=== PATIENT | female | born 1940 | race Caucasian/White ===

== ENCOUNTER 2018-06-30 09:51 | Outpatient (CLI) | payer OTHER, SELFPAY ==
[2018-06-30 10:08] LABS: Absolute Basophil Count 0.01 k/cumm (0.0-0.2); Absolute Eosinophil Count 0.04 k/cumm (0.0-0.7); Absolute Lymphocyte Count 1.12 k/cumm (1.2-3.4); Absolute Monocyte Count 0.39 k/cumm (0.11-0.7); Absolute Neutrophil Count 2.36 k/cumm (1.2-6.7); Basophils % 0.3; HCT 41.4 % (36.0-46.0); HGB 13.8 g/dL (12.0-15.5); Lymphocytes % 28.6; Mean Corp. HGB Concentration 33.3 g/dL (32.0-36.0); Mean Corpuscular Hemoglobin 36.2 pg (27.0-33.0); Mean Corpuscular Volume 108.7 fL (80-95); Mean Platelet Volume 10.3 fL (8.0-11.0); Monocytes % 9.9; Neutrophils % 60.2; Platelet Count 139 x1000/uL (130-400); RBC 3.81 m/cumm (4.00-5.20); RBC Distribution Width 14.2 % (11.7-14.6); White Blood Cell Count 3.92 k/cumm (4.4-10.8)
[2018-06-30 10:24] LABS: ALT 31 U/L (12-78); AST 21 U/L (15-37); Albumin 3.5 g/dL (3.4-5.0); Alkaline Phosphatase 241 U/L (46-116); Anion Gap 3.8 mmol/L (3-11); BUN 22 mg/dL (7-18); Bilirubin, Total 0.5 mg/dL (0.2-1.0); CO2 37.2 mmol/L (21.0-32.0); CREATININE 1.99 mg/dL (0.55-1.02); Calcium 8.8 mg/dL (8.5-10.1); Chloride 97 mmol/L (98-107); Estimated GFR 24.43 (mL/min/1.73m2); Glucose 96 mg/dL (70-100); Potassium 3.7 mmol/L (3.5-5.1); Sodium 138 mmol/L (136-145); Total Protein 6.9 g/dL (6.4-8.2)
[2018-07-03 11:05] LABS: Kappa Free Light Chain 4.68 mg/dl (0.33-1.94); Lambda Free Light Chain 4.14 mg/dl (0.57-2.63)
[2018-07-03 13:13] LABS: Albumin 64.4 % (55.8-66.1); Comment SEE COMMENTS; Total Protein 6.1 g/dl (6.3-8.2)
[2018-07-05 08:48] LABS: Immunotyping, Serum Interpretation:
== END 2018-06-30 09:52 ==
PROVIDERS: PCP Family Medicine; Visit Provider Internal Medicine Hematology & Oncology
DX: C90.00 Multiple myeloma not having achieved remission (principal)
CPT/HCPCS: 36415; 80053; 83883; 84165; 85025; 86320

== ENCOUNTER 2018-07-28 09:57 | Outpatient (CLI) | payer OTHER, SELFPAY ==
[2018-07-28 10:20] LABS: Abs Immature Grans 0.01 k/cumm (0.0-0.09); Absolute Basophil Count 0.01 k/cumm (0.0-0.2); Absolute Lymphocyte Count 0.87 k/cumm (1.2-3.4); Absolute Monocyte Count 0.35 k/cumm (0.11-0.7); Absolute Neutrophil Count 3.28 k/cumm (1.2-6.7); Basophils % 0.2; Eosinophils % 2.2; HCT 34.7 % (36.0-46.0); HGB 11.6 g/dL (12.0-15.5); Immature Grans % 0.2; Lymphocytes % 18.8; Mean Corp. HGB Concentration 33.4 g/dL (32.0-36.0); Mean Corpuscular Hemoglobin 35.3 pg (27.0-33.0); Mean Corpuscular Volume 105.5 fL (80-95); Mean Platelet Volume 10.3 fL (8.0-11.0); Monocytes % 7.6; Platelet Count 134 x1000/uL (130-400); RBC 3.29 m/cumm (4.00-5.20); RBC Distribution Width 12.2 % (11.7-14.6); White Blood Cell Count 4.62 k/cumm (4.4-10.8)
[2018-07-28 10:38] LABS: ALT 37 U/L (12-78); AST 22 U/L (15-37); Albumin 3.3 g/dL (3.4-5.0); Alkaline Phosphatase 291 U/L (46-116); Anion Gap 4.7 mmol/L (3-11); BUN 17 mg/dL (7-18); Bilirubin, Total 0.4 mg/dL (0.2-1.0); CO2 36.3 mmol/L (21.0-32.0); CREATININE 1.69 mg/dL (0.55-1.02); Calcium 8.9 mg/dL (8.5-10.1); Chloride 97 mmol/L (98-107); Glucose 92 mg/dL (70-100); Potassium 3.8 mmol/L (3.5-5.1); Sodium 138 mmol/L (136-145)
[2018-07-31 09:55] LABS: Kappa Free Light Chain 5.46 mg/dl (0.33-1.94)
[2018-07-31 14:43] LABS: Albumin 60.6 % (55.8-66.1); Total Protein 6.2 g/dl (6.3-8.2)
[2018-08-01 12:42] LABS: Monoclonal Spike SEE COMMENTS %
== END 2018-07-28 10:17 ==
PROVIDERS: PCP Family Medicine; Visit Provider Internal Medicine Hematology & Oncology
DX: C90.00 Multiple myeloma not having achieved remission (principal); N18.6 End stage renal disease; E11.9 Type 2 diabetes mellitus without complications; E03.9 Hypothyroidism, unspecified
CPT/HCPCS: 36415; 80053; 83883; 84165; 85025

== ENCOUNTER 2018-08-25 10:06 | Outpatient (CLI) | payer OTHER, SELFPAY ==
[2018-08-25 10:34] LABS: Absolute Basophil Count 0.01 k/cumm (0.0-0.2); Absolute Lymphocyte Count 0.95 k/cumm (1.2-3.4); Absolute Monocyte Count 0.38 k/cumm (0.11-0.7); Absolute Neutrophil Count 2.49 k/cumm (1.2-6.7); Basophils % 0.3; Eosinophils % 2.5; HCT 29.1 % (36.0-46.0); HGB 9.7 g/dL (12.0-15.5); Lymphocytes % 24.2; Mean Corp. HGB Concentration 33.3 g/dL (32.0-36.0); Mean Corpuscular Hemoglobin 35.5 pg (27.0-33.0); Mean Corpuscular Volume 106.6 fL (80-95); Mean Platelet Volume 9.2 fL (8.0-11.0); Monocytes % 9.7; Neutrophils % 63.3; Platelet Count 157 x1000/uL (130-400); RBC 2.73 m/cumm (4.00-5.20); RBC Distribution Width 13.8 % (11.7-14.6); White Blood Cell Count 3.93 k/cumm (4.4-10.8)
[2018-08-25 10:47] LABS: ALT 33 U/L (12-78); AST 24 U/L (15-37); Alkaline Phosphatase 269 U/L (46-116); Anion Gap 2.9 mmol/L (3-11); BUN 21 mg/dL (7-18); Bilirubin, Total 0.4 mg/dL (0.2-1.0); CO2 37.1 mmol/L (21.0-32.0); CREATININE 1.73 mg/dL (0.55-1.02); Calcium 8.5 mg/dL (8.5-10.1); Chloride 98 mmol/L (98-107); Estimated GFR 28.71 (mL/min/1.73m2); Glucose 73 mg/dL (70-100); Potassium 3.4 mmol/L (3.5-5.1); Sodium 138 mmol/L (136-145); Total Protein 6.6 g/dL (6.4-8.2)
[2018-08-28 09:28] LABS: Kappa Free Light Chain 6.15 mg/dl (0.33-1.94); Lambda Free Light Chain 6.64 mg/dl (0.57-2.63)
[2018-08-28 14:03] LABS: CMV IgG Antibody Positive
[2018-08-28 14:16] LABS: Albumin 59.7 % (55.8-66.1); Total Protein 5.9 g/dl (6.3-8.2)
== END 2018-08-25 10:26 ==
PROVIDERS: PCP Family Medicine; Visit Provider Internal Medicine Hematology & Oncology
DX: C90.00 Multiple myeloma not having achieved remission (principal)
CPT/HCPCS: 36415; 80053; 83883; 84165; 85025; 86644

== ENCOUNTER 2018-09-22 10:08 | Outpatient (CLI) | payer OTHER, SELFPAY ==
[2018-09-22 10:36] LABS: Abs Immature Grans 0.01 k/cumm (0.0-0.09); Absolute Basophil Count 0.01 k/cumm (0.0-0.2); Absolute Eosinophil Count 0.13 k/cumm (0.0-0.7); Absolute Lymphocyte Count 0.95 k/cumm (1.2-3.4); Absolute Monocyte Count 0.31 k/cumm (0.11-0.7); Basophils % 0.3; Eosinophils % 3.3; HCT 30.6 % (36.0-46.0); HGB 9.8 g/dL (12.0-15.5); Immature Grans % 0.3; Lymphocytes % 24.3; Mean Corpuscular Hemoglobin 35.5 pg (27.0-33.0); Mean Corpuscular Volume 110.9 fL (80-95); Mean Platelet Volume 9.8 fL (8.0-11.0); Monocytes % 7.9; Neutrophils % 63.9; Platelet Count 131 x1000/uL (130-400); RBC 2.76 m/cumm (4.00-5.20); RBC Distribution Width 15.8 % (11.7-14.6); White Blood Cell Count 3.91 k/cumm (4.4-10.8)
[2018-09-22 11:10] LABS: ALT 37 U/L (12-78); AST 24 U/L (15-37); Albumin 3.1 g/dL (3.4-5.0); Alkaline Phosphatase 236 U/L (46-116); Anion Gap 4.1 mmol/L (3-11); BUN 16 mg/dL (7-18); Bilirubin, Total 0.7 mg/dL (0.2-1.0); CO2 35.9 mmol/L (21.0-32.0); CREATININE 1.73 mg/dL (0.55-1.02); Calcium 8.6 mg/dL (8.5-10.1); Chloride 99 mmol/L (98-107); Estimated GFR 28.71 (mL/min/1.73m2); Glucose 69 mg/dL (70-100); Potassium 3.3 mmol/L (3.5-5.1); Sodium 139 mmol/L (136-145); Total Protein 6.4 g/dL (6.4-8.2)
[2018-09-25 10:39] LABS: Lambda Free Light Chain 4.86 mg/dl (0.57-2.63)
[2018-09-25 13:20] LABS: Albumin 60.6 % (55.8-66.1); Monoclonal Spike SEE COMMENTS %; Total Protein 5.8 g/dl (6.3-8.2)
== END 2018-09-22 10:28 ==
PROVIDERS: PCP Family Medicine; Visit Provider Internal Medicine Hematology & Oncology
DX: C90.00 Multiple myeloma not having achieved remission (principal)
CPT/HCPCS: 36415; 80053; 83883; 84165; 85025

== ENCOUNTER 2018-09-27 15:43 | Outpatient (REF) | payer OTHER, SELFPAY | END 2018-09-27 16:03 | LOC: LBN 15:43 | PROVIDERS: PCP Family Medicine; Visit Provider Nurse Practitioner Family | DX: C90.00 Multiple myeloma not having achieved remission (principal) | CPT/HCPCS: 87070; 87205 ==

== ENCOUNTER 2018-10-16 10:20 | Outpatient (CLI) | payer OTHER, SELFPAY ==
[2018-10-16 10:53] LABS: Abs Immature Grans 0.02 k/cumm (0.0-0.09); Absolute Basophil Count 0.01 k/cumm (0.0-0.2); Absolute Eosinophil Count 0.11 k/cumm (0.0-0.7); Absolute Lymphocyte Count 1.31 k/cumm (1.2-3.4); Absolute Neutrophil Count 3.75 k/cumm (1.2-6.7); Basophils % 0.2; Eosinophils % 1.9; HCT 32.8 % (36.0-46.0); HGB 10.4 g/dL (12.0-15.5); Immature Grans % 0.3; Lymphocytes % 22.6; Mean Corp. HGB Concentration 31.7 g/dL (32.0-36.0); Mean Corpuscular Hemoglobin 35.4 pg (27.0-33.0); Mean Corpuscular Volume 111.6 fL (80-95); Mean Platelet Volume 10.1 fL (8.0-11.0); Monocytes % 10.3; Neutrophils % 64.7; Platelet Count 133 x1000/uL (130-400); RBC 2.94 m/cumm (4.00-5.20); RBC Distribution Width 13.9 % (11.7-14.6)
[2018-10-16 11:06] LABS: ALT 31 U/L (12-78); AST 22 U/L (15-37); Alkaline Phosphatase 222 U/L (46-116); Anion Gap 8.5 mmol/L (3-11); BUN 23 mg/dL (7-18); Bilirubin, Total 0.4 mg/dL (0.2-1.0); CO2 32.5 mmol/L (21.0-32.0); CREATININE 2.43 mg/dL (0.55-1.02); Calcium 8.7 mg/dL (8.5-10.1); Chloride 100 mmol/L (98-107); Glucose 106 mg/dL (70-100); Potassium 3.9 mmol/L (3.5-5.1); Sodium 141 mmol/L (136-145); Total Protein 6.4 g/dL (6.4-8.2)
[2018-10-17 11:56] LABS: Kappa Free Light Chain 5.04 mg/dl (0.33-1.94); Lambda Free Light Chain 4.66 mg/dl (0.57-2.63)
[2018-10-17 12:41] LABS: Albumin 58.3 % (55.8-66.1); Total Protein 5.7 g/dl (6.3-8.2)
== END 2018-10-16 10:40 ==
PROVIDERS: PCP Family Medicine; Visit Provider Internal Medicine Hematology & Oncology
DX: C90.00 Multiple myeloma not having achieved remission (principal)
CPT/HCPCS: 36415; 80053; 83883; 84165; 85025; 86320

== ENCOUNTER 2018-10-30 07:16 | Outpatient (REF) | payer OTHER, SELFPAY ==
[2018-10-30 07:32] LABS: Abs Immature Grans 0.01 k/cumm (0.0-0.09); Absolute Basophil Count 0.02 k/cumm (0.0-0.2); Absolute Eosinophil Count 0.29 k/cumm (0.0-0.7); Absolute Lymphocyte Count 0.98 k/cumm (1.2-3.4); Absolute Monocyte Count 0.43 k/cumm (0.11-0.7); Absolute Neutrophil Count 4.33 k/cumm (1.2-6.7); Basophils % 0.3; Eosinophils % 4.8; HCT 30.9 % (36.0-46.0); HGB 10.1 g/dL (12.0-15.5); Immature Grans % 0.2; Lymphocytes % 16.2; Mean Corp. HGB Concentration 32.7 g/dL (32.0-36.0); Mean Corpuscular Hemoglobin 35.2 pg (27.0-33.0); Mean Corpuscular Volume 107.7 fL (80-95); Mean Platelet Volume 9.9 fL (8.0-11.0); Monocytes % 7.1; Neutrophils % 71.4; RBC 2.87 m/cumm (4.00-5.20); RBC Distribution Width 13.8 % (11.7-14.6); White Blood Cell Count 6.06 k/cumm (4.4-10.8)
[2018-10-30 07:52] LABS: ALT 30 U/L (12-78); AST 23 U/L (15-37); Alkaline Phosphatase 346 U/L (46-116); Anion Gap 13.3 mmol/L (3-11); Bilirubin, Total 0.4 mg/dL (0.2-1.0); CO2 25.7 mmol/L (21.0-32.0); Calcium 8.5 mg/dL (8.5-10.1); Chloride 99 mmol/L (98-107); Estimated GFR 8.42 (mL/min/1.73m2); Glucose 94 mg/dL (70-100); Macrocytosis 2+; Platelet Count 225 x1000/uL (130-400); Potassium 4.1 mmol/L (3.5-5.1); Sodium 138 mmol/L (136-145); Total Protein 6.2 g/dL (6.4-8.2)
[2018-10-30 07:59] LABS: BUN 96 mg/dL (7-18); CREATININE 5.01 mg/dL (0.55-1.02)
[2018-10-31 10:47] LABS: Kappa Free Light Chain 7.05 mg/dl (0.33-1.94); Lambda Free Light Chain 4.66 mg/dl (0.57-2.63)
[2018-10-31 12:58] LABS: Albumin 60.9 % (55.8-66.1); Total Protein 5.5 g/dl (6.3-8.2)
[2018-11-01 13:02] LABS: CMV IgG Antibody Positive
== END 2018-10-30 07:36 ==
LOC: LBO 07:16
PROVIDERS: PCP Family Medicine; Visit Provider Internal Medicine Hematology & Oncology
DX: C90.00 Multiple myeloma not having achieved remission (principal)
CPT/HCPCS: 80053; 83883; 84165; 85025; 86644

== ENCOUNTER 2018-11-27 06:58 | Outpatient (REF) | payer OTHER, SELFPAY ==
[2018-11-27 07:10] LABS: Abs Immature Grans 0.01 k/cumm (0.0-0.09); Absolute Basophil Count 0.02 k/cumm (0.0-0.2); Absolute Lymphocyte Count 1.25 k/cumm (1.2-3.4); Absolute Monocyte Count 0.39 k/cumm (0.11-0.7); Absolute Neutrophil Count 2.86 k/cumm (1.2-6.7); Basophils % 0.4; Eosinophils % 4.2; HCT 34.6 % (36.0-46.0); HGB 11.5 g/dL (12.0-15.5); Immature Grans % 0.2; Lymphocytes % 26.4; Mean Corp. HGB Concentration 33.2 g/dL (32.0-36.0); Mean Corpuscular Hemoglobin 35.1 pg (27.0-33.0); Mean Corpuscular Volume 105.5 fL (80-95); Mean Platelet Volume 10.1 fL (8.0-11.0); Monocytes % 8.2; Neutrophils % 60.6; Platelet Count 126 x1000/uL (130-400); RBC 3.28 m/cumm (4.00-5.20); White Blood Cell Count 4.73 k/cumm (4.4-10.8)
[2018-11-27 07:19] LABS: ALT 49 U/L (12-78); AST 41 U/L (15-37); Albumin 3.4 g/dL (3.4-5.0); Alkaline Phosphatase 295 U/L (46-116); Anion Gap 10.2 mmol/L (3-11); Bilirubin, Total 0.4 mg/dL (0.2-1.0); CO2 24.8 mmol/L (21.0-32.0); Calcium 8.7 mg/dL (8.5-10.1); Chloride 100 mmol/L (98-107); Estimated GFR 7.21 (mL/min/1.73m2); Glucose 84 mg/dL (70-100); Potassium 4.7 mmol/L (3.5-5.1); Sodium 135 mmol/L (136-145); Total Protein 6.5 g/dL (6.4-8.2)
[2018-11-27 07:40] LABS: Macrocytosis 2+
[2018-11-27 08:14] LABS: BUN 87 mg/dL (7-18); CREATININE 5.73 mg/dL (0.55-1.02)
[2018-11-28 11:53] LABS: Kappa Free Light Chain 7.18 mg/dl (0.33-1.94); Lambda Free Light Chain 4.44 mg/dl (0.57-2.63)
[2018-11-28 13:08] LABS: Albumin 62.5 % (55.8-66.1)
[2018-11-28 15:13] LABS: CMV Ab, IgM Negative (Negative)
== END 2018-11-27 07:18 ==
LOC: LBN 06:58
PROVIDERS: PCP Family Medicine; Visit Provider Internal Medicine Hematology & Oncology
DX: C90.00 Multiple myeloma not having achieved remission (principal)
CPT/HCPCS: 80053; 83883; 84165; 85025; 86644; 86645

== ENCOUNTER 2018-12-25 06:25 | Outpatient (REF) | payer OTHER, SELFPAY ==
[2018-12-25 06:43] LABS: Abs Immature Grans 0.01 k/cumm (0.0-0.09); Absolute Basophil Count 0.02 k/cumm (0.0-0.2); Absolute Eosinophil Count 0.17 k/cumm (0.0-0.7); Absolute Lymphocyte Count 1.03 k/cumm (1.2-3.4); Absolute Monocyte Count 0.46 k/cumm (0.11-0.7); Basophils % 0.4; Eosinophils % 3.3; HCT 31.5 % (36.0-46.0); HGB 10.4 g/dL (12.0-15.5); Immature Grans % 0.2; Lymphocytes % 20.2; Mean Corpuscular Hemoglobin 34.6 pg (27.0-33.0); Mean Corpuscular Volume 104.7 fL (80-95); Mean Platelet Volume 9.8 fL (8.0-11.0); Neutrophils % 66.9; Platelet Count 145 x1000/uL (130-400); RBC 3.01 m/cumm (4.00-5.20); RBC Distribution Width 13.8 % (11.7-14.6); White Blood Cell Count 5.09 k/cumm (4.4-10.8)
[2018-12-25 06:52] LABS: ALT 39 U/L (12-78); AST 30 U/L (15-37); Albumin 3.3 g/dL (3.4-5.0); Alkaline Phosphatase 248 U/L (46-116); Anion Gap 10.4 mmol/L (3-11); Bilirubin, Total 0.4 mg/dL (0.2-1.0); CO2 25.6 mmol/L (21.0-32.0); Calcium 8.7 mg/dL (8.5-10.1); Chloride 100 mmol/L (98-107); Estimated GFR 6.42 (mL/min/1.73m2); Glucose 98 mg/dL (70-100); Potassium 4.3 mmol/L (3.5-5.1); Sodium 136 mmol/L (136-145); Total Protein 6.4 g/dL (6.4-8.2)
[2018-12-25 07:56] LABS: BUN 80 mg/dL (7-18); CREATININE 6.32 mg/dL (0.55-1.02)
[2018-12-26 10:57] LABS: Kappa Free Light Chain 5.96 mg/dl (0.33-1.94)
[2018-12-26 12:43] LABS: Albumin 64.3 % (55.8-66.1); Total Protein 5.8 g/dl (6.3-8.2)
[2018-12-26 13:03] LABS: CMV Ab, IgM Negative (Negative)
== END 2018-12-25 06:45 ==
LOC: LBO 06:25
PROVIDERS: PCP Family Medicine; Visit Provider Internal Medicine Hematology & Oncology
DX: C90.00 Multiple myeloma not having achieved remission (principal)
CPT/HCPCS: 80053; 83883; 84165; 85025; 86644; 86645

== ENCOUNTER 2019-01-22 07:28 | Outpatient (REF) | payer OTHER, SELFPAY ==
[2019-01-22 08:06] LABS: ALT 35 U/L (12-78); AST 28 U/L (15-37); Albumin 3.5 g/dL (3.4-5.0); Alkaline Phosphatase 246 U/L (46-116); Anion Gap 11.5 mmol/L (3-11); Bilirubin, Total 0.5 mg/dL (0.2-1.0); CO2 24.5 mmol/L (21.0-32.0); Calcium 8.8 mg/dL (8.5-10.1); Chloride 104 mmol/L (98-107); Estimated GFR 6.86 (mL/min/1.73m2); Glucose 82 mg/dL (70-100); Potassium 4.8 mmol/L (3.5-5.1); Sodium 140 mmol/L (136-145); Total Protein 6.2 g/dL (6.4-8.2)
[2019-01-22 08:18] LABS: BUN 92 mg/dL (7-18)
[2019-01-22 08:19] LABS: CREATININE 5.97 mg/dL (0.55-1.02)
[2019-01-23 12:29] LABS: Kappa Free Light Chain 5.91 mg/dl (0.33-1.94); Lambda Free Light Chain 3.73 mg/dl (0.57-2.63)
[2019-01-23 13:09] LABS: Albumin 60.8 % (55.8-66.1); Comment SEE COMMENTS; Total Protein 6.4 g/dl (6.3-8.2)
[2019-01-23 19:34] LABS: CMV DNA Detect/Quant, P Undetected IU/mL (Undetected)
[2019-01-24 10:39] LABS: Abs Immature Grans 0.01 k/cumm (0.0-0.09); Absolute Basophil Count 0.01 k/cumm (0.0-0.2); Absolute Eosinophil Count 0.17 k/cumm (0.0-0.7); Absolute Lymphocyte Count 0.82 k/cumm (1.2-3.4); Absolute Monocyte Count 0.43 k/cumm (0.11-0.7); Basophils % 0.3; Eosinophils % 4.5; HCT 32.9 % (36.0-46.0); HGB 10.7 g/dL (12.0-15.5); Immature Grans % 0.3; Lymphocytes % 21.9; Mean Corp. HGB Concentration 32.5 g/dL (32.0-36.0); Mean Corpuscular Hemoglobin 35.7 pg (27.0-33.0); Mean Corpuscular Volume 109.7 fL (80-95); Mean Platelet Volume 11.8 fL (8.0-11.0); Monocytes % 11.5; Neutrophils % 61.5; Platelet Count 135 x1000/uL (130-400); White Blood Cell Count 3.74 k/cumm (4.4-10.8)
== END 2019-01-22 07:48 ==
LOC: LBN 07:28
PROVIDERS: PCP Family Medicine; Visit Provider Internal Medicine Hematology & Oncology
DX: C90.00 Multiple myeloma not having achieved remission (principal)
CPT/HCPCS: 80053; 83883; 84165; 85025; 86320; 87497

== ENCOUNTER 2019-02-19 06:51 | Outpatient (REF) | payer OTHER, SELFPAY ==
[2019-02-19 09:49] LABS: ALT 31 U/L (12-78); AST 23 U/L (15-37); Albumin 3.3 g/dL (3.4-5.0); Alkaline Phosphatase 240 U/L (46-116); BUN 79 mg/dL (7-18); Bilirubin, Total 0.4 mg/dL (0.2-1.0); Calcium 8.9 mg/dL (8.5-10.1); Chloride 101 mmol/L (98-107); Glucose 82 mg/dL (70-100); Potassium 4.3 mmol/L (3.5-5.1); Sodium 137 mmol/L (136-145)
[2019-02-19 09:50] LABS: Abs Immature Grans 0.01 k/cumm (0.0-0.09); Absolute Basophil Count 0.01 k/cumm (0.0-0.2); Absolute Eosinophil Count 0.09 k/cumm (0.0-0.7); Absolute Lymphocyte Count 0.88 k/cumm (1.2-3.4); Basophils % 0.2; Eosinophils % 2.1; HCT 32.3 % (36.0-46.0); HGB 10.9 g/dL (12.0-15.5); Immature Grans % 0.2; Lymphocytes % 20.9; Mean Corp. HGB Concentration 33.7 g/dL (32.0-36.0); Mean Corpuscular Hemoglobin 35.7 pg (27.0-33.0); Mean Corpuscular Volume 105.9 fL (80-95); Mean Platelet Volume 10.2 fL (8.0-11.0); Monocytes % 7.1; Neutrophils % 69.5; Platelet Count 131 x1000/uL (130-400); RBC 3.05 m/cumm (4.00-5.20); RBC Distribution Width 12.5 % (11.7-14.6); White Blood Cell Count 4.21 k/cumm (4.4-10.8)
[2019-02-19 09:51] LABS: Absolute Neutrophil Count 2.93 k/cumm (1.2-6.7)
[2019-02-19 09:59] LABS: CREATININE 5.06 mg/dL (0.55-1.02)
[2019-02-19 10:34] LABS: Anisocytosis 1+; Basophilic Stippling Present; Diff Comment Diff Reviewed
[2019-02-19 10:35] LABS: Macrocytosis 2+; Polychromasia Present
[2019-02-20 10:55] LABS: Kappa Free Light Chain 7.75 mg/dl (0.33-1.94); Lambda Free Light Chain 4.04 mg/dl (0.57-2.63)
[2019-02-20 13:27] LABS: Albumin 64.1 % (55.8-66.1); Total Protein 5.8 g/dl (6.3-8.2)
== END 2019-02-19 07:11 ==
LOC: LBN 06:51
PROVIDERS: PCP Family Medicine; Visit Provider Internal Medicine Hematology & Oncology
DX: C90.00 Multiple myeloma not having achieved remission (principal)
CPT/HCPCS: 80053; 83883; 84165; 85025

== ENCOUNTER 2019-03-19 06:43 | Outpatient (REF) | payer OTHER, SELFPAY ==
[2019-03-19 07:12] LABS: Abs Immature Grans 0.01 k/cumm (0.0-0.09); Absolute Basophil Count 0.01 k/cumm (0.0-0.2); Absolute Eosinophil Count 0.19 k/cumm (0.0-0.7); Absolute Lymphocyte Count 0.93 k/cumm (1.2-3.4); Absolute Monocyte Count 0.51 k/cumm (0.11-0.7); Absolute Neutrophil Count 3.77 k/cumm (1.2-6.7); Basophils % 0.2; Eosinophils % 3.5; HCT 31.8 % (36.0-46.0); HGB 10.5 g/dL (12.0-15.5); Immature Grans % 0.2; Lymphocytes % 17.2; Mean Corpuscular Hemoglobin 33.9 pg (27.0-33.0); Mean Corpuscular Volume 102.6 fL (80-95); Monocytes % 9.4; Neutrophils % 69.5; Platelet Count 151 x1000/uL (130-400); RBC Distribution Width 11.9 % (11.7-14.6); White Blood Cell Count 5.42 k/cumm (4.4-10.8)
[2019-03-19 07:25] LABS: ALT 36 U/L (12-78); AST 26 U/L (15-37); Albumin 3.3 g/dL (3.4-5.0); Alkaline Phosphatase 274 U/L (46-116); BUN 69 mg/dL (7-18); Bilirubin, Total 0.4 mg/dL (0.2-1.0); Calcium 8.8 mg/dL (8.5-10.1); Chloride 99 mmol/L (98-107); Estimated GFR 9.02 (mL/min/1.73m2); Glucose 91 mg/dL (70-100); Potassium 4.6 mmol/L (3.5-5.1); Sodium 135 mmol/L (136-145); Total Protein 6.5 g/dL (6.4-8.2)
[2019-03-19 08:19] LABS: CREATININE 4.71 mg/dL (0.55-1.02)
[2019-03-20 10:43] LABS: IgA 67 mg/dL (85-499); IgG 627 mg/dL (610-1616); IgM 166 mg/dL (35-242)
[2019-03-20 14:08] LABS: Albumin 62.6 % (55.8-66.1)
== END 2019-03-19 07:03 ==
LOC: LBN 06:43
PROVIDERS: PCP Family Medicine; Visit Provider Internal Medicine Hematology & Oncology
DX: C90.00 Multiple myeloma not having achieved remission (principal)
CPT/HCPCS: 80053; 82784; 84165; 85025

== ENCOUNTER 2019-04-16 06:29 | Outpatient (REF) | payer OTHER, SELFPAY ==
[2019-04-16 06:58] LABS: Abs Immature Grans 0.02 k/cumm (0.0-0.09); Absolute Basophil Count 0.01 k/cumm (0.0-0.2); Absolute Eosinophil Count 0.11 k/cumm (0.0-0.7); Absolute Lymphocyte Count 1.03 k/cumm (1.2-3.4); Absolute Monocyte Count 0.36 k/cumm (0.11-0.7); Absolute Neutrophil Count 3.96 k/cumm (1.2-6.7); Basophils % 0.2; HCT 34.6 % (36.0-46.0); HGB 11.7 g/dL (12.0-15.5); Immature Grans % 0.4; Lymphocytes % 18.8; Mean Corp. HGB Concentration 33.8 g/dL (32.0-36.0); Mean Corpuscular Hemoglobin 34.7 pg (27.0-33.0); Mean Corpuscular Volume 102.7 fL (80-95); Mean Platelet Volume 9.9 fL (8.0-11.0); Monocytes % 6.6; Platelet Count 159 x1000/uL (130-400); RBC 3.37 m/cumm (4.00-5.20); RBC Distribution Width 13.1 % (11.7-14.6); White Blood Cell Count 5.49 k/cumm (4.4-10.8)
[2019-04-16 07:21] LABS: ALT 38 U/L (12-78); AST 29 U/L (15-37); Albumin 3.4 g/dL (3.4-5.0); Alkaline Phosphatase 265 U/L (46-116); Anion Gap 9.8 mmol/L (3-11); Bilirubin, Total 0.3 mg/dL (0.2-1.0); CO2 25.2 mmol/L (21.0-32.0); Calcium 8.7 mg/dL (8.5-10.1); Chloride 98 mmol/L (98-107); Glucose 92 mg/dL (70-100); Potassium 4.8 mmol/L (3.5-5.1); Sodium 133 mmol/L (136-145); Total Protein 6.6 g/dL (6.4-8.2)
[2019-04-16 08:26] LABS: BUN 81 mg/dL (7-18)
[2019-04-16 08:27] LABS: CREATININE 4.63 mg/dL (0.55-1.02)
[2019-04-17 10:56] LABS: Kappa Free Light Chain 7.55 mg/dl (0.33-1.94); Lambda Free Light Chain 4.75 mg/dl (0.57-2.63)
[2019-04-17 14:05] LABS: Albumin 63.3 % (55.8-66.1); Total Protein 6.4 g/dl (6.3-8.2)
== END 2019-04-16 06:49 ==
LOC: LBN 06:29
PROVIDERS: PCP Family Medicine; Visit Provider Internal Medicine Hematology & Oncology
DX: C90.00 Multiple myeloma not having achieved remission (principal)
CPT/HCPCS: 80053; 83883; 84165; 85025

== ENCOUNTER 2019-05-14 06:53 | Outpatient (REF) | payer OTHER, SELFPAY ==
[2019-05-14 07:11] LABS: Abs Immature Grans 0.01 k/cumm (0.0-0.09); Absolute Basophil Count 0.03 k/cumm (0.0-0.2); Absolute Eosinophil Count 0.08 k/cumm (0.0-0.7); Absolute Lymphocyte Count 0.95 k/cumm (1.2-3.4); Absolute Monocyte Count 0.45 k/cumm (0.11-0.7); Absolute Neutrophil Count 3.13 k/cumm (1.2-6.7); Basophils % 0.6; Eosinophils % 1.7; HCT 32.1 % (36.0-46.0); HGB 10.9 g/dL (12.0-15.5); Immature Grans % 0.2; Lymphocytes % 20.4; Mean Corpuscular Hemoglobin 34.5 pg (27.0-33.0); Mean Corpuscular Volume 101.6 fL (80-95); Mean Platelet Volume 9.9 fL (8.0-11.0); Monocytes % 9.7; Neutrophils % 67.4; Platelet Count 131 x1000/uL (130-400); RBC 3.16 m/cumm (4.00-5.20); RBC Distribution Width 12.5 % (11.7-14.6); White Blood Cell Count 4.65 k/cumm (4.4-10.8)
[2019-05-14 07:13] LABS: ALT 36 U/L (12-78); AST 30 U/L (15-37); Albumin 3.4 g/dL (3.4-5.0); Alkaline Phosphatase 262 U/L (46-116); Anion Gap 10.8 mmol/L (3-11); BUN 61 mg/dL (7-18); Bilirubin, Total 0.4 mg/dL (0.2-1.0); CO2 23.2 mmol/L (21.0-32.0); Calcium 8.6 mg/dL (8.5-10.1); Chloride 101 mmol/L (98-107); Estimated GFR 10.12 (mL/min/1.73m2); Glucose 96 mg/dL (70-100); Potassium 4.8 mmol/L (3.5-5.1); Sodium 135 mmol/L (136-145); Total Protein 6.5 g/dL (6.4-8.2)
[2019-05-14 07:46] LABS: CREATININE 4.26 mg/dL (0.55-1.02)
[2019-05-15 10:43] LABS: Lambda Free Light Chain 4.25 mg/dl (0.57-2.63)
[2019-05-15 12:06] LABS: Albumin 63.3 % (55.8-66.1); Total Protein 5.8 g/dl (6.3-8.2)
== END 2019-05-14 07:13 ==
LOC: LBN 06:53
PROVIDERS: PCP Family Medicine; Visit Provider Internal Medicine Hematology & Oncology
DX: C90.00 Multiple myeloma not having achieved remission (principal)
CPT/HCPCS: 80053; 83883; 84165; 85025

== ENCOUNTER 2019-06-25 06:45 | Outpatient (REF) | payer OTHER, SELFPAY ==
[2019-06-25 07:38] LABS: Abs Immature Grans 0.01 k/cumm (0.0-0.09); Absolute Basophil Count 0.01 k/cumm (0.0-0.2); Absolute Eosinophil Count 0.05 k/cumm (0.0-0.7); Absolute Lymphocyte Count 0.79 k/cumm (1.2-3.4); Absolute Monocyte Count 0.34 k/cumm (0.11-0.7); Absolute Neutrophil Count 2.76 k/cumm (1.2-6.7); Basophils % 0.3; Eosinophils % 1.3; HCT 33.5 % (36.0-46.0); HGB 11.3 g/dL (12.0-15.5); Immature Grans % 0.3; Lymphocytes % 19.9; Mean Corp. HGB Concentration 33.7 g/dL (32.0-36.0); Mean Corpuscular Hemoglobin 34.8 pg (27.0-33.0); Mean Corpuscular Volume 103.1 fL (80-95); Mean Platelet Volume 10.1 fL (8.0-11.0); Monocytes % 8.6; Neutrophils % 69.6; Platelet Count 150 x1000/uL (130-400); RBC 3.25 m/cumm (4.00-5.20); RBC Distribution Width 13.1 % (11.7-14.6); White Blood Cell Count 3.96 k/cumm (4.4-10.8)
[2019-06-25 07:49] LABS: ALT 40 U/L (12-78); AST 28 U/L (15-37); Albumin 3.5 g/dL (3.4-5.0); Alkaline Phosphatase 219 U/L (46-116); Anion Gap 10.7 mmol/L (3-11); BUN 77 mg/dL (7-18); Bilirubin, Total 0.4 mg/dL (0.2-1.0); CO2 24.3 mmol/L (21.0-32.0); Calcium 8.4 mg/dL (8.5-10.1); Chloride 100 mmol/L (98-107); Estimated GFR 8.63 (mL/min/1.73m2); Glucose 96 mg/dL (70-100); Potassium 4.8 mmol/L (3.5-5.1); Sodium 135 mmol/L (136-145); Total Protein 6.5 g/dL (6.4-8.2)
[2019-06-25 08:17] LABS: CREATININE 4.89 mg/dL (0.55-1.02)
[2019-06-26 10:52] LABS: IgA 76 mg/dL (85-499); IgG 623 mg/dL (610-1616); IgM 176 mg/dL (35-242); Kappa Free Light Chain 7.25 mg/dl (0.33-1.94); Lambda Free Light Chain 4.38 mg/dl (0.57-2.63)
[2019-06-26 13:25] LABS: Albumin 66.5 % (55.8-66.1); Total Protein 6.2 g/dl (6.3-8.2)
== END 2019-06-25 07:05 ==
LOC: LBN 06:45
PROVIDERS: PCP Family Medicine; Visit Provider Internal Medicine Hematology & Oncology
DX: C90.00 Multiple myeloma not having achieved remission (principal)
CPT/HCPCS: 80053; 82784; 83883; 84165; 85025

== ENCOUNTER 2019-08-06 09:14 | Outpatient (REF) | payer OTHER, SELFPAY ==
[2019-08-06 06:56] LABS: Abs Immature Grans 0.01 k/cumm (0.0-0.09); Absolute Basophil Count 0.01 k/cumm (0.0-0.2); Absolute Eosinophil Count 0.09 k/cumm (0.0-0.7); Absolute Lymphocyte Count 0.96 k/cumm (1.2-3.4); Absolute Monocyte Count 0.41 k/cumm (0.11-0.7); Absolute Neutrophil Count 3.02 k/cumm (1.2-6.7); Basophils % 0.2; HCT 30.5 % (36.0-46.0); HGB 10.3 g/dL (12.0-15.5); Immature Grans % 0.2; Lymphocytes % 21.3; Mean Corp. HGB Concentration 33.8 g/dL (32.0-36.0); Mean Corpuscular Hemoglobin 34.6 pg (27.0-33.0); Mean Corpuscular Volume 102.3 fL (80-95); Mean Platelet Volume 9.4 fL (8.0-11.0); Monocytes % 9.1; Neutrophils % 67.2; Platelet Count 175 x1000/uL (130-400); RBC 2.98 m/cumm (4.00-5.20); RBC Distribution Width 13.3 % (11.7-14.6)
[2019-08-06 07:12] LABS: ALT 37 U/L (14-59); AST 23 U/L (15-37); Albumin 3.4 g/dL (3.4-5.0); Alkaline Phosphatase 241 U/L (46-116); Bilirubin, Total 0.5 mg/dL (0.2-1.0); Calcium 8.2 mg/dL (8.5-10.1); Chloride 97 mmol/L (98-107); Glucose 100 mg/dL (70-100); Potassium 4.7 mmol/L (3.5-5.1); Sodium 133 mmol/L (136-145); Total Protein 6.4 g/dL (6.4-8.2)
[2019-08-06 07:30] LABS: BUN 80 mg/dL (7-18)
[2019-08-07 10:26] LABS: IgA 81 mg/dL (85-499); IgG 608 mg/dL (610-1616); IgM 210 mg/dL (35-242); Kappa Free Light Chain 7.56 mg/dl (0.33-1.94); Lambda Free Light Chain 5.33 mg/dl (0.57-2.63)
[2019-08-07 13:46] LABS: Albumin 66.8 % (55.8-66.1); Total Protein 5.9 g/dl (6.3-8.2)
== END 2019-08-06 09:34 ==
LOC: LBN 09:14
PROVIDERS: PCP Family Medicine; Referring Provider Internal Medicine Hematology & Oncology; Visit Provider Internal Medicine Hematology & Oncology
DX: C90.00 Multiple myeloma not having achieved remission (principal); N18.6 End stage renal disease; Z99.2 Dependence on renal dialysis
CPT/HCPCS: 80053; 82784; 83883; 84165; 85025

== ENCOUNTER 2019-09-17 06:46 | Outpatient (REF) | payer OTHER, SELFPAY ==
[2019-09-17 07:05] LABS: Abs Immature Grans 0.01 k/cumm (0.0-0.09); Absolute Basophil Count 0.03 k/cumm (0.0-0.2); Absolute Eosinophil Count 0.06 k/cumm (0.0-0.7); Absolute Lymphocyte Count 1.04 k/cumm (1.2-3.4); Absolute Monocyte Count 0.46 k/cumm (0.11-0.7); Absolute Neutrophil Count 4.69 k/cumm (1.2-6.7); Basophils % 0.5; HGB 11.7 g/dL (12.0-15.5); Immature Grans % 0.2; Lymphocytes % 16.5; Mean Corp. HGB Concentration 33.4 g/dL (32.0-36.0); Mean Corpuscular Hemoglobin 34.1 pg (27.0-33.0); Mean Platelet Volume 10.1 fL (8.0-11.0); Monocytes % 7.3; Neutrophils % 74.5; Platelet Count 145 x1000/uL (130-400); RBC 3.43 m/cumm (4.00-5.20); RBC Distribution Width 12.9 % (11.7-14.6); White Blood Cell Count 6.29 k/cumm (4.4-10.8)
[2019-09-17 08:12] LABS: ALT 39 U/L (14-59); AST 27 U/L (15-37); Albumin 3.5 g/dL (3.4-5.0); Alkaline Phosphatase 231 U/L (46-116); Anion Gap 11.1 mmol/L (3-11); Bilirubin, Total 0.4 mg/dL (0.2-1.0); CO2 23.9 mmol/L (21.0-32.0); Calcium 8.7 mg/dL (8.5-10.1); Chloride 101 mmol/L (98-107); Estimated GFR 8.32 (mL/min/1.73m2); Glucose 93 mg/dL (70-100); Potassium 4.9 mmol/L (3.5-5.1); Sodium 136 mmol/L (136-145); Total Protein 6.7 g/dL (6.4-8.2)
[2019-09-17 08:14] LABS: BUN 85 mg/dL (7-18)
[2019-09-17 08:15] LABS: CREATININE 5.05 mg/dL (0.55-1.02)
[2019-09-18 10:58] LABS: Kappa Free Light Chain 9.37 mg/dl (0.33-1.94); Lambda Free Light Chain 5.03 mg/dl (0.57-2.63)
[2019-09-18 11:44] LABS: IgA 81 mg/dL (85-499); IgG 640 mg/dL (610-1616); IgM 221 mg/dL (35-242)
[2019-09-18 13:06] LABS: Total Protein 6.3 g/dl (6.3-8.2)
== END 2019-09-17 07:06 ==
LOC: LBN 06:46
PROVIDERS: PCP Family Medicine; Visit Provider Internal Medicine Hematology & Oncology
DX: C90.00 Multiple myeloma not having achieved remission (principal); N18.6 End stage renal disease; Z99.2 Dependence on renal dialysis
CPT/HCPCS: 80053; 82784; 83883; 84165; 85025

== ENCOUNTER 2019-10-08 06:46 | Outpatient (REF) | payer OTHER, SELFPAY ==
[2019-10-08 06:55] LABS: Abs Immature Grans 0.03 k/cumm (0.0-0.09); Absolute Basophil Count 0.02 k/cumm (0.0-0.2); Absolute Eosinophil Count 0.06 k/cumm (0.0-0.7); Absolute Lymphocyte Count 0.92 k/cumm (1.2-3.4); Absolute Monocyte Count 0.45 k/cumm (0.11-0.7); Absolute Neutrophil Count 3.31 k/cumm (1.2-6.7); Basophils % 0.4; Eosinophils % 1.3; HCT 29.2 % (36.0-46.0); HGB 9.9 g/dL (12.0-15.5); Immature Grans % 0.6; Lymphocytes % 19.2; Mean Corp. HGB Concentration 33.9 g/dL (32.0-36.0); Mean Corpuscular Volume 100.3 fL (80-95); Mean Platelet Volume 9.8 fL (8.0-11.0); Monocytes % 9.4; Neutrophils % 69.1; Platelet Count 142 x1000/uL (130-400); RBC 2.91 m/cumm (4.00-5.20); RBC Distribution Width 12.9 % (11.7-14.6); White Blood Cell Count 4.79 k/cumm (4.4-10.8)
[2019-10-08 07:27] LABS: Diff Comment RBC Morph Reviewed; Macrocytosis 1+
== END 2019-10-08 07:06 ==
LOC: LBN 06:46
PROVIDERS: PCP Family Medicine; Visit Provider Internal Medicine Hematology & Oncology
DX: C90.00 Multiple myeloma not having achieved remission (principal); N18.6 End stage renal disease; Z99.2 Dependence on renal dialysis
CPT/HCPCS: 85025

== ENCOUNTER 2019-10-29 07:07 | Outpatient (REF) | payer OTHER, SELFPAY ==
[2019-10-29 07:16] LABS: Abs Immature Grans 0.01 k/cumm (0.0-0.09); Absolute Basophil Count 0.02 k/cumm (0.0-0.2); Absolute Eosinophil Count 0.07 k/cumm (0.0-0.7); Absolute Lymphocyte Count 1.09 k/cumm (1.2-3.4); Absolute Neutrophil Count 2.89 k/cumm (1.2-6.7); Basophils % 0.4; Eosinophils % 1.6; HCT 30.2 % (36.0-46.0); HGB 9.9 g/dL (12.0-15.5); Immature Grans % 0.2; Lymphocytes % 24.3; Mean Corp. HGB Concentration 32.8 g/dL (32.0-36.0); Mean Corpuscular Hemoglobin 33.7 pg (27.0-33.0); Mean Corpuscular Volume 102.7 fL (80-95); Mean Platelet Volume 9.7 fL (8.0-11.0); Monocytes % 8.9; Neutrophils % 64.6; Platelet Count 155 x1000/uL (130-400); RBC 2.94 m/cumm (4.00-5.20); White Blood Cell Count 4.48 k/cumm (4.4-10.8)
== END 2019-10-29 07:27 ==
LOC: LBN 07:07
PROVIDERS: PCP Family Medicine; Visit Provider Internal Medicine Hematology & Oncology
DX: C90.00 Multiple myeloma not having achieved remission (principal); N18.6 End stage renal disease; Z99.2 Dependence on renal dialysis
CPT/HCPCS: 85025

== ENCOUNTER 2019-11-19 06:29 | Outpatient (REF) | payer OTHER, SELFPAY ==
[2019-11-19 06:56] LABS: Abs Immature Grans 0.01 k/cumm (0.0-0.09); Absolute Basophil Count 0.02 k/cumm (0.0-0.2); Absolute Eosinophil Count 0.09 k/cumm (0.0-0.7); Absolute Lymphocyte Count 1.05 k/cumm (1.2-3.4); Absolute Monocyte Count 0.44 k/cumm (0.11-0.7); Absolute Neutrophil Count 3.04 k/cumm (1.2-6.7); Basophils % 0.4; Eosinophils % 1.9; HCT 33.3 % (36.0-46.0); HGB 10.9 g/dL (12.0-15.5); Immature Grans % 0.2 %; Lymphocytes % 22.6; Mean Corp. HGB Concentration 32.7 g/dL (32.0-36.0); Mean Corpuscular Hemoglobin 34.1 pg (27.0-33.0); Mean Corpuscular Volume 104.1 fL (80-95); Mean Platelet Volume 9.8 fL (8.0-11.0); Monocytes % 9.5; Neutrophils % 65.4; Platelet Count 169 x1000/uL (130-400); White Blood Cell Count 4.65 k/cumm (4.4-10.8)
[2019-11-19 07:09] LABS: ALT 26 U/L (14-59); AST 20 U/L (15-37); Albumin 3.5 g/dL (3.4-5.0); Alkaline Phosphatase 218 U/L (46-116); Anion Gap 10.3 mmol/L (3-11); BUN 69 mg/dL (7-18); Bilirubin, Total 0.6 mg/dL (0.2-1.0); CO2 23.7 mmol/L (21.0-32.0); Calcium 8.4 mg/dL (8.5-10.1); Chloride 99 mmol/L (98-107); Estimated GFR 8.91 (mL/min/1.73m2); Glucose 94 mg/dL (74-106); Potassium 5.2 mmol/L (3.5-5.1); Sodium 133 mmol/L (136-145); Total Protein 6.5 g/dL (6.4-8.2)
[2019-11-19 08:09] LABS: CREATININE 4.76 mg/dL (0.55-1.02)
[2019-11-20 10:24] LABS: Kappa Free Light Chain 9.36 mg/dL (0.33-1.94); Lambda Free Light Chain 4.59 mg/dL (0.57-2.63)
[2019-11-20 14:30] LABS: Albumin 64.3 % (55.8-66.1); Comment (See Note); Total Protein 6.2 g/dL (6.3-8.2)
[2019-11-21 09:24] LABS: Immunotyping, Serum (See Note)
== END 2019-11-19 06:49 ==
LOC: LBN 06:29
PROVIDERS: PCP Family Medicine; Visit Provider Internal Medicine Hematology & Oncology
DX: C90.00 Multiple myeloma not having achieved remission (principal); N18.6 End stage renal disease; Z99.2 Dependence on renal dialysis
CPT/HCPCS: 80053; 83883; 84165; 85025; 86320

== ENCOUNTER 2019-12-10 17:55 | Outpatient (REF) | payer OTHER, SELFPAY ==
[2019-12-10 07:21] LABS: Absolute Basophil Count 0.02 k/cumm (0.0-0.2); Absolute Eosinophil Count 0.06 k/cumm (0.0-0.7); Absolute Lymphocyte Count 1.06 k/cumm (1.2-3.4); Absolute Monocyte Count 0.46 k/cumm (0.11-0.7); Absolute Neutrophil Count 3.17 k/cumm (1.2-6.7); Basophils % 0.4; Eosinophils % 1.3; HCT 34.8 % (36.0-46.0); HGB 11.6 g/dL (12.0-15.5); Lymphocytes % 22.2; Mean Corp. HGB Concentration 33.3 g/dL (32.0-36.0); Mean Corpuscular Hemoglobin 34.2 pg (27.0-33.0); Mean Corpuscular Volume 102.7 fL (80-95); Mean Platelet Volume 10.3 fL (8.0-11.0); Monocytes % 9.6; Neutrophils % 66.5; Platelet Count 150 x1000/uL (130-400); RBC 3.39 m/cumm (4.00-5.20); White Blood Cell Count 4.77 k/cumm (4.4-10.8)
== END 2019-12-10 18:15 ==
LOC: LBN 17:55
PROVIDERS: PCP Family Medicine; Visit Provider Internal Medicine Hematology & Oncology
DX: C90.00 Multiple myeloma not having achieved remission (principal); N18.6 End stage renal disease; Z99.2 Dependence on renal dialysis
CPT/HCPCS: 85025

== ENCOUNTER 2019-12-31 06:31 | Outpatient (REF) | payer OTHER, SELFPAY ==
[2019-12-31 06:59] LABS: Abs Immature Grans 0.01 k/cumm (0.0-0.09); Absolute Basophil Count 0.01 k/cumm (0.0-0.2); Absolute Eosinophil Count 0.08 k/cumm (0.0-0.7); Absolute Neutrophil Count 3.76 k/cumm (1.2-6.7); Basophils % 0.2; Eosinophils % 1.4; HCT 33.8 % (36.0-46.0); Immature Grans % 0.2 %; Lymphocytes % 21.6; Mean Corp. HGB Concentration 32.5 g/dL (32.0-36.0); Mean Corpuscular Hemoglobin 33.8 pg (27.0-33.0); Mean Platelet Volume 9.8 fL (8.0-11.0); Neutrophils % 67.6; Platelet Count 171 x1000/uL (130-400); RBC 3.25 m/cumm (4.00-5.20); RBC Distribution Width 13.6 % (11.7-14.6); White Blood Cell Count 5.56 k/cumm (4.4-10.8)
== END 2019-12-31 06:51 ==
LOC: LBN 06:31
PROVIDERS: PCP Family Medicine; Visit Provider Internal Medicine Hematology & Oncology
DX: C90.00 Multiple myeloma not having achieved remission (principal); N18.6 End stage renal disease; Z99.2 Dependence on renal dialysis
CPT/HCPCS: 85025

== ENCOUNTER 2020-01-21 07:00 | Outpatient (REF) | payer OTHER, SELFPAY ==
[2020-01-21 07:12] LABS: Abs Immature Grans 0.01 k/cumm (0.0-0.09); Absolute Basophil Count 0.02 k/cumm (0.0-0.2); Absolute Eosinophil Count 0.13 k/cumm (0.0-0.7); Absolute Lymphocyte Count 0.97 k/cumm (1.2-3.4); Absolute Monocyte Count 0.43 k/cumm (0.11-0.7); Absolute Neutrophil Count 3.68 k/cumm (1.2-6.7); Basophils % 0.4; Eosinophils % 2.5; HCT 31.8 % (36.0-46.0); HGB 10.8 g/dL (12.0-15.5); Immature Grans % 0.2 %; Lymphocytes % 18.5; Mean Platelet Volume 10.5 fL (8.0-11.0); Monocytes % 8.2; Neutrophils % 70.2; Platelet Count 151 x1000/uL (130-400); RBC 3.18 m/cumm (4.00-5.20); RBC Distribution Width 12.3 % (11.7-14.6); White Blood Cell Count 5.24 k/cumm (4.4-10.8)
[2020-01-21 07:26] LABS: ALT 34 U/L (14-59); AST 32 U/L (15-37); Albumin 3.5 g/dL (3.4-5.0); Alkaline Phosphatase 227 U/L (46-116); Anion Gap 10.3 mmol/L (3-11); BUN 75 mg/dL (7-18); Bilirubin, Total 0.3 mg/dL (0.2-1.0); CO2 24.7 mmol/L (21.0-32.0); Calcium 8.3 mg/dL (8.5-10.1); Chloride 98 mmol/L (98-107); Glucose 96 mg/dL (74-106); Potassium 4.6 mmol/L (3.5-5.1); Sodium 133 mmol/L (136-145); Total Protein 6.4 g/dL (6.4-8.2)
[2020-01-21 08:04] LABS: CREATININE 4.66 mg/dL (0.55-1.02)
[2020-01-22 10:07] LABS: IgA 78 mg/dL (85-499); IgG 598 mg/dL (610-1,616); IgM 216 mg/dL (35-242); Kappa Free Light Chain 9.59 mg/dL (0.33-1.94); Lambda Free Light Chain 4.45 mg/dL (0.57-2.63)
[2020-01-22 15:23] LABS: Albumin 64.6 % (55.8-66.1); Total Protein 5.8 g/dL (6.3-8.2)
== END 2020-01-21 07:20 ==
LOC: LBN 07:00
PROVIDERS: PCP Family Medicine; Visit Provider Internal Medicine Hematology & Oncology
DX: C90.00 Multiple myeloma not having achieved remission (principal); N18.6 End stage renal disease; Z99.2 Dependence on renal dialysis
CPT/HCPCS: 80053; 82784; 83883; 84165; 85025

== ENCOUNTER 2020-02-11 07:10 | Outpatient (REF) | payer OTHER, SELFPAY ==
[2020-02-11 07:34] LABS: Abs Immature Grans 0.01 k/cumm (0.0-0.09); Absolute Basophil Count 0.02 k/cumm (0.0-0.2); Absolute Eosinophil Count 0.11 k/cumm (0.0-0.7); Absolute Lymphocyte Count 0.91 k/cumm (1.2-3.4); Absolute Monocyte Count 0.46 k/cumm (0.11-0.7); Absolute Neutrophil Count 4.13 k/cumm (1.2-6.7); Basophils % 0.4; HCT 31.7 % (36.0-46.0); HGB 10.4 g/dL (12.0-15.5); Immature Grans % 0.2 %; Lymphocytes % 16.1; Mean Corp. HGB Concentration 32.8 g/dL (32.0-36.0); Mean Corpuscular Hemoglobin 33.3 pg (27.0-33.0); Mean Corpuscular Volume 101.6 fL (80-95); Mean Platelet Volume 10.5 fL (8.0-11.0); Monocytes % 8.2; Neutrophils % 73.1; Platelet Count 163 x1000/uL (130-400); RBC 3.12 m/cumm (4.00-5.20); RBC Distribution Width 13.1 % (11.7-14.6); White Blood Cell Count 5.64 k/cumm (4.4-10.8)
== END 2020-02-11 07:30 ==
LOC: LBN 07:10
PROVIDERS: PCP Family Medicine; Visit Provider Internal Medicine Hematology & Oncology
DX: C90.00 Multiple myeloma not having achieved remission (principal); N18.6 End stage renal disease; Z99.2 Dependence on renal dialysis
CPT/HCPCS: 85025

== ENCOUNTER 2020-03-03 07:00 | Outpatient (REF) | payer OTHER, SELFPAY ==
[2020-03-03 08:06] LABS: ALT 27 U/L (14-59); AST 20 U/L (15-37); Albumin 3.2 g/dL (3.4-5.0); Alkaline Phosphatase 186 U/L (46-116); Anion Gap 10.8 mmol/L (3-11); Bilirubin, Total 0.4 mg/dL (0.2-1.0); CO2 24.2 mmol/L (21.0-32.0); Calcium 8.1 mg/dL (8.5-10.1); Chloride 100 mmol/L (98-107); Glucose 112 mg/dL (74-106); Potassium 4.7 mmol/L (3.5-5.1); Sodium 135 mmol/L (136-145); Total Protein 6.2 g/dL (6.4-8.2)
[2020-03-03 08:09] LABS: BUN 85 mg/dL (7-18); CREATININE 5.05 mg/dL (0.55-1.02)
[2020-03-05 12:44] LABS: Kappa Free Light Chain 10.21 mg/dL (0.33-1.94); Lambda Free Light Chain 4.48 mg/dL (0.57-2.63)
[2020-03-05 14:20] LABS: Albumin 65.4 % (55.8-66.1); Total Protein 5.9 g/dL (6.3-8.2)
[2020-03-05 15:07] LABS: IgA 70 mg/dL (85-499); IgG 539 mg/dL (610-1,616); IgM 189 mg/dL (35-242)
== END 2020-03-03 07:20 ==
LOC: LBN 07:00
PROVIDERS: PCP Family Medicine; Visit Provider Internal Medicine Hematology & Oncology
DX: C90.00 Multiple myeloma not having achieved remission (principal); N18.6 End stage renal disease; Z99.2 Dependence on renal dialysis
CPT/HCPCS: 80053; 82784; 83883; 84165

== ENCOUNTER 2020-03-24 07:10 | Outpatient (REF) | payer OTHER, SELFPAY ==
[2020-03-24 07:21] LABS: Abs Immature Grans 0.01 k/cumm (0.0-0.09); Absolute Basophil Count 0.01 k/cumm (0.0-0.2); Absolute Eosinophil Count 0.07 k/cumm (0.0-0.7); Absolute Lymphocyte Count 0.79 k/cumm (1.2-3.4); Absolute Monocyte Count 0.48 k/cumm (0.11-0.7); Basophils % 0.2; Eosinophils % 1.5; HCT 33.3 % (36.0-46.0); HGB 10.7 g/dL (12.0-15.5); Immature Grans % 0.2 %; Mean Corp. HGB Concentration 32.1 g/dL (32.0-36.0); Mean Corpuscular Hemoglobin 34.3 pg (27.0-33.0); Mean Corpuscular Volume 106.7 fL (80-95); Mean Platelet Volume 10.2 fL (8.0-11.0); Monocytes % 10.3; Neutrophils % 70.8; Platelet Count 146 x1000/uL (130-400); RBC 3.12 m/cumm (4.00-5.20); RBC Distribution Width 15.1 % (11.7-14.6); White Blood Cell Count 4.66 k/cumm (4.4-10.8)
[2020-03-24 07:31] LABS: Macrocytosis 2+; Poikilocytes 1+; Polychromasia Present
== END 2020-03-24 07:30 ==
LOC: LBN 07:10
PROVIDERS: PCP Family Medicine; Visit Provider Internal Medicine Hematology & Oncology
DX: C90.00 Multiple myeloma not having achieved remission (principal); N18.6 End stage renal disease; Z99.2 Dependence on renal dialysis
CPT/HCPCS: 85025

== ENCOUNTER 2020-04-07 06:53 | Outpatient (REF) | payer OTHER, SELFPAY ==
[2020-04-07 07:10] LABS: Abs Immature Grans 0.01 k/cumm (0.0-0.09); Absolute Basophil Count 0.02 k/cumm (0.0-0.2); Absolute Eosinophil Count 0.07 k/cumm (0.0-0.7); Absolute Lymphocyte Count 0.76 k/cumm (1.2-3.4); Absolute Neutrophil Count 3.41 k/cumm (1.2-6.7); Basophils % 0.4; Eosinophils % 1.5; HCT 38.1 % (36.0-46.0); HGB 12.6 g/dL (12.0-15.5); Immature Grans % 0.2 %; Lymphocytes % 16.3; Mean Corp. HGB Concentration 33.1 g/dL (32.0-36.0); Mean Corpuscular Hemoglobin 34.3 pg (27.0-33.0); Mean Corpuscular Volume 103.8 fL (80-95); Mean Platelet Volume 10.7 fL (8.0-11.0); Monocytes % 8.6; Platelet Count 142 x1000/uL (130-400); RBC 3.67 m/cumm (4.00-5.20); RBC Distribution Width 13.8 % (11.7-14.6); White Blood Cell Count 4.67 k/cumm (4.4-10.8)
[2020-04-07 07:18] LABS: ALT 25 U/L (14-59); AST 22 U/L (15-37); Albumin 3.7 g/dL (3.4-5.0); Alkaline Phosphatase 192 U/L (46-116); Anion Gap 8.4 mmol/L (3-11); BUN 60 mg/dL (7-18); Bilirubin, Total 0.5 mg/dL (0.2-1.0); CO2 25.6 mmol/L (21.0-32.0); Calcium 8.1 mg/dL (8.5-10.1); Chloride 100 mmol/L (98-107); Estimated GFR 9.43 (mL/min/1.73m2); Glucose 119 mg/dL (74-106); Potassium 4.7 mmol/L (3.5-5.1); Sodium 134 mmol/L (136-145); Total Protein 6.8 g/dL (6.4-8.2)
[2020-04-07 07:28] LABS: CREATININE 4.52 mg/dL (0.55-1.02)
[2020-04-08 13:30] LABS: Albumin 62.3 % (55.8-66.1); Comment (See Note); Total Protein 6.7 g/dL (6.3-8.2)
[2020-04-09 10:30] LABS: IgA 80 mg/dL (85-499); IgG 601 mg/dL (610-1,616); IgM 228 mg/dL (35-242); Lambda Free Light Chain 4.07 mg/dL (0.57-2.63)
== END 2020-04-07 07:13 ==
LOC: LBN 06:53
PROVIDERS: PCP Family Medicine; Visit Provider Internal Medicine Hematology & Oncology
DX: C90.00 Multiple myeloma not having achieved remission (principal); N18.6 End stage renal disease; Z99.2 Dependence on renal dialysis
CPT/HCPCS: 80053; 82784; 83883; 84165; 85025

== ENCOUNTER 2020-05-19 07:16 | Outpatient (REF) | payer OTHER, SELFPAY ==
[2020-05-19 07:37] LABS: Absolute Basophil Count 0.01 k/cumm (0.0-0.2); Absolute Eosinophil Count 0.09 k/cumm (0.0-0.7); Absolute Lymphocyte Count 0.93 k/cumm (1.2-3.4); Absolute Monocyte Count 0.32 k/cumm (0.11-0.7); Absolute Neutrophil Count 3.42 k/cumm (1.2-6.7); Basophils % 0.2; Eosinophils % 1.9; HCT 31.7 % (36.0-46.0); HGB 10.4 g/dL (12.0-15.5); Lymphocytes % 19.5; Mean Corp. HGB Concentration 32.8 g/dL (32.0-36.0); Mean Corpuscular Hemoglobin 32.9 pg (27.0-33.0); Mean Corpuscular Volume 100.3 fL (80-95); Mean Platelet Volume 11.2 fL (8.0-11.0); Monocytes % 6.7; Neutrophils % 71.7; Platelet Count 109 x1000/uL (130-400); RBC 3.16 m/cumm (4.00-5.20); RBC Distribution Width 12.7 % (11.7-14.6); White Blood Cell Count 4.77 k/cumm (4.4-10.8)
[2020-05-19 07:53] LABS: ALT 31 U/L (14-59); AST 23 U/L (15-37); Albumin 3.6 g/dL (3.4-5.0); Alkaline Phosphatase 158 U/L (46-116); Anion Gap 10.1 mmol/L (3-11); BUN 79 mg/dL (7-18); Bilirubin, Total 0.3 mg/dL (0.2-1.0); CO2 24.9 mmol/L (21.0-32.0); Calcium 8.2 mg/dL (8.5-10.1); Chloride 100 mmol/L (98-107); Estimated GFR 8.37 (mL/min/1.73m2); Glucose 143 mg/dL (74-106); Potassium 5.1 mmol/L (3.5-5.1); Sodium 135 mmol/L (136-145); Total Protein 6.6 g/dL (6.4-8.2)
[2020-05-19 08:15] LABS: CREATININE 5.01 mg/dL (0.55-1.02)
[2020-05-20 10:36] LABS: IgA 85 mg/dL (85-499); IgG 613 mg/dL (610-1,616); IgM 238 mg/dL (35-242); Kappa Free Light Chain 9.43 mg/dL (0.33-1.94); Lambda Free Light Chain 4.44 mg/dL (0.57-2.63)
[2020-05-20 14:26] LABS: Albumin 64.9 % (55.8-66.1); Total Protein 6.1 g/dL (6.3-8.2)
== END 2020-05-19 07:36 ==
LOC: LBN 07:16
PROVIDERS: PCP Family Medicine; Visit Provider Internal Medicine Hematology & Oncology
DX: C90.00 Multiple myeloma not having achieved remission (principal); N18.6 End stage renal disease; Z99.2 Dependence on renal dialysis
CPT/HCPCS: 80053; 82784; 83883; 84165; 85025

== ENCOUNTER 2020-06-30 07:15 | Outpatient (REF) | payer OTHER, SELFPAY ==
[2020-06-30 07:30] LABS: Abs Immature Grans 0.02 10^3/uL (0.0-0.06); Absolute Basophil Count 0.02 10^3/uL (0.0-0.2); Absolute Eosinophil Count 0.09 10^3/uL (0.0-0.7); Absolute Monocyte Count 0.38 10^3/uL (0.1-0.8); Absolute Neutrophil Count 3.53 10^3/uL (1.2-6.7); Basophils % 0.4; Eosinophils % 1.8; HCT 28.8 % (36.0-46.0); HGB 9.5 g/dL (11.2-15.7); Immature Grans % 0.4; Lymphocytes % 18.2; MPV 11.2 fL (8.0-11.0); Monocytes % 7.7; Neutrophils % 71.5; Nucleated RBC 0 %; Platelet Count 107 10^3/uL (130-400); RBC 2.88 10^6/uL (3.93-5.22); RDW 14.4 % (11.7-14.6); RDW-SD 51.9 fL; WBC 4.94 10^3/uL (4.4-10.8)
[2020-06-30 07:38] LABS: ALT 25 U/L (14-59); AST 18 U/L (15-37); Albumin 3.6 g/dL (3.4-5.0); Alkaline Phosphatase 126 U/L (46-116); Anion Gap 12.2 mmol/L (3-11); Bilirubin, Total 0.5 mg/dL (0.2-1.0); CO2 22.8 mmol/L (21.0-32.0); Calcium 8.2 mg/dL (8.5-10.1); Chloride 100 mmol/L (98-107); Estimated GFR 8.04 (mL/min/1.73m2); Glucose 173 mg/dL (74-106); Sodium 135 mmol/L (136-145); Total Protein 6.7 g/dL (6.4-8.2)
[2020-06-30 08:06] LABS: BUN 80 mg/dL (7-18); CREATININE 5.19 mg/dL (0.55-1.02)
[2020-07-01 10:24] LABS: IgA 84 mg/dL (85-499); IgG 650 mg/dL (610-1,616); IgM 237 mg/dL (35-242); Kappa Free Light Chain 10.17 mg/dL (0.33-1.94); Lambda Free Light Chain 4.61 mg/dL (0.57-2.63)
[2020-07-01 12:34] LABS: Albumin 66.4 % (55.8-66.1); Total Protein 6.1 g/dL (6.3-8.2)
== END 2020-06-30 07:35 ==
LOC: LBN 07:15
PROVIDERS: PCP Family Medicine; Visit Provider Internal Medicine Hematology & Oncology
DX: C90.00 Multiple myeloma not having achieved remission (principal)
CPT/HCPCS: 80053; 82784; 83883; 84165; 85025

== ENCOUNTER 2020-08-11 07:54 | Outpatient (REF) | payer OTHER, SELFPAY ==
[2020-08-11 08:23] LABS: Abs Immature Grans 0.01 10^3/uL (0.0-0.06); Absolute Basophil Count 0.02 10^3/uL (0.0-0.2); Absolute Eosinophil Count 0.09 10^3/uL (0.0-0.7); Absolute Lymphocyte Count 0.91 10^3/uL (1.2-3.4); Absolute Monocyte Count 0.29 10^3/uL (0.1-0.8); Absolute Neutrophil Count 2.89 10^3/uL (1.2-6.7); Basophils % 0.5; Eosinophils % 2.1; HCT 35.2 % (36.0-46.0); HGB 11.6 g/dL (11.2-15.7); Immature Grans % 0.2; Lymphocytes % 21.6; MCH 34.6 pg (27.0-33.0); MCV 105.1 fL (80-95); Monocytes % 6.9; Neutrophils % 68.7; Nucleated RBC 0 %; Platelet Count 127 10^3/uL (130-400); RBC 3.35 10^6/uL (3.93-5.22); RDW 13.4 % (11.7-14.6); RDW-SD 51.9 fL; WBC 4.21 10^3/uL (4.4-10.8)
[2020-08-11 08:40] LABS: Diff Comment RBC Morph Reviewed; Macrocytosis 2+
[2020-08-11 08:42] LABS: ALT 30 U/L (14-59); AST 23 U/L (15-37); Albumin 3.5 g/dL (3.4-5.0); Alkaline Phosphatase 113 U/L (46-116); Bilirubin, Total 0.5 mg/dL (0.2-1.0); Calcium 8.3 mg/dL (8.5-10.1); Chloride 99 mmol/L (98-107); Estimated GFR 7.14 (mL/min/1.73m2); Glucose 150 mg/dL (74-106); Sodium 134 mmol/L (136-145); Total Protein 6.5 g/dL (6.4-8.2)
[2020-08-11 08:49] LABS: BUN 85 mg/dL (7-18); CREATININE 5.75 mg/dL (0.55-1.02)
[2020-08-12 11:06] LABS: IgA 83 mg/dL (85-499); IgG 669 mg/dL (610-1,616); IgM 257 mg/dL (35-242); Lambda Free Light Chain 4.49 mg/dL (0.57-2.63)
[2020-08-12 13:29] LABS: Albumin 66.6 % (55.8-66.1); Total Protein 6.1 g/dL (6.3-8.2)
== END 2020-08-11 08:14 ==
LOC: LBN 07:54
PROVIDERS: PCP Family Medicine; Visit Provider Internal Medicine Hematology & Oncology
DX: C90.00 Multiple myeloma not having achieved remission (principal)
CPT/HCPCS: 80053; 82784; 83883; 84165; 85025

== ENCOUNTER 2020-09-22 06:45 | Outpatient (REF) | payer OTHER, SELFPAY ==
[2020-09-22 08:07] LABS: Abs Immature Grans 0.02 10^3/uL (0.0-0.06); Absolute Basophil Count 0.03 10^3/uL (0.0-0.2); Absolute Eosinophil Count 0.11 10^3/uL (0.0-0.7); Absolute Lymphocyte Count 0.75 10^3/uL (1.2-3.4); Absolute Monocyte Count 0.36 10^3/uL (0.1-0.8); Basophils % 0.6; Eosinophils % 2.2; HCT 33.7 % (36.0-46.0); HGB 11.1 g/dL (11.2-15.7); Immature Grans % 0.4; Lymphocytes % 14.8; MCH 33.9 pg (27.0-33.0); MCHC 32.9 % (32.0-36.0); MCV 103.1 fL (80-95); MPV 11.2 fL (8.0-11.0); Monocytes % 7.1; Neutrophils % 74.9; Nucleated RBC 0 %; Platelet Count 123 10^3/uL (130-400); RBC 3.27 10^6/uL (3.93-5.22); RDW 13.1 % (11.7-14.6); RDW-SD 49.6 fL; WBC 5.07 10^3/uL (4.4-10.8)
[2020-09-22 08:17] LABS: ALT 32 U/L (14-59); AST 25 U/L (15-37); Albumin 3.6 g/dL (3.4-5.0); Alkaline Phosphatase 115 U/L (46-116); Anion Gap 10.2 mmol/L (3-11); Bilirubin, Total 0.3 mg/dL (0.2-1.0); CO2 24.8 mmol/L (21.0-32.0); Calcium 7.8 mg/dL (8.5-10.1); Chloride 102 mmol/L (98-107); Estimated GFR 7.23 (mL/min/1.73m2); Glucose 150 mg/dL (74-106); Potassium 5.2 mmol/L (3.5-5.1); Sodium 137 mmol/L (136-145); Total Protein 6.3 g/dL (6.4-8.2)
[2020-09-22 08:24] LABS: BUN 86 mg/dL (7-18); CREATININE 5.69 mg/dL (0.55-1.02)
[2020-09-30 17:11] LABS: Albumin 3.4 g/dL (3.4-4.7); IgA 78 mg/dL (61-356); IgG 632 mg/dL (767-1590); Kappa Free Light Chain 19.7 mg/dL (0.33-1.94); Lambda Free Light Chain 5.11 mg/dL (0.57-2.63)
[2020-09-30 17:12] LABS: IgM 225 mg/dL (37-286)
[2020-09-30 17:13] LABS: Comment See Comments
== END 2020-09-22 07:05 ==
LOC: LBN 06:45
PROVIDERS: PCP Family Medicine; Visit Provider Internal Medicine Hematology & Oncology
DX: C90.00 Multiple myeloma not having achieved remission (principal)
CPT/HCPCS: 80053; 82784; 83883; 84165; 85025

== ENCOUNTER 2020-11-06 06:21 | Outpatient (REF) | payer OTHER, SELFPAY ==
--- OUTSIDE RECORDS SUMMARY | 2020-11-06 06:24 | XMS_ITS | Encounter Summary ---
:1940 Author Care Team Providers Name Role Phone Truong Breaux MD Primary Care Provider [phone] Reason for Visit Hypertensive disorder Assessment and Plan 1. Hypertensive disorder controlled. meds as in place 2. End-stage renal disease continue dialysis. twice weekl y, good/improved energy level 3. Multiple myeloma ongoing care by onc. in remiss ion 4. Paroxysmal atrial fibrillatio n rate controlled. Discussion Note: None recorded.Patient educational handouts: No information available. Plan of Care Reminders Provider Appointments Follow up 02/25/2021 Truong Breaux MD 20 1:40PM Lab None ? ? recorded. Referral None ? ? recorded. Procedures None ? ? recorded. Surgeries None ? ? recorded. Imaging None ? ? recorded. Medications Name Start Date ? ? accu-chek kit bk pl ? accu-chek fermin bk pl ? acyclovir 200 mg capsule ? Take 1 capsule twice a day by oral route for 30 days. BLOOD GLUCOSE TEST STRIPS ? 1 strip BID carvedilol 25 mg tablet ? Take 1 tablet twice a day by oral route for 90 days. cholecalciferol (vitamin D3) ? Take 1000 untis daily easy comfort mis 30g ? easy mini mis eject ? Eliquis 2.5 mg tablet ? Take 1 tablet twice a day by oral route for 90 days. lanthanum 500 mg chewable tablet ? CHEW AND SWALLOW 2 TABLETS THREE TIMES A DAY WITH VERITO LS lisinopril 40 mg tablet ? TAKE ONE TABLET BY MOUTH TWICE A DAY ProAir HFA 90 mcg/actuation aerosol inhaler ? simvastatin 20 mg tablet ? TAKE ONE TABLET BY MOUTH AT BEDTIME Triphrocaps 1 mg capsule ? TAKE ONE CAPSULE BY MOUTH EVERY DAY Velcade ? 1mg/m2 sub q Day 1 and 22 on 6 week cycle Medications Administered None recorded. Vitals Height Weight BMI Blood Pressure 5 ft 1 in 121 lbs 7 oz 22.9 kg/m2 110/70 mm[Hg] Results Lab Results None recorded. Allergies Code Code System Name Reaction Severity Onset 2230 RxNorm Cephalexin Rash Moderate to 09/07/2018 Severe Problems Name Status Onset Date Source ? Multiple Myeloma Active ? History Type 2 Diabetes Mellitus without Complication Active ? History Severe Protein-calorie Malnutrition (Perez: Less Active ? History than 60% of Standard Weight) Mone Type IIa Hyperlipoproteinemia Active ? History Hyperkalemia Active ? History Anemia Active ? History Hypertensive Disorder Active ? History Paroxysmal Atrial Fibrillation Active ? H istory Constipation Active ? History End-stage Renal Disease Active ? History Pyogenic Bacterial Arthritis Active ? His tory Procedures Date Name Performed by ? 09/14/1986 Hysterectomy Information not avai lable 11/14/1985 Appendectomy Information not avai lable Vaccine List Vaccine Type influenza, injectable, quadrivalent 08/01/2020 pneumococcal conjugate PCV 13 07/06/2018?0.5 mL pneumococcal polysaccharide PPV23 09/07/2018?0.5 mL Tdap 03/19/2019?0.5 mL Social History Tobacco Smoking Status Never Smoker Alcohol intake Occasional Live alone or with others? with others Animal exposure? N Hand Dominance Bilateral Are you currently employed? N Blind or serious difficulty seeing N Language Difficulties No Chewing tobacco none Passive smoke exposure? N Most Recent Tobacco Use Screening 03/19/2019 Hard of hearing or deaf in one or both ears? N Caffeine intake None Drug Use N Exercise level Moderate Family History Relation Problem Onset Age of Age Notes Mother Heart disease (No N/A Questionable Information) Functional Status No Impairment. Past Encounters 09/08/2020 Hypertensive Disorder; End-stage Renal D isease; Multiple Myeloma; Paroxysmal Atrial Fibrillation Truong Breaux MD: [address] [place] [phone], Ph. History of Present Illness ? Hypertension F/U Reported By: Patient HPI: Medications: taking medicati ons as directed, no side effects from medication, checks blood pre ssure at home, range:. Lifestyle: limiting/avoiding salt, comp liant with low salt diet, not exercising regularly; Tries to walk whe n has a chance. Associated Symptoms: no chest pain, no shortness of breath, dizziness; Pt. states I do have dizziness when I am at dialy sis towards the end of my treatment. Note: <p>Pt. states I am doing well and feel great. I have a good appetite and feel like eating food now. dialysis twice weekly, no issues noted. has not seen onc in some time. no palpitations,no sob. tolerating meds without difficulty</p> Review of Systems ? Notes: <p>more energy, walking. no fever. sleeping well</p><p>no sob, no cough,</p><p>no cp no pal pitations</p><p>no gi upset</p><p>improved appetite</p><p>no joint pain </p><p>no rash</p> Physical Exam ? Brief PE Reported By: Patient General: General Appearance: healthy- appearing, well-nourished, well-develop ed. Level of Distress: NAD Eyes, Ears, Nose, Mouth, Throat: Eyes PERRLA, extraocu lar movements intact, non-injected, no discharge, no pallor. Ears: no lesions on external right ea r, no lesions on external left ear. Lips, Tyler th, and Gums: no mouth or lip ulcers, no bleeding g ums, normal dentition. Oropharynx: moist mucous mem branes, no erythema, no exudates, tonsils not enlarg ed. Nose: no lesions on external nose, nares patent, no septal deviation, no sinus tenderness, no nasal d ischarge Neck: Neck: supple, trachea midlin e, FROM, no thyroid enlargement, no lymphadenopa thy Cardiovascular: Heart Auscultation: RRR, nor mal S1, normal S2, no murmurs, no rubs, no gallops . Neck vessels: no carotid bruits. Pulses: norm al throughout. Extremities: no edema Lungs: Auscultation: clear, no whee zing, no rales/crackles, no rhonchi Abdomen: Bowel Sounds: normal. Inspec tion and Palpation: soft, non-distended, non-ten bean, no rebound tenderness, no guarding, no masses, no CVA tenderness Neurological: Orientation: to time, to benjamín ce, to person. Motor Strength and Tone: normal mo tor strength, normal tone. Sensation normal sensa tion. Reflexes normal reflexes Musculoskeletal: Joints, Bones, and Muscles: normal movement of all extremities, no contractures , no crepitus, no bony abnormalities, no malalignme nt, no tenderness, no joint erythema, no joint jeff ma, no petechiae, no cyanosis, no clubbing. Thora columbar Appearance: normal curvature Skin: Inspection and palpation: wa rm and dry, no lesions, good turgor Psychiatric: Affect appropriate
--- OUTSIDE RECORDS SUMMARY | 2020-11-06 06:24 | XMS_ITS ---
:1940 Author Care Team Providers Name Role Phone EUGENIA BREAUX MD Primary Care Provider [phone] Allergies Code Code System Name Reaction Severity Status Onset 2230 RxNorm Cephalexin Rash Moderate to Active 018 Severe Medications Name Status Start Date Stop Date ? ? accu-chek kit bk pl Active ? Not av ailable accu-chek fermin bk pl Active ? Not av ailable acyclovir 200 mg caps Completed ? 0 acyclovir 200 mg capsule Active ? Not kathleen ilable acyclovir 400 mg tablet Completed ? 05/16/20 19 aspirin 325 mg tablet,delayed release Completed 04/13/2017 07/26/2017 1 (one) Tablet Tablet: daily aspirin 81 mg tablet,delayed release Completed 04/13/2017 04/13/[address]: qd - daily B-complex with vitamin C tablet Completed 02/13/2018 02/14/2018 1 (one) Tablet: daily Benadryl 25 mg capsule Completed ? 8 Take 2 capsules every day by oral route as directed. BLOOD GLUCOSE TEST STRIPS Active ? Not av ailable 1 strip BID Boostrix Tdap 2.5 Lf unit-8 Completed ? 03/2019 mcg-5 Lf/0.5 mL intramuscular syringe calcium carbonate 200 mg calcium (500 mg) chewable tablet Comple melissa 05/16/2017 06/15/2017 2 (two) Tablet Tablet: two times a day carvedilol 12.5 mg tablet Active ? Not av ailable carvedilol 25 mg tablet Active ? Not avai lable cholecalciferol (vitamin D3) Active ? Not available Take 1000 untis daily ciprofloxacin 750 mg tablet Completed 07/26/201704/2017 1 (one) Tablet Tablet: every morning for 24 days clindamycin HCl 300 mg capsule Completed ? 0 01/17/2019 dexamethasone 4 mg tablet Completed ? 2017 dexamethasone sodium phosphate 4 mg/mL injection solution Comple melissa 04/13/2017 07/26/2017 20 Milligram Milligram: on Mondays with Velcade in clinic doxycycline hyclate 100 mg Completed ? 03/19 capsule doxycycline hyclate 100 mg Active ? Not a vailable tablet easy comfort mis 30g Active ? Not availab le easy mini mis eject Active ? Not avail able eliquis 2.5 mg tabs Completed ? 04/30/2020 Eliquis 2.5 mg tablet Active ? Not availa ble fluocinonide 0.05 % topical cream Completed 09/20/2012 10/05/2012 1 Cream: bid - twice daily for 2 weeks maxiumum fluocinonide 0.05 % topical Completed ? 12/15 solution Glucosamine-Chondroitin Complex capsule Completed 09/26/20 14 09/29/2015 one Capsule: weekly Keflex 250 mg capsule Completed ? 03/19/2019 Take 1 capsule twice a day by oral route. lanthanum 500 mg chewable tablet Active ? Not available CHEW AND SWALLOW 2 TABLETS THREE TIMES A DAY WITH MEALS Lasix 20 mg tablet Completed 03/29/2016 11/18/2016 1 (one) Tablet Tablet: daily prn Lasix 40 mg tablet Completed 05/16/2017 06/15/2017 1 (one) Tablet Tablet: daily levofloxacin 250 mg tablet Completed ? 03/19 lisinopril 20 mg tabs Completed ? 0 lisinopril 20 mg tablet Completed ? 09/08/20 20 lisinopril 40 mg tablet Active ? Not avai lable TAKE ONE TABLET BY MOUTH TWICE A DAY metoprolol succinate er 50 mg Completed ? 0 04/30/2020 tb24 metoprolol succinate ER 100 mg Completed ? 0 03/19/2019 tablet,extended release 24 hr metoprolol succinate ER 200 mg tablet,extended release 24 hr Com pleted ? 09/07/2018 Take 1 tablet every day by oral route. metoprolol succinate ER 50 mg Completed ? tablet,extended release 24 hr metoprolol tartrate 50 mg tablet Completed 04/15/2017 07/26/2017 1 (one) Tablet: bid - twice daily mupirocin 2 % topical ointment Completed 09/21/2012 1 11/28/2011 1 application(s): 3 times per day for impetigo for 7 days mupirocin calcium 2 % topical Completed ? cream Nephrocaps Completed ? 03/19/2019 Take 1 capsule daily amlodipine 5 mg tablet Active ? Not avail able nystatin 100,000 unit/gram topical cream Completed 013 09/26/2014 1 Cream Cream: apply to affected area tid oseltamivir 30 mg capsule Completed ? 2017 oxycodone 5 mg tablet Completed ? 03/19/2019 prednisone 20 mg tablet Completed ? 03/19/20 19 prednisone 5 mg tablet Active ? Not avail able ProAir HFA 90 mcg/actuation Active ? Not available aerosol inhaler Padmini-Yennifer 0.8 mg tablet Completed ? 07/06/20 18 Revlimid 2.5 mg capsule Completed ? 07/06/20 18 Revlimid 5 mg capsule Completed ? 07/06/2018 Senna Plus 8.6 mg-50 mg tablet Completed 07/26/2017 0 02/13/2018 2 (two) Tablet Tablet: bid - twice daily as needed for constip ation sevelamer carbonate 800 mg tabs Completed ? 04/30/2020 sevelamer carbonate 800 mg Completed ? 09/08 tablet simvastatin 20 mg tabs Completed ? 04/30/20 20 simvastatin 20 mg tablet Active ? Not kathleen ilable TAKE ONE TABLET BY MOUTH AT BEDTIME triamcinolone acetonide 0.1 % Completed ? topical cream Triphrocaps 1 mg capsule Active ? Not kathleen ilable TAKE ONE CAPSULE BY MOUTH EVERY DAY Velcade Active ? Not available 1mg/m2 sub q Day 1 and 22 on 6 week cycle warfarin 5 mg tablet Completed 08/08/2017 08/08/2017 1 (one) Tablet: daily Problems Name Status Onset Date Source ? Multiple Myeloma Active ? History Type 2 Diabetes Mellitus without Complication Active ? History Severe Protein-calorie Malnutrition (Perez: Less Active ? History than 60% of Standard Weight) Mone Type IIa Hyperlipoproteinemia Active ? History Hyperkalemia Active ? History Anemia Active ? History Hypertensive Disorder Active ? History Paroxysmal Atrial Fibrillation Active ? H istory Pneumonia Due to Respiratory Syncytial Virus Unknown ? History Pneumonia Unknown ? History Acute Respiratory Failure Unknown ? Histor y Constipation Active ? History End-stage Renal Disease Active ? History General Symptom Unknown ? History Elevated Blood-pressure Reading without Diagnosis Unknown ? History of Hypertension Adult Health Examination Unknown ? History Pyogenic Bacterial Arthritis Active ? His tory Disorder of Soft Tissue Unknown ? History Procedure by Method Unknown ? History Procedures Date Name Performed by ? 09/14/1986 Hysterectomy Information not avai lable 11/14/1985 Appendectomy Information not avai lable 10/30/2018 XR, Shoulder, 2 or More View [facility] (Internal) [address], [place] [id number] (Work Place) 11/17/2018 XR, Shoulder, 2 or More View [facility] (Internal) [address], [place] [id number] (Work Place) 12/18/2018 XR, Shoulder, 2 or More View [facility] (Internal) [address], [place] [id number] (Work Place) 01/22/2019 XR, Shoulder, 2 or More View [facility] (Internal) [address], [place] [phone] (Work Place) 04/23/2019 XR, Shoulder, 2 or More View [facility] (Internal) [address], [place] [id number] (Work Place) Results Lab Results Date Name Specimen Result Interpretation Description Value Range Status Address ? 07/20/2019 HbA1C BLD - Ha1C <5.0 % 4.0-6.0 % Final [facility] (Hemoglobin Count ry a1C), Blood [facility] Lab (Internal) : [address] 07/13/2019 CBC W/ Auto Diff BLD - Wbc 6.0 5.0-10.0 F inal [place] 10*3/uL 10*3/uL [facility] L ab (Internal) : [address] ? ? BLD Low Rbc 3.72 4.10-5.30 Final [place] 10*6/uL 10*6/uL [facility] L ab (Internal) : [address] ? ? BLD - Hgb 12.9 g/dL 12.0-16.0 Final Nort h g/dL [facility] L ab (Internal) : [address] ? ? BLD - Hct 37.9 % 37.0-47.0 Final [facility] L ab (Internal) : [address] ? ? BLD High Mcv 101.9 fL 80.0-96.0 Final [facility] Hospital L ab (Internal) : [address] ? ? BLD High Mch 34.7 pg 26.0-32.0 Final [facility] L ab (Internal) : [address] ? ? BLD - Mchc 34.0 g/dL 31.0-35.0 Final Nort h g/dL [facility] Hospital L ab (Internal) : [address] ? ? BLD - Rdw 13.0 % 11.5-14.5 Final [facility] L ab (Internal) : [address] ? ? BLD - Plt 136 130-450 Final [place] 10*3/uL 10*3/uL [facility] L ab (Internal) : [address] ? ? BLD - Anc 4.65 ? Final [place] 10*3/uL [facility] Hospital L ab (Internal) : [address] ? ? BLD High Neutro 78.0 % 40.0-75.0 Final [facility] L ab (Internal) : [address] ? ? BLD Low Lymph 13.3 % 20.0-50.0 Final [facility] L ab (Internal) : [address] ? ? BLD - [place] 7.2 % 2.0-10.0 Final [facility] L ab (Internal) : [address] ? ? BLD Low Eos 0.7 % 1.0-6.0 % Final [facility] L ab (Internal) : [address] ? ? BLD - Baso 0.5 % 0.0-1.0 % Final [facility] L ab (Internal) : [address] ? ? BLD - Ig 0.3 % 0.0-0.9 % Final [facility] L ab (Internal) : [address] t 07/13/2019 CMP, Serum or S - g/r 99 mg/dL 74-106 Kina l [place] Plasma mg/dL [facility] L ab (Internal) : [address] ? ? S High Bun 19 mg/dL 7-17 Final [facility] mg/dL [facility] ([facility] : [address] ? ? S High Crea 1.70 0.52-1.04 Final [place] mg/dL mg/dL [facility] L [facility] (Internal) : [address] ? ? S - Ca 9.3 mg/dL 8.4-10.2 Final [place] mg/dL [facility] L [facility] (Internal) : [address] ? ? S Low Na 135 137-145 Final [place] mmol/L mmol/L [facility] L [facility] (Internal) : [address] ? ? S - K 4.2 3.5-5.1 Final [place] mmol/L mmol/L [facility] L [facility] (Internal) : [address] ? ? S Low Cl 97 mmol/L 98-107 Final [place] mmol/L [facility] L [facility] (Internal) : [address] ? ? S - Tco2 27.0 22.0-30.0 Final [place] mmol/L mmol/L [facility] L ab (Internal) : [address] ? ? S - Tp 7.2 g/dL 6.3-8.2 Final [place] g/dL [facility] L [facility] (Internal) : [address] ? ? S - Alb 4.4 g/dL 3.5-5.0 Final [place] g/dL [facility] (Internal) : [address] ? ? S - Tbil 0.7 mg/dL 0.2-1.3 Final [place] mg/dL [facility] L [facility] (Internal) : [address] ? ? S High Alp 232 U/L 38-126 Final [place] U/L [facility] (Internal) : [address] ? ? S - Alt 32 U/L 9-52 U/L Final [place] (Sgpt) [facility] L ab (Internal) : [address] ? ? S High Ast 51 U/L 14-36 U/L Final [place] (Sgot) [facility] Hospital L ab (Internal) : [address] [facility] 07/13/2019 Uric Acid, Serum S Low Urca 1.5 mg/dL 2.5-6.2 Final [place] or Plasma mg/dL [facility] Hospital L ab (Internal) : [address] [facility] 07/13/2019 CRP, High S - Rcrp 0.17 0.10-0.30 Final [place] Sensitivity, mg/dL mg/dL Coun try Serum or Plasma H ospital Lab (Internal) : [address] [facility] 07/13/2019 RBC Morphology, BLD - Macro small ? Kina l [facility] Hospital L ab (Internal) : [address] [facility] ? ? BLD - Stomat occasiona ? [facility] L ab (Internal) : [address] [facility] 02/09/2018 Venipuncture BLD ? Venpn* ? ? Final [facility] L ab (Internal) : [address] [facility] 02/09/2018 Culture, Blood BLD ? Final microbiol ? Fi [facility] results Hospital Lab (Internal) : [address] [facility] 02/09/2018 Culture, Blood BLD ? Final microbiol ? Fi [facility] results Hospital Lab (Internal) : [address] [facility] 02/09/2018 CRP, High S High Rcrp 1.21 0.10-0.30 Final [place] Sensitivity, mg/dL mg/dL Coun try Serum or Plasma H ospital Lab (Internal) : [address] [facility] 02/09/2018 Lactic Acid, S ? La 1.5 0.7-2.1 Final [place] Blood mmol/L mmol/L [facility] Hospital L ab (Internal) : [address] [facility] 02/09/2018 Neutrophil BLD ? Anc-manu 2.11 ? [facility] Count, Absolute al 10*3/uL [facility] (Anc), Blood Hosp ital Lab (Internal) : [address] [facility] 02/09/2018 Differential, BLD ? Polys 52 % 40-75 % Final [facility], Blood [facility] Hospital L ab (Internal) : [address] [facility] t ? ? BLD ? Bands 1 % 0-5 % Final [facility] (Internal) : [address] ? ? BLD ? Lymphs 24 % 20-50 % Final [facility] L ab (Internal) : [address] ? ? BLD High [place] 11 % 2-10 % Final [facility] L ab (Internal) : [address] ? ? BLD ? Eos 2 % 0-6 % Final [facility] L ab (Internal) : [address] ? ? BLD High Baso 3 % 0-1 % Final [facility] L ab (Internal) : [address] ? ? BLD ? Atyp 7 % ? Final [facility] L ab (Internal) : [address] ? ? BLD ? Plts, adequate adequate Final [facility] L ab (Internal) : [address] ? ? BLD ABNORMA RBC abnormal normal Final [facility] Morpholog [facility] L ab (Internal) : [address] ? ? BLD ? Macro large ? Final [facility] L ab (Internal) : [address] ? ? BLD ? Poik occasiona ? Final [facility] [hpf] [facility] Hospital L ab (Internal) : [address] 02/09/2018 CMP, Serum or S High g/r 123 mg/dL 74-106 Fin al [place] Plasma mg/dL [facility] Hospital L ab (Internal) : [address] ? ? S High Bun 42 mg/dL 7-17 Final [place] mg/dL [facility] Hospital L ab (Internal) : [address] ? ? S High Crea 2.80 0.52-1.04 Final [place] mg/dL mg/dL [facility] Hospital L ab (Internal) : [address] ? ? S ? Ca 9.1 mg/dL 8.4-10.2 Final [place] mg/dL [facility] Hospital L ab (Internal) : [address] ? ? S Low Na 136 137-145 Final [place] mmol/L mmol/L [facility] Hospital L ab (Internal) : [address] ? ? S ? K 3.6 3.5-5.1 Final [place] mmol/L mmol/L [facility] L ab (Internal) : [address] ? ? S Low Cl 94 mmol/L 98-107 Final [place] mmol/L [facility] L ab (Internal) : [address] ? ? S High Tco2 32.0 22.0-30.0 Final [place] mmol/L mmol/L [facility] Hospital L ab (Internal) : [address] ? ? S ? Tp 6.8 g/dL 6.3-8.2 Final [place] g/dL [facility] L ab (Internal) : [address] ? ? S ? Alb 3.8 g/dL 3.5-5.0 Final [place] g/dL [facility] Hospital L ab (Internal) : [address] ? ? S ? Tbil 0.5 mg/dL 0.2-1.3 Final [place] mg/dL [facility] L ab (Internal) : [address] ? ? S High Alp 318 U/L 38-126 Final [place] U/L [facility] L ab (Internal) : [address] ? ? S High Alt 103 U/L 9-52 U/L Final [place] (Sgpt) [facility] L ab (Internal) : [address] ? ? S High Ast 69 U/L 14-36 U/L Final [place] (Sgot) [facility] L ab (Internal) : [address] 02/09/2018 Troponin I, S ? Trop <0.06 0.00-0.06 Final [place] Serum or Plasma NG/mL [facility] [address] 02/09/2018 Partial BLD ? APTT 23 s 22-35 s Final Nort h Thromboplastin (Op) Co [facility] Hospital L ab (Internal) : [address] 02/09/2018 Prothrombin Time BLD ? Pt 10.5 S 9.1-11.7 F inal [facility] L ab (Internal) : [address] ? ? BLD ? Inr 1.0 ? Final [facility] L ab (Internal) : [address] 02/09/2018 Magnesium, QN, S ? mg 2.1 mg/dL 1.6-2.3 [place] Serum or Plasma mg/dL [facility] L ab (Internal) : [address] 02/09/2018 CK (Creatine S ? Cpk 35 U/L 30-135 Final [place] Kinase), Total, U/L [facility] L ab (Internal) : [address] 02/09/2018 CBC W/ Auto Diff BLD Low Wbc 4.0 5.0-10.0 F inal [place] 10*3/uL 10*3/uL [facility] Hospital L ab (Internal) : [address] ? ? BLD Low Rbc 3.15 4.10-5.30 Final [place] 10*6/uL 10*6/uL [facility] Hospital L ab (Internal) : [address] ? ? BLD Low Hgb 10.6 g/dL 12.0-16.0 Final Nort h g/dL [facility] Hospital L ab (Internal) : [address] ? ? BLD Low Hct 34.1 % 37.0-47.0 Final [facility] L ab (Internal) : [address] ? ? BLD High Mcv 108.3 fL 80.0-96.0 Final [facility] L ab (Internal) : [address] ? ? BLD High Mch 33.7 pg 26.0-32.0 Final [facility] L ab (Internal) : [address] ? ? BLD ? Mchc 31.1 g/dL 31.0-35.0 Final Nort h g/dL [facility] Hospital L ab (Internal) : [address] ? ? BLD High Rdw 14.6 % 11.5-14.5 Final [facility] L ab (Internal) : [address] ? ? BLD ? Plt 138 130-450 Final [place] 10*3/uL 10*3/uL [facility] Hospital L ab (Internal) : [address] 06/24/2017 Venipuncture BLD ? Venpn* ? ? Final [facility] Hospital L ab (Internal) : [address] 06/24/2017 Neutrophil BLD ? Anc-manu 18.30 ? Final [place] Count, Absolute al 10*3/uL [facility] (Anc), Blood Hosp ital Lab (Internal) : [address] 06/24/2017 Differential, BLD High Polys 96 % 40-75 % Final [facility], Blood [facility] Hospital L ab (Internal) : [address] ? ? BLD ? Bands 0 % 0-5 % Final [facility] Hospital L ab (Internal) : [address] ? ? BLD Low Lymphs 1 % 20-50 % Final [facility] Hospital L ab (Internal) : [address] ? ? BLD ? [place] 3 % 2-10 % Final [facility] L ab (Internal) : [address] ? ? BLD ? Eos 0 % 0-6 % Final [facility] L ab (Internal) : [address] ? ? BLD ? Baso 0 % 0-1 % Final [facility] L ab (Internal) : [address] ? ? BLD ? Atyp 0 % ? Final [facility] L ab (Internal) : [address] ? ? BLD ? Plts, adequate adequate Final [facility] Hospital L ab (Internal) : [address] ? ? BLD ABNORMA RBC abnormal normal Final [facility] Morpholog [facility] L ab (Internal) : [address] ? ? BLD ? Aniso small ? Final [facility] Hospital L ab (Internal) : [address] ? ? BLD ? Hector small ? Final [facility] Hospital L ab (Internal) : [address] ? ? BLD ? Poik small ? Final [place] [[facility]] [facility] Hospital L ab (Internal) : [address] ? ? BLD ? Oval small ? Final [facility] Hospital L ab (Internal) : [address] 06/24/2017 CBC W/ Auto Diff BLD High Wbc 19.1 5.0-10.0 F inal [place] 10*3/uL 10*3/uL [facility] Hospital L ab (Internal) : [address] ? ? BLD Low Rbc 2.62 4.10-5.30 Final [place] 10*6/uL 10*6/uL [facility] Hospital L ab (Internal) : [address] ? ? BLD Low Hgb 8.0 g/dL 12.0-16.0 Final [place] g/dL [facility] L ab (Internal) : [address] ? ? BLD Low Hct 24.8 % 37.0-47.0 Final [facility] L ab (Internal) : [address] ? ? BLD ? Mcv 94.7 fL 80.0-96.0 Final [place] fL [facility] L ab (Internal) : [address] ? ? BLD ? Mch 30.5 pg 26.0-32.0 Final [place] pg [facility] L ab (Internal) : [address] ? ? BLD ? Mchc 32.3 g/dL 31.0-35.0 Final Nort h g/dL [facility] L ab (Internal) : [address] ? ? BLD High Rdw 18.6 % 11.5-14.5 Final [facility] L ab (Internal) : [address] ? ? BLD ? Plt 149 130-450 Final [place] 10*3/uL 10*3/uL [facility] Hospital L ab (Internal) : [address] t 06/24/2017 CMP, Serum or S ? g/r 76 mg/dL 74-106 Kina l [place] Plasma mg/dL [facility] Hospital L ab (Internal) : [address] ? ? S High Bun 171 mg/dL 7-17 Final [place] mg/dL [facility] L ab (Internal) : [address] ? ? S High Crea 4.80 0.52-1.04 Final [place] mg/dL mg/dL [facility] L ab (Internal) : [address] ? ? S Low Ca 7.9 mg/dL 8.4-10.2 Final [place] mg/dL [facility] Hospital L ab (Internal) : [address] ? ? S ? Na 142 137-145 Final [place] mmol/L mmol/L [facility] Hospital L ab (Internal) : [address] ? ? S CRITICA K 6.7 3.5-5.1 Final [place] L HIGH mmol/L mmol/L [facility] Hospital L ab (Internal) : [address] ? ? S High Cl 117 98-107 Final [place] mmol/L mmol/L [facility] L ab (Internal) : [address] ? ? S CRITICA Tco2 11.0 22.0-30.0 Final [place] L LOW mmol/L mmol/L [facility] Hospital L ab (Internal) : [address] ? ? S Low Tp 5.8 g/dL 6.3-8.2 Final [place] g/dL [facility] L ab (Internal) : [address] ? ? S Low Alb 3.1 g/dL 3.5-5.0 Final [place] g/dL [facility] L ab (Internal) : [address] ? ? S ? Tbil 0.6 mg/dL 0.2-1.3 Final [place] mg/dL [facility] L ab (Internal) : [address] ? ? S High Alp 181 U/L 38-126 Final [place] U/L [facility] L ab (Internal) : [address] ? ? S ? Alt 46 U/L 9-52 U/L Final [place] (Sgpt) [facility] L ab (Internal) : [address] ? ? S ? Ast 20 U/L 14-36 U/L Final [place] (Sgot) [facility] L ab (Internal) : [address] 06/20/2017 Venipuncture BLD ? Venpn* ? ? Final [facility] L ab (Internal) : [address] 06/20/2017 Type + Screen, BLD ? Abo A ? Final [place] Blood [facility] L ab (Internal) : [address] ? ? BLD ? Rh positive ? Final [facility] Hospital L ab (Internal) : [address] ? ? BLD ? Ab Scrn negative negative Final Nort h [facility] Hospital L ab (Internal) : [address] 06/20/2017 Crossmatch, Lrc, BLD ? X-match, complete ? Final [place] # 1 U [facility] L ab (Internal) : [address] 06/20/2017 Immunoglobulin S High Eugenio Saenz 5.53 0.3300-1. Fi nal [place] Light Chains, Free mg/dL 94 mg/dL C ountry Eugenio Saenz, Free, Light Hosp ital Lab Quantitative, Chain, S ( Internal): Serum [address] ? ? S High Lambda 2.90 0.5700-2. Final [place] Free mg/dL 63 mg/dL [facility] ab Chain, S (Interna l): [address] ? ? S High Eugenio Saenz/la 1.91 0.2600-1. Final Nort h mbda Flc 65 [facility] L ab (Internal) : [address] 06/20/2017 Neutrophil BLD ? Anc-manu 16.42 ? Final [place] Count, Absolute al 10*3/uL [facility] (Anc), Blood Hosp ital Lab (Internal) : [address], [address] 06/20/2017 Differential, BLD High Polys 93 % 40-75 % Final [facility], Blood [facility] L ab (Internal) : [address] ? ? BLD ? Bands 0 % 0-5 % Final [facility] L ab (Internal) : [address] ? ? BLD Low Lymphs 5 % 20-50 % Final [facility] L ab (Internal) : [address] t ? ? BLD Low [place] 1 % 2-10 % Final [facility] L ab (Internal) : [address] t ? ? BLD ? Eos 1 % 0-6 % Final [facility] L ab (Internal) : [address] t ? ? BLD ? Baso 0 % 0-1 % Final [facility] L ab (Internal) : [address] t ? ? BLD ? Atyp 0 % ? Final [facility] L ab (Internal) : [address] t ? ? BLD ABNORMA Plts, low adequate Final [facility] (Internal) : [address] t ? ? BLD ABNORMA RBC abnormal normal Final [place] [facility] (Internal) : [address] t ? ? BLD ? Aniso small ? Final [facility] L ab (Internal) : [address] t ? ? BLD ? Hector small ? Final [facility] L ab (Internal) : [address] t ? ? BLD ? Poik small ? Final [place] [hpf] [facility] L [facility] (Internal) : [address] 06/20/2017 CMP, Serum or S High g/r 108 mg/dL 74-106 Fin al [place] Plasma mg/dL [facility] (Internal) : [address] t ? ? S High Bun 150 mg/dL 7-17 Final [place] mg/dL [facility] L ab (Internal) : [address] ? ? S High Crea 4.60 0.52-1.04 Final [place] mg/dL mg/dL [facility] L [facility] (Internal) : [address] ? ? S Low Ca 8.2 mg/dL 8.4-10.2 Final [facility] mg/dL [facility] (Internal) : [address] t ? ? S ? Na 141 137-145 Final [place] mmol/L mmol/L [facility] L ab (Internal) : [address] t ? ? S CRITICA K 6.6 3.5-5.1 Final [place] L HIGH mmol/L mmol/L [facility] L [facility] (Internal) : [address] t ? ? S High Cl 115 98-107 Final [place] mmol/L mmol/L [facility] L ab (Internal) : [address] t ? ? S CRITICA Tco2 15.0 22.0-30.0 Final [place] L LOW mmol/L mmol/L [facility] L ab (Internal) : [address] t ? ? S Low Tp 5.8 g/dL 6.3-8.2 Final [place] g/dL [facility] L ab (Internal) : [address] t ? ? S Low Alb 3.1 g/dL 3.5-5.0 Final [place] g/dL [facility] L ab (Internal) : [address] t ? ? S ? Tbil 0.5 mg/dL 0.2-1.3 Final [place] mg/dL [facility] L ab (Internal) : [address] t ? ? S High Alp 211 U/L 38-126 Final [place] U/L [facility] L ab (Internal) : [address] t ? ? S ? Alt 46 U/L 9-52 U/L Final [place] (Sgpt) [facility] L ab (Internal) : [address] t ? ? S ? Ast 30 U/L 14-36 U/L Final [place] (Sgot) [facility] L ab (Internal) : [address] t 06/20/2017 CBC W/ Auto Diff BLD High Wbc 17.7 5.0-10.0 F inal [place] 10*3/uL 10*3/uL [facility] L [facility] (Internal) : [address] t ? ? BLD Low Rbc 2.50 4.10-5.30 Final [place] 10*6/uL 10*6/uL [facility] (Internal) : [address] t ? ? BLD Low Hgb 7.7 g/dL 12.0-16.0 Final [place] g/dL [facility] L ab (Internal) : [address] t ? ? BLD Low Hct 23.8 % 37.0-47.0 Final [place] % [facility] L ab (Internal) : [address] t ? ? BLD ? Mcv 95.2 fL 80.0-96.0 Final [facility] Hospital L ab (Internal) : [address] t ? ? BLD ? Mch 30.8 pg 26.0-32.0 Final [place] pg [facility] L ab (Internal) : [address] t ? ? BLD ? Mchc 32.4 g/dL 31.0-35.0 Final Nort h g/dL [facility] Hospital L ab (Internal) : [address] t ? ? BLD High Rdw 17.9 % 11.5-14.5 Final [facility] L ab (Internal) : [address] ? ? BLD Low Plt 98 130-450 [facility] 10*3/uL 10*3/uL [facility] ab (Internal) : [address] [facility] 06/14/2017 Venipuncture BLD ? Venpn* ? ? Final [facility] L ab (Internal) : [address] [facility] 06/14/2017 Crossmatch, Lrc, BLD ? X-match, complete ? Final [place] # 1 U [facility] L ab (Internal) : [address] [facility] 06/14/2017 Type + Screen, BLD ? Abo A ? Final [facility] L ab (Internal) : [address] ? ? BLD ? Rh positive ? Final [facility] L ab (Internal) : [address] ? ? BLD ? Ab Scrn negative negative Final [facility] L ab (Internal) : [address] [facility] 06/13/2017 Venipuncture BLD ? Venpn* ? ? Final [facility] L ab (Internal) : [address] [facility] 06/13/2017 Immunoglobulin S High Eugenio Saenz 10.1 0.3300-1. Fi [facility] Light Chains, Free mg/dL 94 mg/dL C ountry Eugenio Saenz, Free, Light Hosp ital Lab Quantitative, Chain, S ( Internal): Serum [address] ? ? S High Lambda 6.59 0.5700-2. [facility] Free mg/dL 63 mg/dL [facility] L ab Chain, S (Interna l): [address] ? ? S ? Eugenio Saenz/la 1.53 0.2600-1. [facility] L ab (Internal) : [address] 06/13/2017 Neutrophil BLD ? Anc-manu 15.44 ? [facility] Count, Absolute al 10*3/uL [facility] (Anc), Blood Hosp ital Lab (Internal) : [address] [facility] 06/13/2017 Differential, BLD High Polys 80 % 40-75 % Final [place] Manual, Blood Cou [facility] Hospital L ab (Internal) : [address] t ? ? BLD ? Bands 3 % 0-5 % Final [facility] ab (Internal) : [address] ? ? BLD Low Lymphs 6 % 20-50 % Final [facility] ab (Internal) : [address] t ? ? BLD ? [place] 3 % 2-10 % Final [facility] ab (Internal) : [address] ? ? BLD ? Eos 6 % 0-6 % Final [facility] ab (Internal) : [address] ? ? BLD ? Baso 0 % 0-1 % Final [facility] ab (Internal) : [address] ? ? BLD ? Atyp 0 % ? Final [facility] ab (Internal) : [address] t ? ? BLD High [place] 2 % 0-0 % Final [facility] ab (Internal) : [address] ? ? BLD ? Plts, adequate adequate [facility] ab (Internal) : [address] t ? ? BLD ABNORMA RBC abnormal normal Final [facility] Morpholog [facility] ab (Internal) : [address] t ? ? BLD ? Aniso occasiona ? Final [facility] ab (Internal) : [address] t ? ? BLD ? Hector small ? Final [facility] ab (Internal) : [address] t ? ? BLD ? Poik small ? Final [place] [hpf] [facility] L ab (Internal) : [address] t 06/13/2017 CMP, Serum or S High g/r 154 mg/dL 74-106 Fin al [place] Plasma mg/dL [facility] L ab (Internal) : [address] t ? ? S High Bun 136 mg/dL 7-17 Final [place] mg/dL [facility] L ab (Internal) : [address] t ? ? S High Crea 4.40 0.52-1.04 Final [place] mg/dL mg/dL [facility] L [facility] (Internal) : [address] t ? ? S ? Ca 8.4 mg/dL 8.4-10.2 Final [facility] mg/dL [facility] L [facility] (Internal) : [address] t ? ? S ? Na 142 137-145 Final [place] mmol/L mmol/L [facility] L [facility] (Internal) : [address] t ? ? S High K 5.5 3.5-5.1 Final [place] mmol/L mmol/L [facility] L [facility] (Internal) : [address] t ? ? S High Cl 114 98-107 Final [place] mmol/L mmol/L [facility] L [facility] (Internal) : [address] t ? ? S Low Tco2 16.0 22.0-30.0 Final [place] mmol/L mmol/L [facility] L ab (Internal) : [address] t ? ? S Low Tp 6.0 g/dL 6.3-8.2 Final [facility] g/dL [facility] L [facility] (Internal) : [address] t ? ? S Low Alb 3.2 g/dL 3.5-5.0 Final [facility] g/dL [facility] L [facility] (Internal) : [address] t ? ? S ? Tbil 0.5 mg/dL 0.2-1.3 Final [facility] mg/dL [facility] L [facility] (Internal) : [address] t ? ? S High Alp 233 U/L 38-126 Final [facility] U/L [facility] L [facility] (Internal) : [address] t ? ? S ? Alt 42 U/L 9-52 U/L Final [place] (Sgpt) [facility] L ab (Internal) : [address] t ? ? S ? Ast 22 U/L 14-36 U/L Final [place] (Sgot) [facility] L ab (Internal) : [address] t 06/13/2017 CBC W/ Auto Diff BLD High Wbc 18.6 5.0-10.0 F inal [place] 10*3/uL 10*3/uL [facility] L ab (Internal) : [address] t ? ? BLD Low Rbc 2.55 4.10-5.30 Final [place] 10*6/uL 10*6/uL [facility] L ab (Internal) : [address] ? ? BLD Low Hgb 7.7 g/dL 12.0-16.0 Final [place] g/dL [facility] L ab (Internal) : [address] Mikeneftaly siddhartha ? ? BLD Low Hct 23.9 % 37.0-47.0 Final [facility] L ab (Internal) : [address] ? ? BLD ? Mcv 93.7 fL 80.0-96.0 Final [facility] L ab (Internal) : [address] ? ? BLD ? Mch 30.2 pg 26.0-32.0 Final [facility] L ab (Internal) : [address] siddhartha ? ? BLD ? Mchc 32.2 g/dL 31.0-35.0 [facility] L ab (Internal) : [address] ? ? BLD High Rdw 16.9 % 11.5-14.5 Final [facility] L ab (Internal) : [address] siddhartha ? ? BLD ? Plt 166 130-450 Final [place] 10*3/uL 10*3/uL [facility] L ab (Internal) : [address] 06/06/2017 Venipuncture BLD ? Venpn* ? ? Final [facility] L ab (Internal) : [address] 06/06/2017 Immunoglobulin S High Eugenio Saenz 8.13 0.3300-1. Fi [facility] Light Chains, Free mg/dL 94 mg/dL C ountry Eugenio Saenz, Free, Light Hosp ital Lab Quantitative, Chain, S ( Internal): Serum [address] ? ? S ? Lambda 2.23 0.5700-2. Final [place] Free mg/dL 63 mg/dL [facility] L ab Chain, S (Interna l): [address] ? ? S High Eugenio Saenz/la 3.65 0.2600-1. Final Nort h mbda Flc 65 [facility] L ab (Internal) : [address] 06/06/2017 Neutrophil BLD ? Anc-manu 17.79 ? Final [place] Count, Absolute al 10*3/uL [facility] (Anc), Blood Hosp ital Lab (Internal) : [address] 06/06/2017 Differential, BLD High Polys 79 % 40-75 % Final [facility], Blood [facility] Hospital L ab (Internal) : [address] t ? ? BLD ? Bands 0 % 0-5 % Final [facility] L ab (Internal) : [address] t ? ? BLD Low Lymphs 4 % 20-50 % Final [facility] L ab (Internal) : [address] t ? ? BLD Low [place] 1 % 2-10 % Final [facility] L ab (Internal) : [address] t ? ? BLD High Eos 16 % 0-6 % Final [facility] L ab (Internal) : [address] ? ? BLD ? Baso 0 % 0-1 % Final [facility] L ab (Internal) : [address] t ? ? BLD ? Atyp 0 % ? Final [facility] L ab (Internal) : [address] t ? ? BLD ? Plts, adequate adequate Final [facility] L ab (Internal) : [address] t ? ? BLD ABNORMA RBC abnormal normal Final [facility] Morpholog [facility] L ab (Internal) : [address] ? ? BLD ? Aniso small ? Final [facility] L ab (Internal) : [address] t ? ? BLD ? Poik occasiona ? Final [facility] [hpf] [facility] L ab (Internal) : [address] 06/06/2017 CMP, Serum or S High g/r 137 mg/dL 74-106 Fin al [place] Plasma mg/dL [facility] L ab (Internal) : [address] t ? ? S High Bun 121 mg/dL 7-17 Final [place] mg/dL [facility] L ab (Internal) : [address] t ? ? S High Crea 4.60 0.52-1.04 Final [place] mg/dL mg/dL [facility] L ab (Internal) : [address] t ? ? S Low Ca 7.7 mg/dL 8.4-10.2 Final [facility] mg/dL [facility] L [facility] (Internal) : [address] t ? ? S ? Na 140 137-145 Final [place] mmol/L mmol/L [facility] L ab (Internal) : [address] t ? ? S ? K 5.1 3.5-5.1 Final [place] mmol/L mmol/L [facility] L ab (Internal) : [address] t ? ? S High Cl 112 98-107 Final [place] mmol/L mmol/L [facility] L ab (Internal) : [address] t ? ? S Low Tco2 18.0 22.0-30.0 Final [place] mmol/L mmol/L [facility] L ab (Internal) : [address] t ? ? S Low Tp 5.2 g/dL 6.3-8.2 Final [facility] g/dL [facility] L [facility] (Internal) : [address] t ? ? S Low Alb 2.9 g/dL 3.5-5.0 Final [facility] g/dL [facility] L [facility] (Internal) : [address] t ? ? S ? Tbil 0.6 mg/dL 0.2-1.3 Final [facility] mg/dL [facility] L [facility] (Internal) : [address] t ? ? S High Alp 180 U/L 38-126 Final [place] U/L [facility] L ab (Internal) : [address] t ? ? S ? Alt 40 U/L 9-52 U/L Final [place] (Sgpt) [facility] L ab (Internal) : [address] t ? ? S ? Ast 19 U/L 14-36 U/L Final [place] (Sgot) [facility] L ab (Internal) : [address] t 06/06/2017 CBC W/ Auto Diff BLD High Wbc 22.5 5.0-10.0 F inal [place] 10*3/uL 10*3/uL [facility] L [facility] (Internal) : [address] t ? ? BLD Low Rbc 2.74 4.10-5.30 Final [place] 10*6/uL 10*6/uL [facility] Hospital L ab (Internal) : [address] t ? ? BLD Low Hgb 8.3 g/dL 12.0-16.0 Final [place] g/dL [facility] L ab (Internal) : [address] ? ? BLD Low Hct 25.5 % 37.0-47.0 Final [facility] L ab (Internal) : [address] t ? ? BLD ? Mcv 93.1 fL 80.0-96.0 Final [facility] L ab (Internal) : [address] ? ? BLD ? Mch 30.3 pg 26.0-32.0 Final [facility] L ab (Internal) : [address] ? ? BLD ? Mchc 32.5 g/dL 31.0-35.0 Final Nort h g/dL [facility] Hospital L ab (Internal) : [address] ? ? BLD High Rdw 15.7 % 11.5-14.5 Final [facility] L ab (Internal) : [address] ? ? BLD ? Plt 286 130-450 Final [place] 10*3/uL 10*3/uL [facility] L ab (Internal) : [address] 06/01/2017 Lactic Acid, S ? La 1.0 0.7-2.1 Final [place] Blood mmol/L mmol/L [facility] L ab (Internal) : [address] 06/01/2017 Neutrophil BLD ? Anc-manu 26.95 ? Final [place] Count, Absolute al 10*3/uL [facility] (Anc) Blood Hosp ital Lab (Internal) : [address] 06/01/2017 Differential, BLD High Polys 96 % 40-75 % Final [facility], Blood [facility] L ab (Internal) : [address] ? ? BLD ? Bands 2 % 0-5 % Final [facility] L ab (Internal) : [address] ? ? BLD Low Lymphs 1 % 20-50 % Final [facility] L ab (Internal) : [address] ? ? BLD Low [place] 1 % 2-10 % Final [facility] L ab (Internal) : [address] ? ? BLD ? Eos 0 % 0-6 % Final [facility] L ab (Internal) : [address] ? ? BLD ? Baso 0 % 0-1 % Final [facility] L ab (Internal) : [address] ? ? BLD ? Atyp 0 % ? Final [facility] L ab (Internal) : [address] ? ? BLD ? Plts, adequate adequate Final [facility] (Internal) : [address] ? ? BLD ? RBC normal normal Final [place] [facility]olog [facility] L [facility] (Internal) : [address] 06/01/2017 BMP, Serum or S ? g/r 83 mg/dL 74-106 Kina l [place] Plasma mg/dL [facility] L ab (Internal) : [address] t ? ? S High Bun 114 mg/dL 7-17 Final [facility] mg/dL [facility] L [facility] (Internal) : [address] ? ? S High Crea 5.00 0.52-1.04 Final [place] mg/dL mg/dL [facility] L ab (Internal) : [address] ? ? S Low Ca 8.3 mg/dL 8.4-10.2 Final [facility] mg/dL [facility] L [facility] (Internal) : [address] ? ? S Low Na 136 137-145 Final [facility] mmol/L mmol/L [facility] L ab (Internal) : [address] t ? ? S High K 5.4 3.5-5.1 Final [facility] mmol/L mmol/L [facility] L [facility] (Internal) : [address] t ? ? S ? Cl 103 98-107 Final [facility] mmol/L mmol/L [facility] L ab (Internal) : [address] t ? ? S Low Tco2 20.0 22.0-30.0 Final [place] mmol/L mmol/L [facility] L ab (Internal) : [address] 06/01/2017 CBC W/ Auto Diff BLD CRITICA Wbc 27.5 5.0-10.0 Final [place] L HIGH 10*3/uL 10*3/uL [facility] L ab (Internal) : [address] ? ? BLD Low Rbc 2.87 4.10-5.30 Final [place] 10*6/uL 10*6/uL [facility] L ab (Internal) : [address] ? ? BLD Low Hgb 8.8 g/dL 12.0-16.0 Final [place] g/dL [facility] L ab (Internal) : [address] ? ? BLD Low Hct 25.8 % 37.0-47.0 Final [facility] L ab (Internal) : [address] ? ? BLD ? Mcv 89.9 fL 80.0-96.0 Final [facility] L ab (Internal) : [address] ? ? BLD ? Mch 30.7 pg 26.0-32.0 Final [facility] L ab (Internal) : [address] ? ? BLD ? Mchc 34.1 g/dL 31.0-35.0 Final Nort h g/dL [facility] L ab (Internal) : [address] ? ? BLD High Rdw 14.6 % 11.5-14.5 Final [facility] L ab (Internal) : [address] ? ? BLD ? Plt 196 130-450 Final [place] 10*3/uL 10*3/uL [facility] L ab (Internal) : [address] 05/30/2017 Venipuncture BLD ? Venpn* ? ? Final [facility] L ab (Internal) : [address] 05/30/2017 Immunoglobulin S High Eugenio Saenz 7.29 0.3300-1. Fi nal [place] Light Chains, Free mg/dL 94 mg/dL C ountry Eugenio Saenz, Free, Light Hosp ital Lab Quantitative, Chain, S ( Internal): Serum [address] ? ? S ? Lambda 1.64 0.5700-2. Final [place] Free mg/dL 63 mg/dL [facility] L ab Chain, S (Interna l): [address] t ? ? S High Eugenio Saenz/la 4.45 0.2600-1. Final Nort h mbda Flc 65 [facility] L ab (Internal) : [address] 05/30/2017 Neutrophil BLD ? Anc-manu 20.52 ? Final [place] Count, Absolute al 10*3/uL [facility] (Anc), Blood Hosp ital Lab (Internal) : [address] 05/30/2017 Differential, BLD High Polys 94 % 40-75 % Final [facility], Blood [facility] Hospital L ab (Internal) : [address] t ? ? BLD ? Bands 0 % 0-5 % Final [facility] L ab (Internal) : [address] ? ? BLD Low Lymphs 3 % 20-50 % Final [facility] L ab (Internal) : [address] ? ? BLD ? [place] 2 % 2-10 % Final [facility] L ab (Internal) : [address] ? ? BLD ? Eos 1 % 0-6 % Final [facility] L ab (Internal) : [address] ? ? BLD ? Baso 0 % 0-1 % Final [facility] L ab (Internal) : [address] ? ? BLD ? Atyp 0 % ? Final [facility] L ab (Internal) : [address] ? ? BLD ? Plts, adequate adequate Final [facility] Hospital L ab (Internal) : [address] t ? ? BLD ABNORMA RBC abnormal normal Final [facility] Morpholog [facility] L ab (Internal) : [address] ? ? BLD ? Hector small ? Final [facility] L ab (Internal) : [address] 05/30/2017 CMP, Serum or S High g/r 169 mg/dL 74-106 Fin al [place] Plasma mg/dL [facility] L ab (Internal) : [address] t ? ? S High Bun 104 mg/dL 7-17 Final [place] mg/dL [facility] L [facility] (Internal) : [address] t ? ? S High Crea 4.60 0.52-1.04 Final [facility] mg/dL mg/dL [facility] L ab (Internal) : [address] t ? ? S Low Ca 7.6 mg/dL 8.4-10.2 Final [facility] mg/dL [facility] L ab (Internal) : [address] t ? ? S Low Na 129 137-145 Final [facility] mmol/L mmol/L [facility] L [facility] (Internal) : [address] ? ? S High K 5.4 3.5-5.1 Final [facility] mmol/L mmol/L [facility] L ab (Internal) : [address] t ? ? S ? Cl 101 98-107 Final [facility] mmol/L mmol/L [facility] L ab (Internal) : [address] ? ? S Low Tco2 16.0 22.0-30.0 Final [place] mmol/L mmol/L [facility] L [facility] (Internal) : [address] ? ? S Low Tp 5.3 g/dL 6.3-8.2 Final [facility] g/dL [facility] L [facility] (Internal) : [address] ? ? S Low Alb 3.2 g/dL 3.5-5.0 Final [facility] g/dL [facility] L [facility] (Internal) : [address] ? ? S ? Tbil 0.5 mg/dL 0.2-1.3 Final [facility] mg/dL [facility] L [facility] (Internal) : [address] ? ? S High Alp 163 U/L 38-126 Final [place] U/L [facility] Hospital L ab (Internal) : [address] ? ? S ? Alt 45 U/L 9-52 U/L Final [place] (Sgpt) [facility] Hospital L ab (Internal) : [address] ? ? S ? Ast 21 U/L 14-36 U/L Final [place] (Sgot) [facility] Hospital L ab (Internal) : [address] 05/30/2017 CBC W/ Auto Diff BLD High Wbc 21.8 5.0-10.0 F inal [place] 10*3/uL 10*3/uL [facility] L ab (Internal) : [address] ? ? BLD Low Rbc 3.14 4.10-5.30 Final [place] 10*6/uL 10*6/uL [facility] L ab (Internal) : [address] ? ? BLD Low Hgb 9.6 g/dL 12.0-16.0 Final [place] g/dL [facility] L ab (Internal) : [address], Atiya t ? ? BLD Low Hct 28.2 % 37.0-47.0 Final [facility] L ab (Internal) : [address] ? ? BLD ? Mcv 89.8 fL 80.0-96.0 Final [facility] L ab (Internal) : [address] siddhartha ? ? BLD ? Mch 30.6 pg 26.0-32.0 Final [facility] L ab (Internal) : [address] ? ? BLD ? Mchc 34.0 g/dL 31.0-35.0 Final Nort h g/dL [facility] L ab (Internal) : [address], Atiya carl ? ? BLD High Rdw 14.6 % 11.5-14.5 Final [facility] L ab (Internal) : [address], Atiya carl ? ? BLD ? Plt 194 130-450 Final [place] 10*3/uL 10*3/uL [facility] L ab (Internal) : [address] 05/26/2017 Venipuncture BLD ? Venpn* ? ? Final [facility] L ab (Internal) : [address], Atiya carl 05/26/2017 Immunoglobulin S High Eugenio Saenz 9.57 0.3300-1. Fi nal [place] Light Chains, Free mg/dL 94 mg/dL C ountry Eugenio Saenz, Free, Light Hosp ital Lab Quantitative, Chain, S ( Internal): Serum [address] ? ? S ? Lambda 1.86 0.5700-2. Final [place] Free mg/dL 63 mg/dL [facility] L ab Chain, S (Interna l): [address], [place] ? ? S High Eugenio Saenz/la 5.15 0.2600-1. Final Nort h mbda Flc 65 Country [facility] Hospital L ab (Internal) : [address] 05/26/2017 Neutrophil BLD ? Anc-manu 17.56 ? Final [place] Count, Absolute al 10*3/uL [facility] (Anc), Blood Hosp ital Lab (Internal) : [address] 05/26/2017 Differential, BLD High Polys 78 % 40-75 % Final [place] Manual, Blood Cou [facility] Hospital L ab (Internal) : [address] ? ? BLD ? Bands 0 % 0-5 % [facility] [facility] Hospital L ab (Internal) : [address] ? ? BLD Low Lymphs 7 % 20-50 % Final [facility] Hospital L ab (Internal) : [address] ? ? BLD ? [place] 4 % 2-10 % Final [facility] Hospital L ab (Internal) : [address] ? ? BLD High Eos 9 % 0-6 % Final [facility] Hospital L ab (Internal) : [address] ? ? BLD ? Baso 1 % 0-1 % Final [facility] Hospital L ab (Internal) : [address] ? ? BLD ? Atyp 0 % ? Final [facility] Hospital L ab (Internal) : [address] ? ? BLD High Young 1 % 0-0 % Final [facility] Hospital L ab (Internal) : [address] ? ? BLD ? Plts, adequate adequate Final [facility] : [address] ? ? BLD ? RBC normal normal Final [place] [facility] (Internal[facility] : [address] 05/26/2017 CMP, Serum or S High g/r 114 mg/dL 74-106 Fin al [place] Plasma mg/dL [facility] Hospital L ab (Internal) : [address] ? ? S High Bun 100 mg/dL 7-17 Final [place] mg/dL [facility] Hospital L ab (Internal) : [address] ? ? S High Crea 4.80 0.52-1.04 Final [facility] mg/dL mg/dL [facility] : [address] t ? ? S Low Ca 6.8 mg/dL 8.4-10.2 Final [facility] mg/dL [facility] ([facility] : [address] t ? ? S Low Na 126 137-145 Final [facility] mmol/L mmol/L [facility] (Internal) : [address] t ? ? S ? K 4.8 3.5-5.1 Final [facility] mmol/L mmol/L [facility] (Internal) : [address] t ? ? S Low Cl 96 mmol/L 98-107 Final [facility] mmol/L [facility] (Internal) : [address] t ? ? S Low Tco2 20.0 22.0-30.0 Final [facility] mmol/L mmol/L [facility] (Internal) : [address] t ? ? S Low Tp 4.8 g/dL 6.3-8.2 Final [facility] g/dL [facility] ([facility] : [address] t ? ? S Low Alb 2.8 g/dL 3.5-5.0 Final [facility] g/dL [facility] ([facility] : [address] t ? ? S ? Tbil 0.4 mg/dL 0.2-1.3 Final [facility] mg/dL [facility] ([facility] : [address] t ? ? S ? Alp 116 U/L 38-126 Final [facility] U/L [facility] ([facility]) : [address] t ? ? S ? Alt 48 U/L 9-52 U/L Final [place] (Sgpt) [facility] (Internal[facility] : [address] t ? ? S ? Ast 21 U/L 14-36 U/L Final [place] (Sgot) [facility] (Internal) : [address] 05/26/2017 CBC W/ Auto Diff BLD High Wbc 22.5 5.0-10.0 F inal [place] 10*3/uL 10*3/uL [facility] (Internal) : [address] t ? ? BLD Low Rbc 3.24 4.10-5.30 Final [place] 10*6/uL 10*6/uL [facility] L ab (Internal) : [address] ? ? BLD Low Hgb 9.9 g/dL 12.0-16.0 Final [place] g/dL [facility] L ab (Internal) : [address] ? ? BLD Low Hct 29.0 % 37.0-47.0 Final [facility] L ab (Internal) : [address] ? ? BLD ? Mcv 89.5 fL 80.0-96.0 Final [facility] L ab (Internal) : [address] ? ? BLD ? Mch 30.6 pg 26.0-32.0 Final [facility] L ab (Internal) : [address] ? ? BLD ? Mchc 34.1 g/dL 31.0-35.0 [facility] L ab (Internal) : [address] ? ? BLD ? Rdw 14.1 % 11.5-14.5 Final [facility] L ab (Internal) : [address] ? ? BLD ? Plt 206 130-450 Final [place] 10*3/uL 10*3/uL [facility] L ab (Internal) : [address] 05/23/2017 Venipuncture BLD ? Venpn* ? ? Final [facility] L ab (Internal) : [address] 05/23/2017 Immunoglobulin S High Eugenio Saenz 14.8 0.3300-1. Fi nal [place] Light Chains, Free mg/dL 94 mg/dL C ountry Eugenio Saenz, Free, Light Hosp ital Lab Quantitative, Chain, S ( Internal): Serum [address] ? ? S ? Lambda 1.89 0.5700-2. Final [place] Free mg/dL 63 mg/dL [facility] L ab Chain, S (Interna l): [address] ? ? S High Eugenio Saenz/la 7.83 0.2600-1. Final Nort h mbda Flc 65 [facility] Hospital L ab (Internal) : [address] 05/23/2017 Neutrophil BLD ? Anc-manu 11.95 ? Final [place] Count, Absolute al 10*3/uL [facility] (Anc), Blood Hosp ital Lab (Internal) : [address] 05/23/2017 Differential, BLD ? Polys 72 % 40-75 % Final [facility], Blood Cou [facility] Hospital L ab (Internal) : [address] ? ? BLD ? Bands 4 % 0-5 % Final [facility] Hospital L ab (Internal) : [address] ? ? BLD Low Lymphs 7 % 20-50 % Final [facility] Hospital L ab (Internal) : [address] ? ? BLD ? [place] 3 % 2-10 % Final [facility] Hospital L ab (Internal) : [address] ? ? BLD High Eos 9 % 0-6 % Final [facility] Hospital L ab (Internal) : [address] ? ? BLD High Baso 3 % 0-1 % Final [facility] Hospital L ab (Internal) : [address] ? ? BLD ? Atyp 0 % ? Final [facility] L ab (Internal) : [address] ? ? BLD High [place] 2 % 0-0 % Final [facility] Hospital L ab (Internal) : [address] ? ? BLD ? Plts, adequate adequate Final [place] Est. [facility] Hospital L ab (Internal) : [address] ? ? BLD ? RBC normal normal Final [place] [facility] L [facility] (Internal) : [address] 05/23/2017 CMP, Serum or S High g/r 133 mg/dL 74-106 Fin al [place] Plasma mg/dL [facility] Hospital L ab (Internal) : [address] ? ? S High Bun 94 mg/dL 7-17 Final [place] mg/dL [facility] Hospital L ab (Internal) : [address] ? ? S High Crea 4.50 0.52-1.04 Final [place] mg/dL mg/dL [facility] Hospital L ab (Internal) : [address] t ? ? S Low Ca 6.7 mg/dL 8.4-10.2 Final [facility] mg/dL [facility] ([facility]) : [address] t ? ? S Low Na 126 137-145 Final [facility] mmol/L mmol/L [facility] (Internal) : [address] t ? ? S ? K 4.2 3.5-5.1 Final [facility] mmol/L mmol/L [facility] (Internal) : [address] t ? ? S Low Cl 97 mmol/L 98-107 Final [facility] mmol/L [facility] (Internal) : [address] t ? ? S Low Tco2 20.0 22.0-30.0 Final [facility] mmol/L mmol/L [facility] (Internal) : [address] t ? ? S Low Tp 4.3 g/dL 6.3-8.2 Final [facility] g/dL [facility] (Internal) : [address] t ? ? S Low Alb 2.3 g/dL 3.5-5.0 Final [facility] g/dL [facility] (Internal) : [address] t ? ? S ? Tbil 0.4 mg/dL 0.2-1.3 Final [facility] mg/dL [facility] (Internal) : [address] t ? ? S ? Alp 96 U/L 38-126 Final [facility] U/L [facility] (Internal) : [address] t ? ? S ? Alt 39 U/L 9-52 U/L Final [place] (Sgpt) [facility] L [facility] (Internal) : [address] t ? ? S Low Ast 12 U/L 14-36 U/L Final [place] (Sgot) [facility] L [facility] (Internal) : [address] t 05/23/2017 CBC W/ Auto Diff BLD High Wbc 15.7 5.0-10.0 F inal [place] 10*3/uL 10*3/uL [facility] (Internal) : [address] t ? ? BLD Low Rbc 3.70 4.10-5.30 Final [facility] 10*6/uL 10*6/uL [facility] Hospital L ab (Internal) : [address] ? ? BLD Low Hgb 11.3 g/dL 12.0-16.0 Final Nort h g/dL [facility] L ab (Internal) : [address] ? ? BLD Low Hct 33.1 % 37.0-47.0 Final [facility] L ab (Internal) : [address] ? ? BLD ? Mcv 89.5 fL 80.0-96.0 Final [facility] L ab (Internal) : [address] ? ? BLD ? Mch 30.5 pg 26.0-32.0 Final [facility] L ab (Internal) : [address] ? ? BLD ? Mchc 34.1 g/dL 31.0-35.0 Final Nort h g/dL [facility] Hospital L ab (Internal) : [address] ? ? BLD ? Rdw 13.9 % 11.5-14.5 Final [facility] L ab (Internal) : [address] ? ? BLD ? Plt 256 130-450 Final [place] 10*3/uL 10*3/uL [facility] L ab (Internal) : [address] 05/20/2017 Venipuncture BLD ? Venpn* ? ? Final [facility] L ab (Internal) : [address] 05/20/2017 Neutrophil BLD ? Anc-manu 5.67 ? Final [place] Count, Absolute al 10*3/uL [facility] (Anc) Blood Hosp ital Lab (Internal) : [address] 05/20/2017 Differential, BLD High Polys 81 % 40-75 % Final [facility] Blood [facility] L ab (Internal) : [address] ? ? BLD ? Bands 1 % 0-5 % Final [facility] L ab (Internal) : [address] ? ? BLD Low Lymphs 6 % 20-50 % Final [facility] L ab (Internal) : [address] ? ? BLD Low [place] 0 % 2-10 % Final [facility] (Internal) : [address] t ? ? BLD High Eos 11 % 0-6 % Final [facility] Hospital L ab (Internal) : [address] t ? ? BLD ? Baso 0 % 0-1 % Final [facility] Hospital L ab (Internal) : [address] t ? ? BLD ? Atyp 0 % ? Final [facility] Hospital L ab (Internal) : [address] t ? ? BLD ? [place] 1 % ? Final [facility] Hospital L ab (Internal) : [address] t ? ? BLD ? Plts, adequate adequate Final [facility] Hospital L ab (Internal) : [address] t ? ? BLD ? RBC normal normal Final [facility] Hospital L ab (Internal) : [address] 05/20/2017 CBC W/ Auto Diff BLD ? Wbc 6.9 5.0-10.0 F inal [place] 10*3/uL 10*3/uL [facility] Hospital L ab (Internal) : [address] t ? ? BLD Low Rbc 3.22 4.10-5.30 Final [place] 10*6/uL 10*6/uL [facility] Hospital L ab (Internal) : [address] t ? ? BLD Low Hgb 9.9 g/dL 12.0-16.0 Final [place] g/dL [facility] Hospital L ab (Internal) : [address] t ? ? BLD Low Hct 28.6 % 37.0-47.0 Final [facility] Hospital L ab (Internal) : [address] t ? ? BLD ? Mcv 88.8 fL 80.0-96.0 Final [facility] Hospital L ab (Internal) : [address] t ? ? BLD ? Mch 30.7 pg 26.0-32.0 Final [facility] Hospital L ab (Internal) : [address] t ? ? BLD ? Mchc 34.6 g/dL 31.0-35.0 Final Nort h g/dL [facility] Hospital L ab (Internal) : [address] t ? ? BLD ? Rdw 13.6 % 11.5-14.5 Final [facility] % [facility] L [facility] (Internal) : [address] t ? ? BLD ? Plt 204 130-450 Final [facility] 10*3/uL 10*3/uL [facility] L [facility] (Internal) : [address] 05/20/2017 CMP, Serum or S High g/r 119 mg/dL 74-106 Fin al [facility] Plasma mg/dL [facility] L [facility] (Internal) : [address] t ? ? S High Bun 89 mg/dL 7-17 Final [facility] mg/dL [facility] L [facility] (Internal) : [address] t ? ? S High Crea 4.50 0.52-1.04 Final [facility] mg/dL mg/dL [facility] L [facility] (Internal) : [address] t ? ? S CRITICA Ca 6.5 mg/dL 8.4-10.2 Final Nort h L LOW mg/dL [facility] L [facility] (Internal) : [address] t ? ? S Low Na 126 137-145 Final [facility] mmol/L mmol/L [facility] L [facility] (Internal) : [address] t ? ? S ? K 3.8 3.5-5.1 Final [facility] mmol/L mmol/L [facility] L [facility] (Internal) : [address] t ? ? S Low Cl 95 mmol/L 98-107 Final [facility] mmol/L [facility] L [facility] (Internal) : [address] t ? ? S ? Tco2 23.0 22.0-30.0 Final [facility] mmol/L mmol/L [facility] L [facility] (Internal) : [address] t ? ? S Low Tp 4.4 g/dL 6.3-8.2 Final [facility] g/dL [facility] L [facility] (Internal) : [address] t ? ? S Low Alb 2.4 g/dL 3.5-5.0 Final [facility] g/dL [facility] L [facility] (Internal) : [address] t ? ? S ? Tbil 0.5 mg/dL 0.2-1.3 Final [facility] mg/dL [facility] L [facility] (Internal) : [address] ? ? S High Alp 131 U/L 38-126 Final [place] U/L [facility] L ab (Internal) : [address] ? ? S ? Alt 48 U/L 9-52 U/L [facility] (Sgpt) [facility] L ab (Internal) : [address] t ? ? S ? Ast 16 U/L 14-36 U/L Final [place] (Sgot) [facility] L ab (Internal) : [address] 05/20/2017 Immunoglobulin S High Eugenio Saenz 15.2 0.3300-1. Fi nal [place] Light Chains, Free mg/dL 94 mg/dL C ountry Eugenio Saenz, Free, Light Hosp ital Lab Quantitative, Chain, S ( Internal): Serum [address] siddhartha ? ? S ? Lambda 2.10 0.5700-2. Final [place] Free mg/dL 63 mg/dL [facility] L ab Chain, S (Interna l): [address] siddhartha ? ? S High Eugenio Saenz/la 7.24 0.2600-1. Final Nort h mbda Flc 65 [facility] L ab (Internal) : [address] 04/25/2017 Venipuncture BLD ? Venpn* ? ? Final [facility] L ab (Internal) : [address] 04/25/2017 CBC W/ Auto Diff BLD ? Wbc 9.2 5.0-10.0 F inal [place] 10*3/uL 10*3/uL [facility] L ab (Internal) : [address] ? ? BLD Low Rbc 2.67 4.10-5.30 [facility] 10*6/uL 10*6/uL [facility] L ab (Internal) : [address] ? ? BLD Low Hgb 8.3 g/dL 12.0-16.0 Final [place] g/dL [facility] L ab (Internal) : [address] ? ? BLD Low Hct 25.0 % 37.0-47.0 Final [facility] L ab (Internal) : [address] ? ? BLD ? Mcv 93.6 fL 80.0-96.0 Final [facility] Hospital L ab (Internal) : [address] ? ? BLD ? Mch 31.1 pg 26.0-32.0 Final [facility] Hospital L ab (Internal) : [address] ? ? BLD ? Mchc 33.2 g/dL 31.0-35.0 Final Nort h g/dL [facility] Hospital L ab (Internal) : [address] ? ? BLD ? Rdw 12.1 % 11.5-14.5 Final [facility] L ab (Internal) : [address] ? ? BLD ? Plt 200 130-450 Final [place] 10*3/uL 10*3/uL [facility] Hospital L ab (Internal) : [address] ? ? BLD ? Anc 6.28 ? Final [place] 10*3/uL [facility] L ab (Internal) : [address] ? ? BLD ? Neutro 68.5 % 40.0-75.0 Final [facility] L ab (Internal) : [address] ? ? BLD ? Lymph 23.4 % 20.0-50.0 Final [facility] L ab (Internal) : [address] ? ? BLD ? [place] 5.5 % 2.0-10.0 Final [facility] L ab (Internal) : [address] ? ? BLD ? Eos 2.0 % 1.0-6.0 % Final [facility] L ab (Internal) : [address] ? ? BLD ? Baso 0.4 % 0.0-1.0 % Final [facility] L ab (Internal) : [address] ? ? BLD ? Ig 0.2 % 0.0-0.9 % Final [facility] L ab (Internal) : [address] t 04/22/2017 Venipuncture BLD ? Venpn* ? ? Final [facility] L ab (Internal) : [address] t 04/22/2017 Protein S Low Total 6.0 g/dL 6.3-8.2 Final No rth Electrophoresis Protein g/dL [facility] Panel, Serum or H ospital Lab Plasma (Internal) : [address] t ? ? S ? Albumin 64.2 % 55.8-66.1 Final [facility] L ab (Internal) : [address] ? ? S High Alpha 1 6.2 % 2.9-4.9 % Final [facility] L ab (Internal) : [address] t ? ? S ? Alpha 2 10.3 % 7.1-11.8 Final [facility] L ab (Internal) : [address] t ? ? S ? Beta 11.0 % 8.4-13.1 Final [facility] L ab (Internal) : [address] t ? ? S Low Gamma 8.3 % 11.1-18.8 Final [facility] L ab (Internal) : [address] t ? ? S ? Comments see ? Final [facility] Hospital L ab (Internal) : [address] 04/22/2017 Immunoglobulins S Low Igg 498 mg/dL [phone] Final [place] Iga+igg+igm, mg/dL Coun try Quantitative, Hos pital Lab Serum (Internal) : [address] t ? ? S Low Iga 65 mg/dL 82-453 Final [place] mg/dL [facility] L ab (Internal) : [address] ? ? S ? Igm 77 mg/dL 46-304 Final [place] mg/dL [facility] L ab (Internal) : [address] 04/22/2017 Immunoglobulin S High Eugenio Saenz 245 mg/dL 0.3300-1. Final [place] Light Chains, Free 94 mg/dL C ountry Eugenio Saenz, Free, Light Hosp ital Lab Quantitative, Chain, S ( Internal): Serum [address] ? ? S ? Lambda 1.95 0.5700-2. Final [place] Free mg/dL 63 mg/dL [facility] L ab Chain, S (Interna l): [address] ? ? S High Eugenio Saenz/la 126 0.2600-1. Final Nort h mbda Flc 65 [facility] L ab (Internal) : [address] t 04/22/2017 CMP, Serum or S High g/r 179 mg/dL 74-106 Fin al [facility] Plasma mg/dL [facility] L [facility] (Internal) : [address] t ? ? S High Bun 82 mg/dL 7-17 Final [facility] mg/dL [facility] L [facility] (Internal) : [address] t ? ? S High Crea 5.20 0.52-1.04 Final [facility] mg/dL mg/dL [facility] L ab (Internal) : [address] t ? ? S ? Ca 8.4 mg/dL 8.4-10.2 Final [facility] mg/dL [facility] L ab (Internal) : [address] t ? ? S ? Na 140 137-145 Final [facility] mmol/L mmol/L [facility] L ab (Internal) : [address] t ? ? S High K 5.7 3.5-5.1 Final [facility] mmol/L mmol/L [facility] L ab (Internal) : [address] t ? ? S High Cl 116 98-107 Final [facility] mmol/L mmol/L [facility] L ab (Internal) : [address] t ? ? S Low Tco2 16.0 22.0-30.0 Final [facility] mmol/L mmol/L [facility] L ab (Internal) : [address] ? ? S ? Tp 6.5 g/dL 6.3-8.2 Final [facility] g/dL [facility] L ab (Internal) : [address] ? ? S ? Alb 3.9 g/dL 3.5-5.0 Final [facility] g/dL [facility] L ab (Internal) : [address] ? ? S ? Tbil 0.5 mg/dL 0.2-1.3 Final [facility] mg/dL [facility] L ab (Internal) : [address] t ? ? S High Alp 179 U/L 38-126 Final [facility] U/L [facility] L ab (Internal) : [address] t ? ? S ? Alt 33 U/L 9-52 U/L Final [facility] (Sgpt) [facility] L ab (Internal) : [address] t ? ? S ? Ast 21 U/L 14-36 U/L Final [place] (Sgot) [facility] Hospital L ab (Internal) : [address] 04/08/2017 [facility] ? [id number] see below ? Final No rth [place] [address] 02:48 Hospital Lab pm (Internal) : [address] 04/08/2017 Bence Serrato UR ? Total 150 mg/dL ? Final [place] Protein, 24-Hour Protein, [facility] Urine Urine Hospital L ab (Internal) : [address] ? ? UR High 24HR 2550 <150 Final [place] Calc mg/24h mg/24h [facility] L ab (Internal) : [address], [place] ? ? UR ? Albumin 62.5 % ? Final [facility] Hospital L ab (Internal) : [address], [place] ? ? UR ? Globulin 37.5 ? Final [facility] L ab (Internal) : [address] [place] ? ? UR ? Comments see ? Final [facility] Hospital L ab (Internal) : [address] [place] ? ? UR ? Immunoty interpret ? Final joaquin Alvarez: [facility] Urine Hospital L ab (Internal) : [address] [place] Past Encounters 09/08/2020 Hypertensive Disorder; End-stage Renal D isease; Multiple Myeloma; Paroxysmal Atrial Fibrillation Eugenia Breaux MD: [address] [place] [phone], Ph. 04/30/2020 Hypertensive Disorder; Multiple Myeloma Eugenia Breaux MD: [address] [place] [phone], Ph. 12/26/2019 Hypertensive Disorder; Type 2 Diabetes M ellitus without Complication; End-stage Renal Disease; Paroxysmal Atrial Fibrillation; Multiple Myeloma Eugenia Breaux MD: [address] [place] [phone], Ph. 07/20/2019 End-stage Renal Disease; Type 2 Diabetes Mellitus without Complication; Pain in Left Knee Eugenia Breaux MD: [address] [place] [phone], Ph. Social History Tobacco Smoking Status Never Smoker Vaccine List Vaccine Type influenza, injectable, quadrivalent 08/01/2020 pneumococcal conjugate PCV 13 07/06/2018?0.5 mL pneumococcal polysaccharide PPV23 09/07/2018?0.5 mL Tdap 03/19/2019?0.5 mL Plan of Care Reminders Provider Appointments None ? ? recorded. Lab None ? ? recorded. Referral None ? ? recorded. Procedures None ? ? recorded. Surgeries None ? ? recorded. Imaging None ? ? recorded. Vitals 09/08/2020 01:40PM Follow Up 20 Height Weight BMI Blood Pressure 154.94 cm 55.08 kg 22.9 kg/m2 110/70 mm[Hg] 04/30/2020 12:40PM Acute 20 Height Weight BMI Blood Pressure 154.94 cm 54.66 kg 22.8 kg/m2 138/88 mm[Hg] 12/26/2019 02:20PM Follow Up 20 Height Weight BMI Blood Pressure 154.94 cm 54.43 kg 22.7 kg/m2 140/100 mm[Hg] 07/20/2019 01:40PM Follow Up 20 Height Weight BMI Blood Pressure 154.94 cm 51.28 kg 21.4 kg/m2 100/56 mm[Hg] 03/19/2019 02:20PM Follow Up 20 Height Weight BMI Blood Pressure 154.94 cm 50.09 kg 20.9 kg/m2 90/60 mm[Hg] 11/20/2018 02:40PM Follow Up 20 Height Weight BMI Blood Pressure 154.94 cm 48.54 kg 20.2 kg/m2 110/70 mm[Hg] 10/19/2018 08:30AM Acute 15 Height Weight BMI 154.94 cm 50.21 kg 20.9 kg/m2 09/29/2018 03:20PM Acute 20 Weight Blood Pressure 49.47 kg 94/70 mm[Hg] 09/07/2018 11:20AM Follow Up 20 Weight Blood Pressure 50.58 kg 118/60 mm[Hg] 07/06/2018 01:40PM Follow Up 20 Weight Blood Pressure 48.17 kg 90/62 mm[Hg] 02/09/2018 Weight Blood Pressure 47.94 kg 148/90 mm[Hg] 01/11/2018 Weight Blood Pressure 48.94 kg 105/70 mm[Hg] 01/09/2018 Weight Blood Pressure 49.17 kg 110/82 mm[Hg] 12/22/2017 Weight Blood Pressure 51.3 kg 128/60 mm[Hg] 08/18/2017 Weight Blood Pressure 58.51 kg 156/72 mm[Hg] 06/08/2017 Weight Blood Pressure 65.32 kg 152/72 mm[Hg] 05/09/2017 Weight Blood Pressure 58.06 kg 130/60 mm[Hg] 04/15/2017 Weight Blood Pressure 54.25 kg 200/100 mm[Hg] 11/18/2016 Weight Blood Pressure 59.6 kg (1) 180/100 mm[Hg] (2) 180/90 mm[Hg] 10/04/2016 Height Weight Blood Pressure 153.67 cm 60.33 kg 160/90 mm[Hg] 07/08/2016 Weight Blood Pressure 62.23 kg 194/84 mm[Hg] 03/29/2016 Height Weight Blood Pressure 153.67 cm 61.73 kg (1) 224/98 mm[Hg] (2) 146/92 mm[Hg] 09/29/2015 Weight Blood Pressure 62.28 kg 150/78 mm[Hg] 03/27/2015 Height Weight Blood Pressure 153.67 cm 61.33 kg 128/70 mm[Hg] 09/26/2014 Height Weight Blood Pressure 153.67 cm 61.6 kg (1) 184/80 mm[Hg] (2) 180/72 mm[Hg] 03/25/2014 Weight Blood Pressure 61.32 kg 144/78 mm[Hg] 09/24/2013 Height Weight Blood Pressure 153.67 cm 61.72 kg 150/70 mm[Hg] 03/21/2013 Height Weight Blood Pressure 153.67 cm 60.81 kg 144/70 mm[Hg] 09/11/2012 Weight Blood Pressure 62.41 kg 148/62 mm[Hg] 08/18/2012 Weight Blood Pressure 63.3 kg 142/82 mm[Hg] 03/13/2012 Height Weight Blood Pressure 154.31 cm 63.76 kg 122/68 mm[Hg] 09/13/2011 Weight Blood Pressure 62.14 kg 128/70 mm[Hg] 03/08/2011 Height Weight Blood Pressure 154.31 cm 62.14 kg 128/60 mm[Hg] 12/02/2010 Height Weight Blood Pressure 154.31 cm 62.46 kg 148/68 mm[Hg] 08/31/2010 Weight Blood Pressure 63.64 kg 114/64 mm[Hg] 05/28/2010 Weight Blood Pressure 68.04 kg 174/70 mm[Hg] 04/24/2010 Weight Blood Pressure 71.21 kg 154/80 mm[Hg] 04/15/2010 Weight Blood Pressure 71.21 kg 160/80 mm[Hg] 04/02/2010 Height Weight Blood Pressure 156.21 cm 72.57 kg 164/100 mm[Hg]
[2020-11-06 06:36] LABS: Abs Immature Grans 0.02 10^3/uL (0.0-0.06); Absolute Basophil Count 0.02 10^3/uL (0.0-0.2); Absolute Eosinophil Count 0.18 10^3/uL (0.0-0.7); Absolute Lymphocyte Count 0.92 10^3/uL (1.2-3.4); Absolute Monocyte Count 0.42 10^3/uL (0.1-0.8); Absolute Neutrophil Count 3.96 10^3/uL (1.2-6.7); Basophils % 0.4; Eosinophils % 3.3; HCT 28.1 % (36.0-46.0); Immature Grans % 0.4; Lymphocytes % 16.7; MCH 33.5 pg (27.0-33.0); MCV 104.5 fL (80-95); MPV 10.3 fL (8.0-11.0); Monocytes % 7.6; Neutrophils % 71.6; Nucleated RBC 0 %; Platelet Count 136 10^3/uL (130-400); RBC 2.69 10^6/uL (3.93-5.22); RDW 14.4 % (11.7-14.6); RDW-SD 54.5 fL; WBC 5.52 10^3/uL (4.4-10.8)
[2020-11-06 06:48] LABS: ALT 28 U/L (14-59); AST 17 U/L (15-37); Albumin 3.6 g/dL (3.4-5.0); Alkaline Phosphatase 91 U/L (46-116); Anion Gap 9.7 mmol/L (3-11); Bilirubin, Total 0.5 mg/dL (0.2-1.0); CO2 23.3 mmol/L (21.0-32.0); Calcium 8.5 mg/dL (8.5-10.1); Chloride 105 mmol/L (98-107); Estimated GFR 6.73 (mL/min/1.73m2); Glucose 123 mg/dL (74-106); Sodium 138 mmol/L (136-145); Total Protein 6.7 g/dL (6.4-8.2)
[2020-11-06 07:52] LABS: BUN 89 mg/dL (7-18); CREATININE 6.05 mg/dL (0.55-1.02)
[2020-11-10 10:56] LABS: IgA 78 mg/dL (85-499); IgG 587 mg/dL (610-1,616); IgM 217 mg/dL (35-242); Kappa Free Light Chain 20.94 mg/dL (0.33-1.94); Lambda Free Light Chain 4.81 mg/dL (0.57-2.63)
[2020-11-10 13:54] LABS: Albumin 64.9 % (55.8-66.1); Total Protein 6.3 g/dL (6.3-8.2)
== END 2020-11-06 06:41 ==
LOC: LBN 06:21
PROVIDERS: PCP Family Medicine; Visit Provider Internal Medicine Hematology & Oncology
DX: C90.00 Multiple myeloma not having achieved remission (principal)
CPT/HCPCS: 80053; 82784; 83883; 84165; 85025

== ENCOUNTER 2020-12-12 07:07 | Outpatient (REF) | payer OTHER, SELFPAY ==
[2020-12-12 07:23] LABS: Abs Immature Grans 0.02 10^3/uL (0.0-0.06); Absolute Basophil Count 0.03 10^3/uL (0.0-0.2); Absolute Eosinophil Count 0.12 10^3/uL (0.0-0.7); Absolute Lymphocyte Count 0.69 10^3/uL (1.2-3.4); Absolute Monocyte Count 0.37 10^3/uL (0.1-0.8); Absolute Neutrophil Count 4.55 10^3/uL (1.2-6.7); Basophils % 0.5; Eosinophils % 2.1; HCT 33.9 % (36.0-46.0); HGB 10.9 g/dL (11.2-15.7); Immature Grans % 0.3; Lymphocytes % 11.9; MCH 35.6 pg (27.0-33.0); MCHC 32.2 % (32.0-36.0); MCV 110.8 fL (80-95); MPV 10.5 fL (8.0-11.0); Monocytes % 6.4; Neutrophils % 78.8; Nucleated RBC 0 %; Platelet Count 175 10^3/uL (130-400); RBC 3.06 10^6/uL (3.93-5.22); RDW 15.6 % (11.7-14.6); RDW-SD 64.2 fL; WBC 5.78 10^3/uL (4.4-10.8)
[2020-12-12 07:44] LABS: ALT 26 U/L (14-59); AST 18 U/L (15-37); Albumin 3.6 g/dL (3.4-5.0); Alkaline Phosphatase 93 U/L (46-116); Anion Gap 10.5 mmol/L (3-11); BUN 55 mg/dL (7-18); Bilirubin, Total 0.5 mg/dL (0.2-1.0); CO2 24.5 mmol/L (21.0-32.0); Calcium 8.8 mg/dL (8.5-10.1); Chloride 105 mmol/L (98-107); Estimated GFR 7.66 (mL/min/1.73m2); Glucose 131 mg/dL (74-106); Potassium 4.5 mmol/L (3.5-5.1); Sodium 140 mmol/L (136-145); Total Protein 6.9 g/dL (6.4-8.2)
[2020-12-12 08:21] LABS: CREATININE 5.4 mg/dL (0.55-1.02)
[2020-12-15 10:19] LABS: IgA 87 mg/dL (85-499); IgG 662 mg/dL (610-1,616); IgM 223 mg/dL (35-242); Kappa Free Light Chain 20.41 mg/dL (0.33-1.94); Lambda Free Light Chain 4.62 mg/dL (0.57-2.63)
[2020-12-15 13:25] LABS: Albumin 66.2 % (55.8-66.1); Total Protein 6.6 g/dL (6.3-8.2)
== END 2020-12-12 07:27 ==
LOC: LBN 07:07
PROVIDERS: PCP Family Medicine; Visit Provider Internal Medicine Hematology & Oncology
DX: C90.00 Multiple myeloma not having achieved remission (principal)
CPT/HCPCS: 80053; 82784; 83883; 84165; 85025

== ENCOUNTER 2020-12-29 08:29 | Outpatient (REF) | payer OTHER, SELFPAY ==
[2020-12-29 08:56] LABS: Abs Immature Grans 0.01 10^3/uL (0.0-0.06); Absolute Basophil Count 0.03 10^3/uL (0.0-0.2); Absolute Eosinophil Count 0.15 10^3/uL (0.0-0.7); Absolute Lymphocyte Count 0.84 10^3/uL (1.2-3.4); Absolute Monocyte Count 0.32 10^3/uL (0.1-0.8); Absolute Neutrophil Count 4.33 10^3/uL (1.2-6.7); Basophils % 0.5; Eosinophils % 2.6; HCT 34.8 % (36.0-46.0); HGB 11.5 g/dL (11.2-15.7); Immature Grans % 0.2; Lymphocytes % 14.8; MCH 34.5 pg (27.0-33.0); MCV 104.5 fL (80-95); MPV 11.8 fL (8.0-11.0); Monocytes % 5.6; Neutrophils % 76.3; Nucleated RBC 0 %; Platelet Count 134 10^3/uL (130-400); RBC 3.33 10^6/uL (3.93-5.22); RDW 13.2 % (11.7-14.6); RDW-SD 50.6 fL; WBC 5.68 10^3/uL (4.4-10.8)
[2020-12-29 09:23] LABS: ALT 32 U/L (14-59); AST 22 U/L (15-37); Albumin 3.5 g/dL (3.4-5.0); Alkaline Phosphatase 90 U/L (46-116); Anion Gap 10.4 mmol/L (3-11); BUN 79 mg/dL (7-18); Bilirubin, Total 0.3 mg/dL (0.2-1.0); CO2 24.6 mmol/L (21.0-32.0); Calcium 8.9 mg/dL (8.5-10.1); Chloride 103 mmol/L (98-107); Estimated GFR 7.83 (mL/min/1.73m2); Glucose 155 mg/dL (74-106); Potassium 4.3 mmol/L (3.5-5.1); Sodium 138 mmol/L (136-145); Total Protein 6.7 g/dL (6.4-8.2)
[2020-12-29 09:30] LABS: CREATININE 5.3 mg/dL (0.55-1.02)
[2020-12-30 10:51] LABS: Albumin 65.6 % (55.8-66.1); Total Protein 6.2 g/dL (6.3-8.2)
[2020-12-30 12:54] LABS: IgA 82 mg/dL (85-499); IgG 594 mg/dL (610-1,616); IgM 210 mg/dL (35-242); Kappa Free Light Chain 25.62 mg/dL (0.33-1.94); Lambda Free Light Chain 4.65 mg/dL (0.57-2.63)
== END 2020-12-29 08:30 | disposition home or self-care (01) ==
LOC: LBN 08:29
PROVIDERS: PCP Family Medicine; Visit Provider Internal Medicine Hematology & Oncology
DX: C90.00 Multiple myeloma not having achieved remission (principal)
CPT/HCPCS: 80053; 82784; 83883; 84165; 85025

== ENCOUNTER 2021-01-23 06:33 | Outpatient (REF) | payer OTHER, SELFPAY ==
[2021-01-23 08:58] LABS: Abs Immature Grans 0.03 10^3/uL (0.0-0.06); Absolute Basophil Count 0.02 10^3/uL (0.0-0.2); Absolute Eosinophil Count 0.18 10^3/uL (0.0-0.7); Absolute Lymphocyte Count 0.76 10^3/uL (1.2-3.4); Basophils % 0.4; Eosinophils % 3.2; HCT 30.8 % (36.0-46.0); Immature Grans % 0.5; Lymphocytes % 13.4; MCH 33.7 pg (27.0-33.0); MCHC 32.5 % (32.0-36.0); MCV 103.7 fL (80-95); MPV 11.8 fL (8.0-11.0); Neutrophils % 75.5; Nucleated RBC 0 %; Platelet Count 124 10^3/uL (130-400); RBC 2.97 10^6/uL (3.93-5.22); RDW-SD 48.9 fL; WBC 5.69 10^3/uL (4.4-10.8)
== END 2021-01-23 06:34 | disposition home or self-care (01) ==
LOC: LBN 06:33
PROVIDERS: PCP Family Medicine; Visit Provider Internal Medicine Hematology & Oncology
DX: C90.00 Multiple myeloma not having achieved remission (principal)
CPT/HCPCS: 85025

== ENCOUNTER 2021-02-06 07:03 | Outpatient (REF) | payer OTHER, SELFPAY ==
[2021-02-06 07:46] LABS: Abs Immature Grans 0.03 10^3/uL (0.0-0.06); Absolute Basophil Count 0.03 10^3/uL (0.0-0.2); Absolute Eosinophil Count 0.11 10^3/uL (0.0-0.7); Absolute Lymphocyte Count 0.84 10^3/uL (1.2-3.4); Absolute Monocyte Count 0.38 10^3/uL (0.1-0.8); Basophils % 0.4; Eosinophils % 1.4; HCT 29.9 % (36.0-46.0); HGB 9.6 g/dL (11.2-15.7); Immature Grans % 0.4; Lymphocytes % 10.9; MCH 33.7 pg (27.0-33.0); MCHC 32.1 % (32.0-36.0); MCV 104.9 fL (80-95); MPV 10.6 fL (8.0-11.0); Monocytes % 4.9; Nucleated RBC 0 %; Platelet Count 146 10^3/uL (130-400); RBC 2.85 10^6/uL (3.93-5.22); RDW 13.7 % (11.7-14.6); RDW-SD 51.4 fL; WBC 7.69 10^3/uL (4.4-10.8)
[2021-02-06 07:57] LABS: ALT 31 U/L (14-59); AST 20 U/L (15-37); Albumin 3.2 g/dL (3.4-5.0); Alkaline Phosphatase 76 U/L (46-116); Anion Gap 4.9 mmol/L (3-11); BUN 44 mg/dL (7-18); Bilirubin, Total 0.4 mg/dL (0.2-1.0); CO2 30.1 mmol/L (21.0-32.0); Calcium 8.4 mg/dL (8.5-10.1); Chloride 106 mmol/L (98-107); Estimated GFR 11.15 (mL/min/1.73m2); Glucose 145 mg/dL (74-106); Potassium 3.7 mmol/L (3.5-5.1); Sodium 141 mmol/L (136-145); Total Protein 6.3 g/dL (6.4-8.2)
[2021-02-06 08:09] LABS: CREATININE 3.9 mg/dL (0.55-1.02)
[2021-02-09 10:14] LABS: IgA 73 mg/dL (85-499); IgG 519 mg/dL (610-1,616); IgM 210 mg/dL (35-242); Kappa Free Light Chain 19.89 mg/dL (0.33-1.94); Lambda Free Light Chain 3.65 mg/dL (0.57-2.63)
[2021-02-09 15:55] LABS: Albumin 62.4 % (55.8-66.1); Comment (See Note); Total Protein 5.8 g/dL (6.3-8.2)
[2021-02-09 16:38] LABS: Immunotyping, Serum (See Note)
== END 2021-02-06 07:04 | disposition home or self-care (01) ==
LOC: LBN 07:03
PROVIDERS: PCP Family Medicine; Visit Provider Internal Medicine Hematology & Oncology
DX: C90.00 Multiple myeloma not having achieved remission (principal)
CPT/HCPCS: 80053; 82784; 83883; 84165; 85025; 86320

== ENCOUNTER 2021-03-20 06:43 | Outpatient (REF) | payer OTHER, SELFPAY ==
[2021-03-20 06:52] LABS: Abs Immature Grans 0.02 10^3/uL (0.0-0.06); Absolute Basophil Count 0.03 10^3/uL (0.0-0.2); Absolute Eosinophil Count 0.09 10^3/uL (0.0-0.7); Absolute Lymphocyte Count 1.05 10^3/uL (1.2-3.4); Absolute Monocyte Count 0.37 10^3/uL (0.1-0.8); Absolute Neutrophil Count 5.09 10^3/uL (1.2-6.7); Basophils % 0.5; Eosinophils % 1.4; HCT 32.6 % (36.0-46.0); HGB 10.7 g/dL (11.2-15.7); Immature Grans % 0.3; Lymphocytes % 15.8; MCH 33.2 pg (27.0-33.0); MCHC 32.8 % (32.0-36.0); MCV 101.2 fL (80-95); Monocytes % 5.6; Neutrophils % 76.4; Nucleated RBC 0 %; Platelet Count 118 10^3/uL (130-400); RBC 3.22 10^6/uL (3.93-5.22); RDW 14.7 % (11.7-14.6); RDW-SD 55.2 fL; WBC 6.65 10^3/uL (4.4-10.8)
[2021-03-20 06:59] LABS: ALT 30 U/L (14-59); AST 16 U/L (15-37); Albumin 3.5 g/dL (3.4-5.0); Alkaline Phosphatase 71 U/L (46-116); BUN 76 mg/dL (7-18); Bilirubin, Total 0.4 mg/dL (0.2-1.0); Calcium 8.9 mg/dL (8.5-10.1); Chloride 109 mmol/L (98-107); Estimated GFR 6.53 (mL/min/1.73m2); Glucose 145 mg/dL (74-106); Potassium 4.7 mmol/L (3.5-5.1); Sodium 144 mmol/L (136-145); Total Protein 6.4 g/dL (6.4-8.2)
[2021-03-20 07:08] LABS: CREATININE 6.2 mg/dL (0.55-1.02)
[2021-03-23 10:22] LABS: IgA 73 mg/dL (85-499); IgG 547 mg/dL (610-1,616); IgM 211 mg/dL (35-242); Kappa Free Light Chain 33.49 mg/dL (0.33-1.94); Lambda Free Light Chain 4.04 mg/dL (0.57-2.63)
[2021-03-23 14:24] LABS: Total Protein 5.9 g/dL (6.3-8.2)
== END 2021-03-20 06:44 | disposition home or self-care (01) ==
LOC: LBN 06:43
PROVIDERS: PCP Family Medicine; Visit Provider Internal Medicine Hematology & Oncology
DX: C90.00 Multiple myeloma not having achieved remission (principal)
CPT/HCPCS: 80053; 82784; 83883; 84165; 85025

== ENCOUNTER 2021-05-01 16:33 | Outpatient (REF) | payer OTHER, SELFPAY ==
[2021-05-01 09:01] LABS: Abs Immature Grans 0.03 10^3/uL (0.0-0.06); Absolute Basophil Count 0.04 10^3/uL (0.0-0.2); Absolute Eosinophil Count 0.12 10^3/uL (0.0-0.7); Absolute Lymphocyte Count 1.07 10^3/uL (1.2-3.4); Absolute Monocyte Count 0.37 10^3/uL (0.1-0.8); Absolute Neutrophil Count 4.92 10^3/uL (1.2-6.7); Basophils % 0.6; Eosinophils % 1.8; HCT 28.1 % (36.0-46.0); HGB 9.1 g/dL (11.2-15.7); Immature Grans % 0.5; Lymphocytes % 16.3; MCH 33.2 pg (27.0-33.0); MCHC 32.4 % (32.0-36.0); MCV 102.6 fL (80-95); MPV 10.7 fL (8.0-11.0); Monocytes % 5.6; Neutrophils % 75.2; Nucleated RBC 0 %; Platelet Count 128 10^3/uL (130-400); RBC 2.74 10^6/uL (3.93-5.22); RDW 14.8 % (11.7-14.6); RDW-SD 56.3 fL; WBC 6.55 10^3/uL (4.4-10.8)
[2021-05-01 09:11] LABS: ALT 33 U/L (14-59); AST 19 U/L (15-37); Albumin 3.5 g/dL (3.4-5.0); Alkaline Phosphatase 67 U/L (46-116); Anion Gap 10.9 mmol/L (3-11); BUN 71 mg/dL (7-18); Bilirubin, Total 0.3 mg/dL (0.2-1.0); CO2 26.1 mmol/L (21.0-32.0); Chloride 108 mmol/L (98-107); Estimated GFR 7.05 (mL/min/1.73m2); Glucose 147 mg/dL (74-106); Potassium 4.4 mmol/L (3.5-5.1); Sodium 145 mmol/L (136-145); Total Protein 6.7 g/dL (6.4-8.2)
[2021-05-01 09:21] LABS: CREATININE 5.8 mg/dL (0.55-1.02)
[2021-05-04 11:59] LABS: IgA 57 mg/dL (85-499); IgG 508 mg/dL (610-1,616); IgM 201 mg/dL (35-242); Kappa Free Light Chain 41.51 mg/dL (0.33-1.94); Lambda Free Light Chain 4.48 mg/dL (0.57-2.63)
[2021-05-04 13:24] LABS: Comment (See Note); Total Protein 6.3 g/dL (6.3-8.2)
[2021-05-04 15:57] LABS: Immunotyping, Serum (See Note)
== END 2021-05-01 16:34 | disposition home or self-care (01) ==
LOC: LBN 16:33
PROVIDERS: PCP Family Medicine; Visit Provider Internal Medicine Hematology & Oncology
DX: C90.00 Multiple myeloma not having achieved remission (principal)
CPT/HCPCS: 80053; 82784; 83883; 84165; 85025; 86320

== ENCOUNTER 2021-06-01 06:46 | Outpatient (REF) | payer OTHER, SELFPAY ==
[2021-06-01 07:04] LABS: Abs Immature Grans 0.05 10^3/uL (0.0-0.06); Absolute Basophil Count 0.02 10^3/uL (0.0-0.2); Absolute Eosinophil Count 0.11 10^3/uL (0.0-0.7); Absolute Neutrophil Count 3.69 10^3/uL (1.2-6.7); Basophils % 0.4; Eosinophils % 2.1; HCT 29.4 % (36.0-46.0); HGB 9.6 g/dL (11.2-15.7); Lymphocytes % 15.5; MCH 33.2 pg (27.0-33.0); MCHC 32.7 % (32.0-36.0); MCV 101.7 fL (80-95); MPV 10.9 fL (8.0-11.0); Monocytes % 9.7; Neutrophils % 71.3; Nucleated RBC 0 %; Platelet Count 128 10^3/uL (130-400); RBC 2.89 10^6/uL (3.93-5.22); RDW 14.6 % (11.7-14.6); RDW-SD 55.2 fL; WBC 5.17 10^3/uL (4.4-10.8)
[2021-06-01 07:18] LABS: ALT 27 U/L (14-59); AST 15 U/L (15-37); Albumin 3.5 g/dL (3.4-5.0); Alkaline Phosphatase 68 U/L (46-116); Anion Gap 8.4 mmol/L (3-11); Bilirubin, Total 0.4 mg/dL (0.2-1.0); CO2 26.6 mmol/L (21.0-32.0); Calcium 8.5 mg/dL (8.5-10.1); Chloride 104 mmol/L (98-107); Glucose 130 mg/dL (74-106); Potassium 4.9 mmol/L (3.5-5.1); Sodium 139 mmol/L (136-145); Total Protein 6.4 g/dL (6.4-8.2)
[2021-06-01 07:43] LABS: BUN 82 mg/dL (7-18); CREATININE 5.7 mg/dL (0.55-1.02)
[2021-06-02 09:51] LABS: IgA 57 mg/dL (85-499); IgG 469 mg/dL (610-1,616); IgM 180 mg/dL (35-242); Kappa Free Light Chain 30.41 mg/dL (0.33-1.94); Lambda Free Light Chain 3.68 mg/dL (0.57-2.63)
[2021-06-02 12:58] LABS: Albumin 68.2 % (55.8-66.1)
== END 2021-06-01 06:47 | disposition home or self-care (01) ==
LOC: LBN 06:46
PROVIDERS: PCP Family Medicine; Visit Provider Internal Medicine Hematology & Oncology
DX: C90.00 Multiple myeloma not having achieved remission (principal)
CPT/HCPCS: 80053; 82784; 83883; 84165; 85025

== ENCOUNTER 2021-06-29 06:28 | Outpatient (REF) | payer OTHER, SELFPAY ==
[2021-06-29 06:57] LABS: Abs Immature Grans 0.03 10^3/uL (0.0-0.06); Absolute Basophil Count 0.04 10^3/uL (0.0-0.2); Absolute Lymphocyte Count 1.06 10^3/uL (1.2-3.4); Absolute Monocyte Count 0.51 10^3/uL (0.1-0.8); Absolute Neutrophil Count 3.85 10^3/uL (1.2-6.7); Basophils % 0.7; Eosinophils % 1.8; HCT 31.4 % (36.0-46.0); Immature Grans % 0.5; MCH 32.9 pg (27.0-33.0); MCHC 31.8 % (32.0-36.0); MCV 103.3 fL (80-95); MPV 11.6 fL (8.0-11.0); Monocytes % 9.1; Neutrophils % 68.9; Nucleated RBC 0 %; Platelet Count 133 10^3/uL (130-400); RBC 3.04 10^6/uL (3.93-5.22); RDW 13.4 % (11.7-14.6); RDW-SD 50.8 fL; WBC 5.59 10^3/uL (4.4-10.8)
[2021-06-29 07:09] LABS: ALT 25 U/L (14-59); AST 16 U/L (15-37); Albumin 3.5 g/dL (3.4-5.0); Alkaline Phosphatase 71 U/L (46-116); Anion Gap 10.4 mmol/L (3-11); Bilirubin, Total 0.4 mg/dL (0.2-1.0); CO2 23.6 mmol/L (21.0-32.0); Calcium 8.3 mg/dL (8.5-10.1); Chloride 106 mmol/L (98-107); Estimated GFR 6.78 (mL/min/1.73m2); Glucose 137 mg/dL (74-106); Potassium 4.6 mmol/L (3.5-5.1); Sodium 140 mmol/L (136-145); Total Protein 6.3 g/dL (6.4-8.2)
[2021-06-29 08:08] LABS: BUN 85 mg/dL (7-18)
[2021-06-30 09:16] LABS: Kappa Free Light Chain 27.76 mg/dL (0.33-1.94)
[2021-06-30 09:24] LABS: IgA 56 mg/dL (85-499); IgG 437 mg/dL (610-1,616); IgM 171 mg/dL (35-242)
[2021-06-30 13:43] LABS: Albumin 69.3 % (55.8-66.1); Total Protein 5.9 g/dL (6.3-8.2)
== END 2021-06-29 06:29 | disposition home or self-care (01) ==
LOC: LBN 06:28
PROVIDERS: PCP Family Medicine; Visit Provider Internal Medicine Hematology & Oncology
DX: C90.00 Multiple myeloma not having achieved remission (principal)
CPT/HCPCS: 80053; 82784; 83883; 84165; 85025

== ENCOUNTER 2021-07-27 06:17 | Outpatient (REF) | payer OTHER, SELFPAY ==
[2021-07-27 09:23] LABS: Abs Immature Grans 0.03 10^3/uL (0.0-0.06); Absolute Basophil Count 0.04 10^3/uL (0.0-0.2); Absolute Eosinophil Count 0.11 10^3/uL (0.0-0.7); Absolute Monocyte Count 0.44 10^3/uL (0.1-0.8); Absolute Neutrophil Count 4.33 10^3/uL (1.2-6.7); Basophils % 0.7; Eosinophils % 1.9; HCT 31.4 % (36.0-46.0); HGB 10.1 g/dL (11.2-15.7); Immature Grans % 0.5; Lymphocytes % 15.4; MCH 33.9 pg (27.0-33.0); MCHC 32.2 % (32.0-36.0); MCV 105.4 fL (80-95); MPV 11.2 fL (8.0-11.0); Monocytes % 7.5; Nucleated RBC 0 %; Platelet Count 153 10^3/uL (130-400); RBC 2.98 10^6/uL (3.93-5.22); RDW 14.7 % (11.7-14.6); RDW-SD 57.1 fL; WBC 5.85 10^3/uL (4.4-10.8)
[2021-07-27 09:32] LABS: ALT 27 U/L (14-59); AST 16 U/L (15-37); Albumin 3.6 g/dL (3.4-5.0); Alkaline Phosphatase 66 U/L (46-116); Anion Gap 11.5 mmol/L (3-11); Bilirubin, Total 0.4 mg/dL (0.2-1.0); CO2 23.5 mmol/L (21.0-32.0); Calcium 8.5 mg/dL (8.5-10.1); Chloride 108 mmol/L (98-107); Estimated GFR 6.91 (mL/min/1.73m2); Glucose 141 mg/dL (74-106); Potassium 4.7 mmol/L (3.5-5.1); Sodium 143 mmol/L (136-145); Total Protein 6.2 g/dL (6.4-8.2)
[2021-07-27 09:47] LABS: BUN 88 mg/dL (7-18); CREATININE 5.9 mg/dL (0.55-1.02)
[2021-07-27 10:01] LABS: Diff Comment Diff Reviewed; Macrocytosis 1+
[2021-07-27 10:02] LABS: Poikilocytes 1+
[2021-07-28 10:12] LABS: IgA 51 mg/dL (85-499); IgG 379 mg/dL (610-1,616); IgM 165 mg/dL (35-242); Kappa Free Light Chain 23.84 mg/dL (0.33-1.94)
[2021-07-28 14:31] LABS: Albumin 70.3 % (55.8-66.1); Total Protein 5.7 g/dL (6.3-8.2)
== END 2021-07-27 06:18 | disposition home or self-care (01) ==
LOC: LBN 06:17
PROVIDERS: PCP Family Medicine; Visit Provider Internal Medicine Hematology & Oncology
DX: C90.00 Multiple myeloma not having achieved remission (principal)
CPT/HCPCS: 80053; 82784; 83883; 84165; 85025

== ENCOUNTER 2021-08-24 06:28 | Outpatient (REF) | payer OTHER, SELFPAY ==
[2021-08-24 06:43] LABS: Abs Immature Grans 0.03 10^3/uL (0.0-0.06); Absolute Basophil Count 0.02 10^3/uL (0.0-0.2); Absolute Eosinophil Count 0.06 10^3/uL (0.0-0.7); Absolute Lymphocyte Count 0.67 10^3/uL (1.2-3.4); Absolute Monocyte Count 0.38 10^3/uL (0.1-0.8); Absolute Neutrophil Count 4.43 10^3/uL (1.2-6.7); Basophils % 0.4; Eosinophils % 1.1; HCT 32.5 % (36.0-46.0); HGB 10.5 g/dL (11.2-15.7); Immature Grans % 0.5; MCH 33.7 pg (27.0-33.0); MCHC 32.3 % (32.0-36.0); MCV 104.2 fL (80-95); MPV 11.3 fL (8.0-11.0); Monocytes % 6.8; Neutrophils % 79.2; Nucleated RBC 0 %; Platelet Count 115 10^3/uL (130-400); RBC 3.12 10^6/uL (3.93-5.22); RDW 14.6 % (11.7-14.6); RDW-SD 55.1 fL; WBC 5.59 10^3/uL (4.4-10.8)
[2021-08-24 06:58] LABS: ALT 26 U/L (14-59); AST 15 U/L (15-37); Albumin 3.5 g/dL (3.4-5.0); Alkaline Phosphatase 65 U/L (46-116); Anion Gap 11.1 mmol/L (3-11); BUN 70 mg/dL (7-18); Bilirubin, Total 0.4 mg/dL (0.2-1.0); CO2 24.9 mmol/L (21.0-32.0); Calcium 8.3 mg/dL (8.5-10.1); Chloride 105 mmol/L (98-107); Estimated GFR 7.66 (mL/min/1.73m2); Glucose 124 mg/dL (74-106); Potassium 4.3 mmol/L (3.5-5.1); Sodium 141 mmol/L (136-145)
[2021-08-24 08:19] LABS: CREATININE 5.4 mg/dL (0.55-1.02)
[2021-08-25 10:09] LABS: IgA 42 mg/dL (85-499); IgG 365 mg/dL (610-1,616); IgM 156 mg/dL (35-242); Kappa Free Light Chain 22.78 mg/dL (0.33-1.94); Lambda Free Light Chain 3.69 mg/dL (0.57-2.63)
[2021-08-25 14:15] LABS: Albumin 72.6 % (55.8-66.1); Total Protein 5.9 g/dL (6.3-8.2)
== END 2021-08-24 06:29 | disposition home or self-care (01) ==
LOC: LBN 06:28
PROVIDERS: PCP Family Medicine; Visit Provider Internal Medicine Hematology & Oncology
DX: C90.00 Multiple myeloma not having achieved remission (principal)
CPT/HCPCS: 80053; 82784; 83883; 84165; 85025

== ENCOUNTER 2021-09-21 06:32 | Outpatient (REF) | payer MEDICARE, SELFPAY ==
[2021-09-21 07:38] LABS: Abs Immature Grans 0.02 10^3/uL (0.0-0.06); Absolute Basophil Count 0.03 10^3/uL (0.0-0.2); Absolute Eosinophil Count 0.09 10^3/uL (0.0-0.7); Absolute Lymphocyte Count 0.79 10^3/uL (1.2-3.4); Absolute Monocyte Count 0.45 10^3/uL (0.1-0.8); Absolute Neutrophil Count 4.42 10^3/uL (1.2-6.7); Basophils % 0.5; Eosinophils % 1.6; HCT 32.2 % (36.0-46.0); HGB 10.4 g/dL (11.2-15.7); Immature Grans % 0.3; Lymphocytes % 13.6; MCH 33.2 pg (27.0-33.0); MCHC 32.3 % (32.0-36.0); MCV 102.9 fL (80-95); MPV 11.7 fL (8.0-11.0); Monocytes % 7.8; Neutrophils % 76.2; Nucleated RBC 0 %; Platelet Count 116 10^3/uL (130-400); RBC 3.13 10^6/uL (3.93-5.22); RDW 14.8 % (11.7-14.6)
[2021-09-21 07:53] LABS: ALT 30 U/L (14-59); AST 13 U/L (15-37); Albumin 3.6 g/dL (3.4-5.0); Alkaline Phosphatase 61 U/L (46-116); Anion Gap 9.6 mmol/L (3-11); Bilirubin, Total 0.5 mg/dL (0.2-1.0); CO2 26.4 mmol/L (21.0-32.0); Calcium 8.4 mg/dL (8.5-10.1); Chloride 108 mmol/L (98-107); Estimated GFR 6.08 (mL/min/1.73m2); Glucose 189 mg/dL (74-106); Potassium 4.6 mmol/L (3.5-5.1); Sodium 144 mmol/L (136-145); Total Protein 6.2 g/dL (6.4-8.2)
[2021-09-21 08:23] LABS: BUN 95 mg/dL (7-18); CREATININE 6.6 mg/dL (0.55-1.02)
[2021-09-22 09:50] LABS: IgA 42 mg/dL (85-499); IgG 390 mg/dL (610-1,616); IgM 168 mg/dL (35-242); Kappa Free Light Chain 28.38 mg/dL (0.33-1.94); Lambda Free Light Chain 4.13 mg/dL (0.57-2.63)
[2021-09-22 14:00] LABS: Albumin 71.5 % (55.8-66.1); Total Protein 5.9 g/dL (6.3-8.2)
== END 2021-09-21 06:33 | disposition home or self-care (01) ==
LOC: LBN 06:32
PROVIDERS: PCP Family Medicine; Visit Provider Internal Medicine Hematology & Oncology
DX: C90.00 Multiple myeloma not having achieved remission (principal)
CPT/HCPCS: 80053; 82784; 83883; 84165; 85025

== ENCOUNTER 2021-10-19 06:29 | Outpatient (REF) | payer MEDICARE, SELFPAY ==
[2021-10-19 07:49] LABS: Abs Immature Grans 0.03 10^3/uL (0.0-0.06); Absolute Basophil Count 0.02 10^3/uL (0.0-0.2); Absolute Eosinophil Count 0.08 10^3/uL (0.0-0.7); Absolute Lymphocyte Count 0.75 10^3/uL (1.2-3.4); Absolute Monocyte Count 0.35 10^3/uL (0.1-0.8); Absolute Neutrophil Count 4.93 10^3/uL (1.2-6.7); Basophils % 0.3; Eosinophils % 1.3; HCT 30.7 % (36.0-46.0); HGB 9.8 g/dL (11.2-15.7); Immature Grans % 0.5; Lymphocytes % 12.2; MCH 33.7 pg (27.0-33.0); MCHC 31.9 % (32.0-36.0); MCV 105.5 fL (80-95); MPV 11.4 fL (8.0-11.0); Monocytes % 5.7; Nucleated RBC 0 %; Platelet Count 124 10^3/uL (130-400); RBC 2.91 10^6/uL (3.93-5.22); RDW 14.2 % (11.7-14.6); RDW-SD 55.3 fL; WBC 6.16 10^3/uL (4.4-10.8)
[2021-10-19 08:30] LABS: ALT 31 U/L (14-59); AST 17 U/L (15-37); Albumin 3.5 g/dL (3.4-5.0); Alkaline Phosphatase 69 U/L (46-116); Anion Gap 10.1 mmol/L (3-11); BUN 57 mg/dL (7-18); Bilirubin, Total 0.4 mg/dL (0.2-1.0); CO2 26.9 mmol/L (21.0-32.0); Calcium 8.3 mg/dL (8.5-10.1); Chloride 104 mmol/L (98-107); Estimated GFR 7.66 (mL/min/1.73m2); Glucose 97 mg/dL (74-106); Potassium 4.4 mmol/L (3.5-5.1); Sodium 141 mmol/L (136-145); Total Protein 6.2 g/dL (6.4-8.2)
[2021-10-19 08:39] LABS: CREATININE 5.4 mg/dL (0.55-1.02)
[2021-10-20 11:08] LABS: IgA 45 mg/dL (85-499); IgG 368 mg/dL (610-1,616); IgM 165 mg/dL (35-242); Kappa Free Light Chain 27.45 mg/dL (0.33-1.94); Lambda Free Light Chain 3.94 mg/dL (0.57-2.63)
[2021-10-20 14:27] LABS: Albumin 69.5 % (55.8-66.1); Total Protein 6.1 g/dL (6.3-8.2)
== END 2021-10-19 06:30 | disposition home or self-care (01) ==
LOC: LBN 06:29
PROVIDERS: PCP Family Medicine; Visit Provider Internal Medicine Hematology & Oncology
DX: C90.00 Multiple myeloma not having achieved remission (principal)
CPT/HCPCS: 80053; 82784; 83883; 84165; 85025

== ENCOUNTER 2021-11-16 06:18 | Outpatient (REF) | payer MEDICARE, SELFPAY ==
[2021-11-16 07:40] LABS: Abs Immature Grans 0.04 10^3/uL (0.0-0.06); Absolute Basophil Count 0.02 10^3/uL (0.0-0.2); Absolute Eosinophil Count 0.07 10^3/uL (0.0-0.7); Absolute Lymphocyte Count 0.85 10^3/uL (1.2-3.4); Absolute Monocyte Count 0.49 10^3/uL (0.1-0.8); Absolute Neutrophil Count 5.67 10^3/uL (1.2-6.7); Basophils % 0.3; HCT 28.3 % (36.0-46.0); Immature Grans % 0.6; Lymphocytes % 11.9; MCHC 31.8 % (32.0-36.0); MCV 106.8 fL (80-95); MPV 11.3 fL (8.0-11.0); Monocytes % 6.9; Neutrophils % 79.3; Nucleated RBC 0 %; Platelet Count 130 10^3/uL (130-400); RBC 2.65 10^6/uL (3.93-5.22); RDW 14.3 % (11.7-14.6); WBC 7.14 10^3/uL (4.4-10.8)
[2021-11-16 08:17] LABS: ALT 35 U/L (14-59); AST 19 U/L (15-37); Albumin 3.5 g/dL (3.4-5.0); Alkaline Phosphatase 69 U/L (46-116); Anion Gap 10.7 mmol/L (3-11); BUN 73 mg/dL (7-18); Bilirubin, Total 0.4 mg/dL (0.2-1.0); CO2 25.3 mmol/L (21.0-32.0); Calcium 8.6 mg/dL (8.5-10.1); Chloride 105 mmol/L (98-107); Glucose 101 mg/dL (74-106); Sodium 141 mmol/L (136-145); Total Protein 6.3 g/dL (6.4-8.2)
[2021-11-16 08:22] LABS: CREATININE 5.5 mg/dL (0.55-1.02)
[2021-11-17 10:56] LABS: IgA 46 mg/dL (85-499); IgG 372 mg/dL (610-1,616); IgM 159 mg/dL (35-242); Kappa Free Light Chain 31.24 mg/dL (0.33-1.94); Lambda Free Light Chain 4.45 mg/dL (0.57-2.63)
[2021-11-17 14:56] LABS: Albumin 68.9 % (55.8-66.1); Total Protein 6.3 g/dL (6.3-8.2)
== END 2021-11-16 06:19 | disposition home or self-care (01) ==
LOC: LBN 06:18
PROVIDERS: PCP Family Medicine; Visit Provider Internal Medicine Hematology & Oncology
DX: C90.00 Multiple myeloma not having achieved remission (principal)
CPT/HCPCS: 80053; 82784; 83883; 84165; 85025

== ENCOUNTER 2021-12-14 06:24 | Outpatient (REF) | payer MEDICARE, SELFPAY ==
[2021-12-14 08:43] LABS: Abs Immature Grans 0.04 10^3/uL (0.0-0.06); Absolute Basophil Count 0.02 10^3/uL (0.0-0.2); Absolute Eosinophil Count 0.11 10^3/uL (0.0-0.7); Absolute Lymphocyte Count 0.78 10^3/uL (1.2-3.4); Absolute Neutrophil Count 5.97 10^3/uL (1.2-6.7); Basophils % 0.3; Eosinophils % 1.5; HCT 35.4 % (36.0-46.0); HGB 11.2 g/dL (11.2-15.7); Immature Grans % 0.5; Lymphocytes % 10.5; MCHC 31.6 % (32.0-36.0); MCV 107.6 fL (80-95); MPV 11.2 fL (8.0-11.0); Monocytes % 6.7; Neutrophils % 80.5; Nucleated RBC 0 %; Platelet Count 144 10^3/uL (130-400); RBC 3.29 10^6/uL (3.93-5.22); RDW 14.7 % (11.7-14.6); RDW-SD 58.1 fL; WBC 7.42 10^3/uL (4.4-10.8)
[2021-12-14 08:58] LABS: ALT 43 U/L (14-59); AST 27 U/L (15-37); Albumin 3.7 g/dL (3.4-5.0); Alkaline Phosphatase 223 U/L (46-116); Anion Gap 10.3 mmol/L (3-11); BUN 58 mg/dL (7-18); Bilirubin, Total 0.5 mg/dL (0.2-1.0); CO2 27.7 mmol/L (21.0-32.0); Calcium 8.2 mg/dL (8.5-10.1); Chloride 103 mmol/L (98-107); Estimated GFR 7.81 (mL/min/1.73m2); Glucose 139 mg/dL (74-106); Potassium 4.5 mmol/L (3.5-5.1); Sodium 141 mmol/L (136-145)
[2021-12-14 09:03] LABS: CREATININE 5.3 mg/dL (0.55-1.02)
[2021-12-14 09:26] LABS: Diff Comment Diff Reviewed; Macrocytosis 1+; Poikilocytes 1+; Polychromasia Present
[2021-12-15 10:56] LABS: IgA 37 mg/dL (85-499); IgG 334 mg/dL (610-1,616); IgM 148 mg/dL (35-242); Kappa Free Light Chain 27.79 mg/dL (0.33-1.94); Lambda Free Light Chain 4.32 mg/dL (0.57-2.63)
[2021-12-15 12:52] LABS: Total Protein 5.8 g/dL (6.3-8.2)
== END 2021-12-14 06:25 | disposition home or self-care (01) ==
LOC: LBN 06:24
PROVIDERS: PCP Family Medicine; Visit Provider Internal Medicine Hematology & Oncology
DX: C90.00 Multiple myeloma not having achieved remission (principal)
CPT/HCPCS: 80053; 82784; 83883; 84165; 85025

== ENCOUNTER 2022-01-11 06:26 | Outpatient (REF) | payer MEDICARE, SELFPAY ==
[2022-01-11 07:21] LABS: Abs Immature Grans 0.04 10^3/uL (0.0-0.06); Absolute Basophil Count 0.04 10^3/uL (0.0-0.2); Absolute Eosinophil Count 0.14 10^3/uL (0.0-0.7); Absolute Lymphocyte Count 0.72 10^3/uL (1.2-3.4); Absolute Monocyte Count 0.66 10^3/uL (0.1-0.8); Basophils % 0.5; Eosinophils % 1.6; HCT 32.3 % (36.0-46.0); HGB 10.4 g/dL (11.2-15.7); Immature Grans % 0.5; Lymphocytes % 8.3; MCH 34.1 pg (27.0-33.0); MCHC 32.2 % (32.0-36.0); MPV 11.8 fL (8.0-11.0); Monocytes % 7.6; Neutrophils % 81.5; Nucleated RBC 0 %; Platelet Count 135 10^3/uL (130-400); RBC 3.05 10^6/uL (3.93-5.22); RDW 14.2 % (11.7-14.6); RDW-SD 55.5 fL
[2022-01-11 07:32] LABS: ALT 26 U/L (14-59); AST 15 U/L (15-37); Albumin 3.5 g/dL (3.4-5.0); Alkaline Phosphatase 65 U/L (46-116); Anion Gap 9.8 mmol/L (3-11); BUN 65 mg/dL (7-18); Bilirubin, Total 0.5 mg/dL (0.2-1.0); CO2 25.2 mmol/L (21.0-32.0); Calcium 8.7 mg/dL (8.5-10.1); Chloride 99 mmol/L (98-107); Estimated GFR 6.64 (mL/min/1.73m2); Glucose 121 mg/dL (74-106); Potassium 4.8 mmol/L (3.5-5.1); Sodium 134 mmol/L (136-145); Total Protein 6.3 g/dL (6.4-8.2)
[2022-01-11 07:37] LABS: MCV 105.9 fL (80-95)
[2022-01-11 08:11] LABS: CREATININE 6.1 mg/dL (0.55-1.02)
[2022-01-12 10:40] LABS: IgA 43 mg/dL (85-499); IgG 294 mg/dL (610-1,616); IgM 142 mg/dL (35-242); Kappa Free Light Chain 31.66 mg/dL (0.33-1.94)
[2022-01-12 13:39] LABS: Albumin 68.8 % (55.8-66.1); Total Protein 5.7 g/dL (6.3-8.2)
== END 2022-01-11 06:27 | disposition home or self-care (01) ==
LOC: LBN 06:26
PROVIDERS: PCP Family Medicine; Visit Provider Internal Medicine Hematology & Oncology
DX: C90.00 Multiple myeloma not having achieved remission (principal)
CPT/HCPCS: 80053; 82784; 83883; 84165; 85025

== ENCOUNTER 2022-02-08 06:41 | Outpatient (REF) | payer MEDICARE, SELFPAY ==
[2022-02-08 06:53] LABS: Abs Immature Grans 0.03 10^3/uL (0.0-0.06); Absolute Basophil Count 0.03 10^3/uL (0.0-0.2); Absolute Eosinophil Count 0.11 10^3/uL (0.0-0.7); Absolute Lymphocyte Count 0.83 10^3/uL (1.2-3.4); Absolute Monocyte Count 0.55 10^3/uL (0.1-0.8); Absolute Neutrophil Count 5.31 10^3/uL (1.2-6.7); Basophils % 0.4; Eosinophils % 1.6; HCT 31.7 % (36.0-46.0); HGB 10.2 g/dL (11.2-15.7); Immature Grans % 0.4; Lymphocytes % 12.1; MCH 34.3 pg (27.0-33.0); MCHC 32.2 % (32.0-36.0); MCV 106.7 fL (80-95); MPV 11.7 fL (8.0-11.0); Neutrophils % 77.5; Nucleated RBC 0 %; Platelet Count 121 10^3/uL (130-400); RBC 2.97 10^6/uL (3.93-5.22); RDW-SD 55.6 fL; WBC 6.86 10^3/uL (4.4-10.8)
[2022-02-08 07:10] LABS: ALT 30 U/L (14-59); AST 18 U/L (15-37); Albumin 3.6 g/dL (3.4-5.0); Alkaline Phosphatase 82 U/L (46-116); Anion Gap 10.5 mmol/L (3-11); BUN 74 mg/dL (7-18); Bilirubin, Total 0.6 mg/dL (0.2-1.0); CO2 24.5 mmol/L (21.0-32.0); Calcium 8.7 mg/dL (8.5-10.1); Chloride 103 mmol/L (98-107); Diff Comment RBC Morph Reviewed; Estimated GFR 7.03 (mL/min/1.73m2); Glucose 104 mg/dL (74-106); Macrocytosis 2+; Sodium 138 mmol/L (136-145); Total Protein 6.4 g/dL (6.4-8.2)
[2022-02-08 08:07] LABS: CREATININE 5.8 mg/dL (0.55-1.02)
[2022-02-09 09:59] LABS: IgA 39 mg/dL (85-499); IgG 303 mg/dL (610-1,616); IgM 158 mg/dL (35-242); Kappa Free Light Chain 35.43 mg/dL (0.33-1.94); Lambda Free Light Chain 4.02 mg/dL (0.57-2.63)
[2022-02-09 13:18] LABS: Albumin 70.5 % (55.8-66.1)
== END 2022-02-08 06:42 | disposition home or self-care (01) ==
LOC: LBN 06:41
PROVIDERS: PCP Family Medicine; Visit Provider Internal Medicine Hematology & Oncology
DX: C90.00 Multiple myeloma not having achieved remission (principal)
CPT/HCPCS: 80053; 82784; 83883; 84165; 85025

== ENCOUNTER 2022-03-08 07:04 | Outpatient (REF) | payer MEDICARE, SELFPAY ==
[2022-03-08 07:17] LABS: Abs Immature Grans 0.04 10^3/uL (0.0-0.06); Absolute Basophil Count 0.02 10^3/uL (0.0-0.2); Absolute Eosinophil Count 0.08 10^3/uL (0.0-0.7); Absolute Lymphocyte Count 0.79 10^3/uL (1.2-3.4); Absolute Monocyte Count 0.56 10^3/uL (0.1-0.8); Absolute Neutrophil Count 4.99 10^3/uL (1.2-6.7); Basophils % 0.3; Eosinophils % 1.2; HCT 30.2 % (36.0-46.0); HGB 9.9 g/dL (11.2-15.7); Immature Grans % 0.6; Lymphocytes % 12.2; MCH 34.5 pg (27.0-33.0); MCHC 32.8 % (32.0-36.0); MCV 105.2 fL (80-95); MPV 11.5 fL (8.0-11.0); Monocytes % 8.6; Neutrophils % 77.1; Platelet Count 145 10^3/uL (130-400); RBC 2.87 10^6/uL (3.93-5.22); RDW 14.4 % (11.7-14.6); RDW-SD 55.3 fL; WBC 6.48 10^3/uL (4.4-10.8)
[2022-03-08 07:28] LABS: ALT 35 U/L (14-59); AST 24 U/L (15-37); Albumin 3.6 g/dL (3.4-5.0); Alkaline Phosphatase 66 U/L (46-116); Anion Gap 8.6 mmol/L (3-11); BUN 62 mg/dL (7-18); Bilirubin, Total 0.6 mg/dL (0.2-1.0); CO2 28.4 mmol/L (21.0-32.0); Calcium 8.7 mg/dL (8.5-10.1); Chloride 99 mmol/L (98-107); Glucose 97 mg/dL (74-106); Sodium 136 mmol/L (136-145); Total Protein 6.1 g/dL (6.4-8.2)
[2022-03-08 07:32] LABS: Macrocytosis 1+
[2022-03-08 07:34] LABS: Poikilocytes 1+
[2022-03-08 08:11] LABS: CREATININE 5.9 mg/dL (0.55-1.02)
[2022-03-09 10:21] LABS: IgA 38 mg/dL (85-499); IgG 294 mg/dL (610-1,616); IgM 157 mg/dL (35-242); Kappa Free Light Chain 37.33 mg/dL (0.33-1.94); Lambda Free Light Chain 4.22 mg/dL (0.57-2.63)
[2022-03-09 13:04] LABS: Albumin 71.2 % (55.8-66.1); Albumin g/dL 4.2 g/dL (3.6-5.2); Total Protein 5.9 g/dL (6.3-8.2)
== END 2022-03-08 07:05 | disposition home or self-care (01) ==
LOC: LBN 07:04
PROVIDERS: PCP Family Medicine; Visit Provider Internal Medicine Hematology & Oncology
DX: C90.00 Multiple myeloma not having achieved remission (principal)
CPT/HCPCS: 80053; 82784; 83883; 84165; 85025

== ENCOUNTER 2022-04-05 06:30 | Outpatient (REF) | payer MEDICARE, SELFPAY ==
[2022-04-05 06:46] LABS: Abs Immature Grans 0.04 10^3/uL (0.0-0.06); Absolute Basophil Count 0.03 10^3/uL (0.0-0.2); Absolute Eosinophil Count 0.09 10^3/uL (0.0-0.7); Absolute Lymphocyte Count 0.68 10^3/uL (1.2-3.4); Absolute Monocyte Count 0.49 10^3/uL (0.1-0.8); Absolute Neutrophil Count 5.21 10^3/uL (1.2-6.7); Basophils % 0.5; Eosinophils % 1.4; HCT 28.2 % (36.0-46.0); HGB 9.2 g/dL (11.2-15.7); Immature Grans % 0.6; Lymphocytes % 10.4; MCH 34.7 pg (27.0-33.0); MCHC 32.6 % (32.0-36.0); MCV 106 fL (80-95); MPV 11.4 fL (8.0-11.0); Monocytes % 7.5; Neutrophils % 79.6; Platelet Count 126 10^3/uL (130-400); RBC 2.65 10^6/uL (3.93-5.22); RDW 14.3 % (11.7-14.6); RDW-SD 56.5 fL; WBC 6.54 10^3/uL (4.4-10.8)
[2022-04-05 06:58] LABS: ALT 27 U/L (14-59); AST 18 U/L (15-37); Albumin 3.6 g/dL (3.4-5.0); Alkaline Phosphatase 62 U/L (46-116); Anion Gap 11.8 mmol/L (3-11); Bilirubin, Total 0.7 mg/dL (0.2-1.0); CO2 24.2 mmol/L (21.0-32.0); Calcium 9.2 mg/dL (8.5-10.1); Chloride 102 mmol/L (98-107); Estimated GFR 5.66 (mL/min/1.73m2); Glucose 104 mg/dL (74-106); Potassium 5.2 mmol/L (3.5-5.1); Sodium 138 mmol/L (136-145); Total Protein 6.3 g/dL (6.4-8.2)
[2022-04-05 08:14] LABS: BUN 86 mg/dL (7-18)
[2022-04-06 10:14] LABS: IgA 34 mg/dL (85-499); IgG 293 mg/dL (610-1,616); IgM 153 mg/dL (35-242); Kappa Free Light Chain 35.35 mg/dL (0.33-1.94); Lambda Free Light Chain 3.97 mg/dL (0.57-2.63)
[2022-04-06 13:22] LABS: Albumin 67.1 % (55.8-66.1); Albumin g/dL 4.2 g/dL (3.6-5.2); Comment (See Note); Total Protein 6.2 g/dL (6.3-8.2)
[2022-04-06 15:10] LABS: Immunotyping, Serum (See Note)
== END 2022-04-05 06:31 | disposition home or self-care (01) ==
LOC: LBN 06:30
PROVIDERS: PCP Family Medicine; Visit Provider Internal Medicine Hematology & Oncology
DX: C90.00 Multiple myeloma not having achieved remission (principal)
CPT/HCPCS: 80053; 82784; 83883; 84165; 85025; 86320

== ENCOUNTER 2022-05-03 06:33 | Outpatient (REF) | payer MEDICARE, SELFPAY ==
[2022-05-03 06:56] LABS: Abs Immature Grans 0.03 10^3/uL (0.0-0.06); Absolute Basophil Count 0.01 10^3/uL (0.0-0.2); Absolute Lymphocyte Count 0.57 10^3/uL (1.2-3.4); Absolute Monocyte Count 0.54 10^3/uL (0.1-0.8); Absolute Neutrophil Count 5.55 10^3/uL (1.2-6.7); Basophils % 0.1; Eosinophils % 1.5; HCT 30.5 % (36.0-46.0); Immature Grans % 0.4; Lymphocytes % 8.4; MCH 34.6 pg (27.0-33.0); MCHC 32.8 % (32.0-36.0); MCV 106 fL (80-95); MPV 11.2 fL (8.0-11.0); Monocytes % 7.9; Neutrophils % 81.7; Platelet Count 138 10^3/uL (130-400); RBC 2.89 10^6/uL (3.93-5.22); RDW-SD 53.3 fL
[2022-05-03 07:23] LABS: ALT 34 U/L (14-59); AST 23 U/L (15-37); Albumin 3.5 g/dL (3.4-5.0); Alkaline Phosphatase 58 U/L (46-116); Anion Gap 10.8 mmol/L (3-11); BUN 75 mg/dL (7-18); Bilirubin, Total 0.5 mg/dL (0.2-1.0); CO2 26.2 mmol/L (21.0-32.0); Calcium 8.7 mg/dL (8.5-10.1); Chloride 97 mmol/L (98-107); Estimated GFR 6.17 (mL/min/1.73m2); Glucose 93 mg/dL (74-106); Potassium 5.3 mmol/L (3.5-5.1); Sodium 134 mmol/L (136-145); Total Protein 6.2 g/dL (6.4-8.2)
[2022-05-03 08:10] LABS: CREATININE 6.5 mg/dL (0.55-1.02)
[2022-05-04 09:36] LABS: IgA 38 mg/dL (85-499); IgG 307 mg/dL (610-1,616); IgM 148 mg/dL (35-242); Lambda Free Light Chain 4.13 mg/dL (0.57-2.63)
[2022-05-04 13:33] LABS: Albumin 70.7 % (55.8-66.1); Albumin g/dL 4.1 g/dL (3.6-5.2); Comment (See Note); Total Protein 5.8 g/dL (6.3-8.2)
[2022-05-04 15:29] LABS: Immunotyping, Serum (See Note)
== END 2022-05-03 06:34 | disposition home or self-care (01) ==
LOC: LBN 06:33
PROVIDERS: PCP Family Medicine; Visit Provider Internal Medicine Hematology & Oncology
DX: C90.00 Multiple myeloma not having achieved remission (principal)
CPT/HCPCS: 80053; 82784; 83883; 84165; 85025; 86320

== ENCOUNTER 2022-06-14 06:46 | Outpatient (REF) | payer MEDICARE, SELFPAY ==
[2022-06-14 07:47] LABS: Abs Immature Grans 0.09 10^3/uL (0.0-0.06); Absolute Eosinophil Count 0.26 10^3/uL (0.0-0.7); Absolute Lymphocyte Count 0.56 10^3/uL (1.2-3.4); Absolute Neutrophil Count 9.71 10^3/uL (1.2-6.7); Basophils % 0.4; Eosinophils % 2.3; HCT 30.2 % (36.0-46.0); HGB 9.7 g/dL (11.2-15.7); Immature Grans % 0.8; Lymphocytes % 4.9; MCH 33.3 pg (27.0-33.0); MCHC 32.1 % (32.0-36.0); MCV 104 fL (80-95); MPV 10.2 fL (8.0-11.0); Monocytes % 6.2; Neutrophils % 85.4; Platelet Count 232 10^3/uL (130-400); RBC 2.91 10^6/uL (3.93-5.22); RDW-SD 57.1 fL; WBC 11.37 10^3/uL (4.4-10.8)
[2022-06-14 07:48] LABS: Absolute Basophil Count 0.05 10^3/uL (0.0-0.2)
[2022-06-14 07:56] LABS: ALT 26 U/L (14-59); AST 19 U/L (15-37); Albumin 3.1 g/dL (3.4-5.0); Alkaline Phosphatase 102 U/L (46-116); Anion Gap 13.3 mmol/L (3-11); BUN 66 mg/dL (7-18); Bilirubin, Total 0.4 mg/dL (0.2-1.0); CO2 25.7 mmol/L (21.0-32.0); Calcium 8.9 mg/dL (8.5-10.1); Chloride 96 mmol/L (98-107); Estimated GFR 5.48 (mL/min/1.73m2); Glucose 112 mg/dL (74-106); Potassium 3.6 mmol/L (3.5-5.1); Sodium 135 mmol/L (136-145); Total Protein 6.7 g/dL (6.4-8.2)
[2022-06-14 08:08] LABS: CREATININE 7.2 mg/dL (0.55-1.02)
[2022-06-15 10:02] LABS: IgA 91 mg/dL (85-499); IgG 586 mg/dL (610-1,616); IgM 212 mg/dL (35-242); Kappa Free Light Chain 45.25 mg/dL (0.33-1.94); Lambda Free Light Chain 6.14 mg/dL (0.57-2.63)
[2022-06-15 15:34] LABS: Albumin 60.6 % (55.8-66.1); Albumin g/dL 3.6 g/dL (3.6-5.2)
== END 2022-06-14 06:47 | disposition home or self-care (01) ==
LOC: LBN 06:46
PROVIDERS: PCP Family Medicine; Visit Provider Internal Medicine Hematology & Oncology
DX: C90.00 Multiple myeloma not having achieved remission (principal)
CPT/HCPCS: 80053; 82784; 83883; 84165; 85025

== ENCOUNTER 2022-07-05 09:24 | Inpatient (IN) | payer MEDICARE, SELFPAY ==
[2022-07-05] VITALS (50 sets, daily range): BP systolic 106–142; BP diastolic 70–111; PULSE 100–138; RESP 18–39; TEMP 36.4–36.9; O2SAT 93–97
--- NOTE | 2022-07-05 09:15 | RT.EKG_ITS ---
APPROVED REPORT Exam: Resting ECG Reason for Exam: sob, palpitations Patient Location: E HR:119 bpm ECG Measurements Heart Rate 119 AXIS SD [id number] P [id number] QRSd 98 QRS -31 QT 347 T 150 QTc 488 Conclusion Atrial fibrillation...V-rate 90-143, irreg A-activity LVH with secondary repolarization abnormality...multi-LVH criteria, abnrm ST-T
--- NOTE | 2022-07-05 09:48 | ED.GENADUL_ITS ---
Discharge Plan Disposition Patient Disposition: [facility] Condition: Fair Discharge Details Chief Complaint: SOB Clinical Impression: NSTEMI (non-ST elevated myocardial infarction) Admit Date/Time: 07/05/22 14:09 Admit Provider: Kya Merlos Attending Provider: Kya Merlos Primary Care Provider: Truong Breaux ED Provider: Lauren Deleon Discharge Instructions Activity:: Activity as Tolerated Diet:: renal Discharge Orders Discharge Orders: Discharge Order (Routine); Ordered 07/06/22 Ordered By: Kya Merlos Discharge Data Discharge Date/Time-TO BE ENTERED AT DEPARTURE: 07/05/22 15:44 Medical Decision Making Patient is a pleasant 73-year-old female, accompanied by significant other, with chief complaint of palpitations and elevated heart rate. Patient is a dialysis patient, she did receive her dialysis this morning, is on a Tuesday schedule and some makes urine. Patient not anticoagulated. She reports that she is been having this intermittent episodes of palpitations with associated nausea since the end of April when she was diagnosed with a virus. She denies this being COVID. She states that she was hospitalized 2 weeks ago for the same at [facility], changes did occur to her medications and she is unclear what these are. She not sure what medication she took this morning but does state that she takes was prescribed to her on a regular basis with no missed doses. She denies any chest pain, pressure, shortness of breath. Has not had any difficulty breathing. States that symptoms are intermittent and can wake her from sleep. She has not noted any exertional component to any of her symptoms. Unclear exactly what occurred when she was admitted but she is describing having an echo and states that she does have a follow-up scheduled with [place] cardiology July 28. On exam, patient appears nontoxic. While at rest, she is reporting that she is completely asymptomatic. Patient has an irregularly irregular rhythm and is tachycardic ranging fr 110s to 125. Lungs are clear, abdomen benign. No calf tenderness or lower extremity edema. No murmurs rubs or gallops. EKG obtained, no acute ischemic changes noted but patient does appear to be in atrial fibrillation. She denies ever having heard of this diagnosis before. However, both she and her do seem to have limited medical knowledge regarding the patient's history. I did recommend that [facility] and have the most up-to-date at records and we will request these. Will obtain baseline labs. She denies being anticoagulated but I would imagine that she be put on some type of anticoagulation and her recent time of discharge she was diagnosed with atrial fibrillation at that time. She is reported to take metoprolol daily but unclear when she takes this. As she is currently asymptomatic, plan to obtain records Contacted by the lab, patient's troponin is elevated to 64. Again, patient continues to deny any chest pain, pressure or shortness of breath. This may be associated demand ischemia, particularly in the setting of her having chronic kidney disease. I would like to begin the patient on anticoagulation. However, I do remain concerned that she may be anticoagulated particular given her recent admission and not know about this. Are still awaiting the report from [place]. Received notes from [facility]. ED report the patient has multiple myeloma, ESRD, on hemodialysis, hypertension, atrial fibrillation and anti coagulated on Eliquis. Intrapleurally. Patient had cardiopulmonary arrest on 630 and was questioning if this is associated with Coreg and her being bradycardic at the time of the arrest. Heart rate when last seen at [facility], date of discharge 06/17/2022, was in the 130s to 150s. While in the ED, she was noted to have mild CHF, pulmonary edema and a mildly elevated troponin associated with A. fib and RVR. Patient was on Cardizem drip and admitted. Patient was discharged home on Cardizem CD2 140 mg daily. Other medications were continued. They did note bibasilar crackles at the time of her admission, these are not noted at this time. At the time of discharge, patient was on the Cardizem, Eliquis, lisinopril, Lancey and carbonate, simvastatin. Her creatinine was 6.12 when admitted there. Troponin I was 40.5 do not know there range of normal. Spoke with Dr. Waddell with cardiology at [facility]. We reviewed patient's complex history. She advised that they will accept the patient to Dr. Collins but are unable to do so today, will be able to accept the patient in transfer tomorrow. She advised to continue to trend troponin. States that in the patient's history, she has trialed a beta-quoc. A tiffany torres. Advised that if the patient's heart rate remains less than 120 and patient is asymptomatic that we could left for being continue with her typical daily medications. Alternatively, could try a low-dose metoprolol in adjunct to what she is already on at 25 mg daily. Consulted with hospitalist who agrees to admission. discussed at length with patient and her , they are in agreeemnt with this plan. Again, patient did receive dialysis today, not due again until Tuesday, has urinated since being here HPI General Date/Time Provider Initiated Documentation: 07/05/22 09:48 . Limitations to Documentation: no limitations . Information obtained by: patient, family, RN notes reviewed and old records reviewed . History of Present Illness 81 year old F presents to the emergency department with the chief complaint of palpitations, tachycardia, described as moderate and similar to prior episodes, Quality is described as other (patient denies pain), and is localized to the chest. Patient reports no radiation. Patient started experiencing this week(s) and it has been intermittent. No relieving factors improve symptom(s), Movement worsens symptoms . Patient notes nausea/vomiting (nausea, no vomiting); denies chest pain, cough, diaphoresis, fever/chills, headaches, shortness of breath and syncope. Related Data Home Medications Medication Instructions Recorded Confirmed simvastatin 20 mg tablet 20 mg PO HS 05/11/17 07/05/22 apixaban 2.5 mg tablet (Eliquis) 2.5 mg PO BID 07/05/22 07/05/22 diltiazem HCl 240 mg 240 mg PO QAM 07/05/22 07/05/22 capsule,extended release 24 hr (Cardizem CD) fosinopril 40 mg tablet 40 mg PO BID 07/05/22 07/05/22 lanthanum 500 mg chewable tablet 1,000 mg PO TID 07/05/22 07/05/22 Allergies Allergy/AdvReac Type Severity Reaction Status Date / Time No Known Allergies Allergy Unverified 07/05/22 09:42 General Stated Complaint: SOB MARLENY: 2 Review of Systems Constitutional Constitutional: Reports as per HPI, Denies chills, Denies fever(s), Denies headache(s) and Denies poor appetite ENT Ears, Nose, Mouth, and Throat: Denies dizziness and Denies headache(s) Cardiovascular Cardiovascular: Reports as per HPI, Denies dyspnea and Denies dyspnea on exert ion Respiratory Respiratory: Reports as per HPI, Denies chest congestion, Denies cough, Denies pain on inspiration, Denies pain with cough, Denies dyspnea and Denies dyspnea on exertion Gastrointestinal Gastrointestinal: Reports as per HPI, Denies abdominal pain, Denies diarrhea and Denies vomiting Musculoskeletal Musculoskeletal: Reports as per HPI and Denies back pain Integumentary/Breasts Skin/Breast: Reports as per HPI and Denies rash Neurologic Neurologic: Reports as per HPI, Denies dizziness and Denies headache(s) PFSH All Active Problems (Updated 07/16/22 @ 23:17 by BROOKLYNN Ravi) NSTEMI (non-ST elevated myocardial infarction) (Acute) Medical History (Updated 07/16/22 @ 23:17 by BROOKLYNN Ravi) Atrial fibrillation with rapid ventricular response anticoagulated with eliquis Bradycardic cardiac arrest felt to be due to excessive beta blockade while on coreg CHF (congestive heart failure) ESRD on hemodialysis 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 Hyperlipidemia Hypertension Multiple myeloma Surgical History (Updated 07/05/22 @ 15:59 by Kya Merlos MD) AVF (arteriovenous fistula) failed; RUE History of hysterectomy with bilateral oophorectomy S/P dialysis catheter insertion L chest TDC Family History (Updated 07/05/22 @ 16:03 by Kya Merlos MD) Mother Heart disease Hypertension Father Diabetes Social History (Updated 07/05/22 @ 16:05 by Kya Merlos MD) Smoking/Tobacco Use Status: Never Smoking risk assessment performed?: Yes Alcohol Intake: current Alcohol Intake frequency: a few times a month Drug use: Never Substance use type: does not use Do you feel safe at home: Yes Do you feel safe in your relationship?: Yes Exam Const General: cooperative, healthy appearing, comfortable, no acute distress and well developed Nutritional Appearance: average body habitus and well nourished Orientation: alert, awake and oriented x3 HENMT Head: normal to inspection Ears: hearing grossly normal bilaterally Mouth: moist mucous membranes Chest Chest: normal inspection of the chest, normal palpation of entire chest wall and no crepitus Resp Effort & Inspection: normal respiratory effort, able to speak in complete sentences and no respiratory distress Auscultation: clear to auscultation bilaterally, no rales, no rhonchi and no wheezes Cardio Rate: tachycardic Rhythm: abnormal rhythm irregularly irregular Heart Sounds: S1 normal and S2 normal GI Inspection: normal to inspection, no edema and non-distended Palpation: soft, no hepatosplenomegaly, not firm, no guarding, not rigid and nontender Auscultation: normal bowel sounds Back/Spine/Pelvis Back: no CVA tenderness Thoracic/Lumbar Spine: thoracic and lumbar spine normal to inspection Skin General skin exam: no rashes or lesions noted Trauma: no lacerations or abrasions Neuro General: patient alert, patient awake and patient oriented x3 Cognition: normal cognition Speech: speech normal Gait: normal gait Extrem General: normal to inspection, capillary refill normal, no pedal edema, no calf tenderness and normal gait Psych Appearance: grossly normal and well kempt Mental Status: mental status grossly normal Speech and Movement: speech and movement normal Course Vital Signs Vital signs: Vital Signs Temperature 36.9 C 07/05/22 09:29 Pulse 124 H 07/05/22 09:29 Respiratory Rate 20 07/05/22 09:29 Pulse Oximetry 96 07/05/22 09:29 Temperature 36.9 C 07/05/22 09:29 Temperature Source Temporal Artery Scan 07/05/22 09:29 Pulse 124 H 07/05/22 09:29 Respiratory Rate 29 H 07/05/22 09:34 Respiratory Effort Short of Breath 07/05/22 09:34 Respiratory Depth Shallow 07/05/22 09:34 Respiratory Pattern Normal 07/05/22 09:34 Blood Pressure Position Sitting 07/05/22 09:29 Pulse Oximetry 96 07/05/22 09:29 Oxygen Delivery Method Room Air 07/05/22 09:29 Oxygen Flow Rate 0 07/05/22 09:29 Pain Level 0 07/05/22 09:29
[2022-07-05 10:15] LABS: Abs Immature Grans 0.03 10^3/uL (0.0-0.06); Absolute Basophil Count 0.03 10^3/uL (0.0-0.2); Absolute Eosinophil Count 0.09 10^3/uL (0.0-0.7); Absolute Lymphocyte Count 0.89 10^3/uL (1.2-3.4); Absolute Monocyte Count 0.69 10^3/uL (0.1-0.8); Absolute Neutrophil Count 7.12 10^3/uL (1.2-6.7); Basophils % 0.3; HCT 36.8 % (36.0-46.0); HGB 11.8 g/dL (11.2-15.7); Immature Grans % 0.3; Lymphocytes % 10.1; MCH 31.2 pg (27.0-33.0); MCHC 32.1 % (32.0-36.0); MCV 97 fL (80-95); MPV 10.4 fL (8.0-11.0); Monocytes % 7.8; Neutrophils % 80.5; Platelet Count 189 10^3/uL (130-400); RBC 3.78 10^6/uL (3.93-5.22); RDW 14.7 % (11.7-14.6); RDW-SD 53.2 fL; WBC 8.85 10^3/uL (4.4-10.8)
[2022-07-05 10:28] LABS: INR 1.1 (0.9-1.1); PTT Activated 31.4 sec (21.0-27.5); Prothrombin Time 11.1 sec (9.3-11.0)
[2022-07-05 10:35] LABS: ALT 41 U/L (14-59); AST 41 U/L (15-37); Albumin 3.8 g/dL (3.4-5.0); Alkaline Phosphatase 95 U/L (46-116); Anion Gap 11.8 mmol/L (3-11); BUN 23 mg/dL (7-18); Bilirubin, Total 0.6 mg/dL (0.2-1.0); CO2 30.2 mmol/L (21.0-32.0); CREATININE 3.2 mg/dL (0.55-1.02); Calcium 9.2 mg/dL (8.5-10.1); Chloride 98 mmol/L (98-107); Estimated GFR 13.97 (mL/min/1.73m2); Glucose 96 mg/dL (74-106); Potassium 3.4 mmol/L (3.5-5.1); Sodium 140 mmol/L (136-145); Total Protein 7.6 g/dL (6.4-8.2)
[2022-07-05 10:38] LABS: Troponin I 264 ng/L (<or=60)
[2022-07-05 10:59] LABS: Source Nasal/Nares
[2022-07-05 11:08] LABS: Magnesium 2.4 mg/dL (1.8-2.4); TSH (W/Ref FT4) 4.42 uIU/mL (0.36-3.74)
--- NOTE | 2022-07-05 11:17 | DI.RAD_ITS ---
Exam(s) XR CHEST 2V PA LATERAL EXAM: XR CHEST 2V PA LATERAL CLINICAL HISTORY: palpitations TECHNIQUE: 2D digital imaging was performed of the chest. Three images were obtained. PA and later al views were obtained. COMPARISON: CR CHEST 2 VIEWS PA,LAT from 07/20/2017 FINDINGS: MEDIASTINUM: Normal. HEART: Normal. PULMONARY VASCULATURE: There is a pulmonary venous congestion. LUNGS: Mild interstitial infiltrates are seen. PLEURAL SPACE: Small bilateral pleural effusions are present. BONE:Within normal limits for the patient's age. OTHER FINDINGS:The tip of the dual lumen catheter is seen near the cavoatrial junction. A vascular s tent is seen in the right upper extremity. IMPRESSION: Findings suggested fluid overload/congestive heart failure with bilateral pleural effusions and pulmo nary venous congestion. DATA REPOSITORY: RADIATION DOSE DELIVERED:
[2022-07-05 11:24] LABS: FREE T4 1.44 ng/dL (0.76-1.46)
[2022-07-05] MEDS: dilTIAZem 25 MG/5 ML VIAL 10 MG IVP (11:56)
[2022-07-05] MEDS: Furosemide 100 MG/10 ML VIAL 80 MG IVP (12:52)
--- NOTE | 2022-07-05 13:00 | RT.EKG_ITS ---
APPROVED REPORT Exam: Resting ECG Reason for Exam: sob Patient Location: E HR:116 bpm ECG Measurements Heart Rate 116 AXIS SD [id number] P [id number] QRSd 99 QRS -32 QT 390 T 157 QTc 543 Conclusion Atrial fibrillation...V-rate 88-138, irreg A-activity LVH with secondary repolarization abnormality...multi-LVH criteria, abnrm ST-T Prolonged QT interval...QTc >500mS
[2022-07-05 13:37] LABS: Troponin I 250 ng/L (<or=60)
--- NOTE | 2022-07-05 14:12 | HPE_ITS ---
Date of service: 07/05/22 Time of Service: 14:13 Assessment and Plan Assessment and plan (1) Atrial fibrillation with rapid ventricular response: Assessment and plan: Admit to medical surgical floor with telemetry. Will trial addition of lopressor 12.5 mg PO BID to cardizem CD 240 mg PO daily. At this point, we recognize that getting the patient's rates controlled at our facility will be difficult as we do not want to excessively block her AV node - she has a h/o of a recent bradycardic arrest. Will plan to transfer to cardiology at [facility] [place] [place] in am. Continue anticoagulation with eliquis. (2) ESRD on hemodialysis: Assessment and plan: S/p HD today. On HD M and F. Still makes urine. Appears fluid overloaded by chest imaging. S/p lasix 80 mg IV x 1 in the ED. Will monitor response. (3) CHF (congestive heart failure): Assessment and plan: As above I do not have access to the patient's prior echocardiograms from other facilities at this time. Will trial diuresis as she does appear to be in an acute exacerbation, though this could be more related to her rapid rates and/or renal failure than primary CHF. Monitor I/Os and daily weights. (4) Hypertension: Assessment and plan: Continue home medications in addition to new lopressor 12.5 mg PO BID with holding parameters. (5) Discharge planning issues: Status: Acute Assessment and plan: Admit to medical surgical foor. Accepted in Transfer to [facility] [place] [place] cardiology for tomorrow. Accepting MD: Dr Collins. History of Present Illness History of Present Illness Chief Complaint: Rapid Afib after HD today Narrative: Ms Hermosillo is a 81 year old female with PMHx of ESRD on HD Tuesday and Tuesday (still makes urine; last dialysis this morning), as well as h/o Afib on cardizem CD 240 mg PO daily and anticoagulation with eliquis, CHF (?EF), h/o bradycardic arrest at [facility] felt to be due to excessive beta blockade with coreg earlier this summer, multiple myeloma, who presented to [facility] ED today after her hemodialysis treatment c/o palpitations x 3 days, with sensations of shortness of breath and L-sided chest pain all night last night. She denies SOB and palpitations right now, but feels she cannnot take a deep breath. She was found to be in rapid Afib with HR in 120s. She was also found to have a mildly elevated troponin I (264) with nonspecific changes on EKG. Her ER workup revealed evidence of pulmonary edema. She received a bolus of 10 mg IV cardizem with HR briefly going down to the 90s, but this has since come back up to 110s -120s. Cardiology at [facility] [place] [place] was consulted and agreed to accept the patient in transfer for tomorrow given that she will likely require dialysis and possible initiation of an antiarrhythmic agent on this admission. Until then, we are recommended to add a small dose of metoprolol to her current regimen. Accepting MD is Dr Collins. 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 Hyperlipidemia Hypertension Multiple myeloma Surgical History (Updated 07/05/22 @ 15:59 by Kya Merlos MD) AVF (arteriovenous fistula) failed; RUE History of hysterectomy with bilateral oophorectomy S/P dialysis catheter insertion L chest TDC Family History (Updated 07/05/22 @ 16:03 by Kya Merlos MD) Mother Heart disease Hypertension Father Diabetes Social History (Updated 07/05/22 @ 16:05 by Kya Merlos MD) Smoking/Tobacco Use Status: Never Smoking risk assessment performed?: Yes Alcohol Intake: current Alcohol Intake frequency: a few times a month Drug use: Never Substance use type: does not use Do you feel safe at home: Yes Do you feel safe in your relationship?: Yes Meds Allergies and Home Medications Allergies Allergy/AdvReac Type Severity Reaction Status Date / Time No Known Allergies Allergy Unverified 07/05/22 09:42 Home Medications Medication Instructions Recorded Confirmed Type acyclovir 400 mg tablet 200 mg PO BID 05/11/17 07/05/22 History metoprolol succinate 50 mg 50 mg PO DAILY 05/11/17 07/05/22 History tablet,extended release 24 hr simvastatin 20 mg tablet 20 mg PO DAILY 05/11/17 07/05/22 History acetaminophen 325 mg tablet 650 mg PO Q4H PRN PRN 07/20/17 07/05/22 History cholecalciferol (vitamin D3) 25 1,000 units PO DAILY 07/20/17 07/05/22 History mcg (1,000 unit) tablet heparin (porcine) 5,000 unit/mL 5,000 unit IJ DAILY 07/20/17 07/05/22 History injection syringe sennosides 8.6 mg-docusate sodium 2 ea PO BID 07/20/17 07/05/22 History 50 mg tablet (Senna Plus) Exam Narrative Exam Narrative: General: Pleasant elderly female who is laying comfortably nearly fl at in bed, A&Ox3, NAD Neurological: A&Ox3, no focal deficits Psychiatric: Appropriate speech pattern/content Skin: Ecchymoses RUE, otherwise intact HEENT: Atraumatic, normocephalic, EOMI, MMM, no submandibular or cervicaly lymphadenopathy, no goiter or JVD Cardiovascular: irregularly irregular rhythm, tachycardic, no m/r/g Lungs: slight rales at B bases Gastrointestinal: soft, nontender, nondistended Genitourinary: deferred Extremities: +1 BLE edema, trace pedal pulses B, I am unable to feel RUE radial pulse; RUE AVF without bruit/thrill; L radial pulse preserved. Results Imaging Additional studies: CXR: Findings suggested fluid overload/congestive heart failure with bilateral pleural effusions and pulmonary venous congestion.? EKG #1: Rapid Afib, HR 119, nonspecific diffuse ST-T changes EKG #2: Afib, HR 116, unchanged Labs Result diagrams: 07/05/22 10:07 07/05/22 10:07 Labs: Laboratory Results - last 24 hr 07/05/22 07/05/22 07/05/22 10:07 10:07 10:07 WBC RBC Hgb Hct MCV MCH MCHC RDW Plt Count MPV Immature Gran % Neutrophils % Lymphocytes % Monocytes % Eosinophils % Basophils % Nucleated RBC % Absolute Neutrophils Absolute Lymphocytes Absolute Monocytes Absolute Eosinophils Absolute Basophils PT 11.1 H INR 1.1 APTT 31.4 H Sodium 140 Potassium 3.4 L Chloride 98 Carbon Dioxide 30.2 Anion Gap 11.8 H BUN 23 H Creatinine 3.2 H Estimated GFR/1.73 m2 13.97 Glucose 96 Calcium 9.2 Magnesium 2.4 Total Bilirubin 0.6 AST 41 H ALT 41 Alkaline Phosphatase 95 Troponin I 264 H* Total Protein 7.6 Albumin 3.8 TSH 4.42 H Free T4 1.44 COVID-19 Source 07/05/22 07/05/22 07/05/22 10:07 10:54 13:06 WBC 8.85 RBC 3.78 L Hgb 11.8 Hct 36.8 MCV 97 H MCH 31.2 MCHC 32.1 RDW 14.7 H Plt Count 189 MPV 10.4 Immature Gran % 0.3 Neutrophils % 80.5 Lymphocytes % 10.1 Monocytes % 7.8 Eosinophils % 1.0 Basophils % 0.3 Nucleated RBC % 0.0 Absolute Neutrophils 7.12 H Absolute Lymphocytes 0.89 L Absolute Monocytes 0.69 Absolute Eosinophils 0.09 Absolute Basophils 0.03 PT INR APTT Sodium Potassium Chloride Carbon Dioxide Anion Gap BUN Creatinine Estimated GFR/1.73 m2 Glucose Calcium Magnesium Total Bilirubin AST ALT Alkaline Phosphatase Troponin I 250 H* Total Protein Albumin TSH Free T4 COVID-19 Source Nasal/Nares Last Vital Signs Temp 36.9 C 07/05/22 09:29 Pulse 126 H 07/05/22 14:00 Resp 21 07/05/22 14:01 BP 117/82 07/05/22 14:00 Pulse Ox 93 07/05/22 14:01
[2022-07-05] MEDS: Metoprolol 12.5 MG TAB PO ×2 (14:16→20:15)
[2022-07-05 15:10] LABS: COVID-19 PCR Negative (Negative)
[2022-07-05] MEDS: Aspirin 325 MG TAB PO (16:51)
[2022-07-05 18:47] LABS: Troponin I 221 ng/L (<or=60)
[2022-07-05] MEDS: Apixaban 2.5 MG TAB PO (20:15)
[2022-07-05] MEDS: Normal Saline Flush 10 ML SYR IVP (20:15)
[2022-07-05] MEDS: Simvastatin 20 MG TAB PO (21:27)
[2022-07-06] VITALS (9 sets, daily range): BP systolic 102–136; BP diastolic 64–76; PULSE 102–133; RESP 16–20; TEMP 36.5–37; O2SAT 93–96
[2022-07-06] MEDS: Metoprolol 12.5 MG TAB PO ×2 (06:43→19:48)
--- NOTE | 2022-07-06 07:30 | RT.EKG_ITS ---
APPROVED REPORT Exam: Resting ECG Reason for Exam: rapid afib, chest pain Patient Location: I HR:115 bpm ECG Measurements Heart Rate 115 AXIS DE [id number] P [id number] QRSd 100 QRS -38 QT 399 T 205 QTc 552 Conclusion Atrial fibrillation...V-rate 85-136, irreg A-activity Abnormal R-wave progression, late transition...QRS area<0 in V5/V6 LVH with secondary repolarization abnormality...multi-LVH criteria, abnrm ST-T
[2022-07-06 08:08] LABS: Abs Immature Grans 0.04 10^3/uL (0.0-0.06); Absolute Basophil Count 0.04 10^3/uL (0.0-0.2); Absolute Eosinophil Count 0.16 10^3/uL (0.0-0.7); Absolute Lymphocyte Count 0.55 10^3/uL (1.2-3.4); Absolute Monocyte Count 0.41 10^3/uL (0.1-0.8); Absolute Neutrophil Count 6.66 10^3/uL (1.2-6.7); Basophils % 0.5; HCT 35.3 % (36.0-46.0); HGB 11.2 g/dL (11.2-15.7); Immature Grans % 0.5; MCH 31.2 pg (27.0-33.0); MCHC 31.7 % (32.0-36.0); MCV 98 fL (80-95); MPV 11.2 fL (8.0-11.0); Monocytes % 5.2; Neutrophils % 84.8; Platelet Count 200 10^3/uL (130-400); RBC 3.59 10^6/uL (3.93-5.22); RDW 14.7 % (11.7-14.6); RDW-SD 54.2 fL; WBC 7.86 10^3/uL (4.4-10.8)
[2022-07-06 08:22] LABS: Anion Gap 12.5 mmol/L (3-11); BUN 37 mg/dL (7-18); CO2 29.5 mmol/L (21.0-32.0); Calcium 9.1 mg/dL (8.5-10.1); Chloride 97 mmol/L (98-107); Estimated GFR 9.19 (mL/min/1.73m2); Glucose 83 mg/dL (74-106); Magnesium 2.4 mg/dL (1.8-2.4); Potassium 3.8 mmol/L (3.5-5.1); Sodium 139 mmol/L (136-145)
[2022-07-06 08:25] LABS: CREATININE 4.6 mg/dL (0.55-1.02)
[2022-07-06] MEDS: Apixaban 2.5 MG TAB PO ×2 (08:25→19:48)
[2022-07-06] MEDS: dilTIAZem CD 120 MG CAPCR 240 MG PO (08:25)
--- NOTE | 2022-07-06 10:42 | PDOC.CMIN ---
- If Service Date Differs Date of service: 07/06/22 Time of Service: 10:42 Care Management Initial Assess REASON FOR HOSPITALIZATION:: AFIB with RVR, elevated troponin PAST MEDICAL HISTORY/PAST SURGICAL HISTORY:: All Active Problems. Discharge planning issues (Acute). Medical History. Atrial fibrillation with rapid ventricular response. anticoagulated with eliquis. Bradycardic cardiac arrest. felt to be due to excessive beta blockade while on coreg. CHF (congestive heart failure). ESRD on hemodialysis. Failure of surgically constructed arteriovenous fistula. RUE. Hyperlipidemia. Hypertension. Multiple myeloma. Surgical History. AVF (arteriovenous fistula). failed; RUE. History of hysterectomy with bilateral oophorectomy. S/P dialysis catheter insertion. L chest TDC PREVIOUS FUNCTIONAL STATUS/SOCIAL/FAMILY SUPPORTS:: Floridalma lives in an apartment in [place] with her , Patricio. They have one son, and one grandson. She currently receives dialysis on Mon/Fri. She is independent with ADL's at baseline. CURRENT FUNCTIONAL STATUS:: Floridalma was sitting up on her bed when CM met with her. Her , Patricio, was visiting. They were pleasant and engaged in conversation well. Per MD, Floridalma has been accepted in transfer, but is awaiting a bed at [facility]. Once a bed is available, she will be transported via EMS, coordinated by RN supervisor park workers. CM will continue to follow. ADVANCE DIRECTIVES:: None on file. Has patient been provided with info about the portal/API?: Yes Did the patient sign up for the portal?: No CODE STATUS:: Full Code INSURANCE COVERAGE / FINANCIAL ISSUES:: [employer]- MCR replacement CURRENT HOME/COMMUNITY SERVICES/EQUIPMENT:: unknown. PRIMARY CARE PHYSICIAN:: Truong Breaux POTENTIAL DISCHARGE NEEDS:: Evaluations for further needs, potential transfer to [facility], follow up appointments. PATIENT/FAMILY EDUCATION NEEDS:: Review discharge instructions and limitations, discussion of self care needs including ask me three. ANTICIPATED BARRIERS TO DISCHARGE:: Availability for transfer to [facility], dialysis scheduled for Tuesday. TRANSPORTATION:: Determined by disposition. PLAN:: Anticipate Floridalma will transfer to [facility] once a bed becomes available. Her transportation will be EMS, coordinated by RN Cloud Subject Matter Expert. She will follow up with her PCP and discharge plan of care. CM will continue to follow.
[2022-07-06] MEDS: Aspirin 81 MG CHEW PO (11:34)
--- NOTE | 2022-07-06 12:33 | DSE_ITS ---
Date of service: 07/06/22 Time of Service: 12:33 DS: Diagnosis Discharge Diagnosis (1) Atrial fibrillation with rapid ventricular response: (2) NSTEMI (non-ST elevated myocardial infarction): Status: Acute (3) ESRD on hemodialysis: (4) CHF (congestive heart failure): (5) Hypertension: Discharge Plan Disposition Patient Disposition: [facility] Condition: Fair Discharge Details Reason For Visit: Rapid AFIB,Refractory to therapy,Elevated Troponi, Admit Date/Time: 07/05/22 14:09 Admit Provider: Kya Merlos Attending Provider: Kya Merlos [facility]: Ms Hermosillo is a 81 year old female with PMHx of Afib with difficult to control rates, on anticoagulation with eliquis, as well as h/o bradycardic cardiac arrest while on high dose of coreg at [facility] earlier this summer, ESRD on HD M F (still makes urine), multiple myeloma, who was a patiet on [facility] hospitalist service from 07/05/22 until 07/06/22 while awaiting a bed on [facility] cardiology service, having presented with palpitations, shortness of breath, and an episode of L-sided chest pain at home. Her HRs have been in 110s-120s at rest. Her ER workup revealed pulmonary edema. Of note, we do not know her LVEF. She was initiated on low dose metoprolol, per advice of [facility] cardiology, in addition to her home cardizem CD 240 mg PO daily. She did have mildly elevated troponins c/w type 2 NSTEMI in setting of her rapid rates. Ultimately, it is felt that the patient would benefit from being at a tertiary care facility with cardiology potentially starting rhythm control medications and where her fluid status could be managed with inpatient dialysis as the patient's response to intravenous diuretics here has not been clinically significant. The patient remains in Afib with HR in 120s and is agreeable to transfer. Her potassium is 3.8. Her troponin trend was 264->250->221. She is medically stable for transfer. Accepting MD at [facility] is Dr Collins. Care for patient as well as completion of her transfer summary took 45 minutes on day of transfer. Please, look at patient's MAR for the list of her inpatient medications. The list of medications below reflects her outpatient prescriptions. Home Meds and New Rx's Prescriptions: No Action diltiazem HCl [Cardizem CD] 240 mg Capsule,Extended Release 24hr 240 mg PO QAM fosinopril 40 mg Tablet 40 mg PO BID lanthanum 500 mg Tablet,Chewable 1,000 mg PO TID Rx Instructions: administer with food; chew thoroughly before swallowing Eliquis 2.5 mg Tablet 2.5 mg PO BID simvastatin 20 MG tablet 20 mg PO HS Discharge Instructions Instructions: A-fib (Atrial Fibrillation) (DC) Stand Alone Forms: Nursing Discharge Form Referrals: Truong Breaux [Primary Care Provider] - Activity:: Activity as Tolerated Diet:: renal Discharge Orders Discharge Orders: Discharge Order (Routine); Ordered 07/06/22 Ordered By: Kya Merlos DS: Summary Time Spent with Patient providing and/or coordinating discharge services: Greater than 30 minutes Status at Discharge Functional status at discharge: independent ambulation Overall status at discharge: patient is not back to baseline Mental Status: mental status grossly normal Speech and Movement: speech and movement normal Mood: congruent mood Affect: normal affect Exam Narrative Exam Narrative: General: Pleasant elderly female who is sitting up at the edge of the bed, A&Ox3, NAD, on RA HEENT: EOMI, MMM Cardiovascular: irregularly irregular rhythm, tachycardic, no m/r/g Lungs: slight rales at B bases Gastrointestinal: soft, nontender, nondistended Extremities: +1 BLE edema, trace pedal pulses B, I am unable to feel RUE radial pulse; RUE AVF without bruit/thrill; L radial pulse preserved. Psych Mental Status: mental status grossly normal Speech and Movement: speech and movement normal Mood: congruent mood Affect: normal affect DS: Data Vitals/I&O Vitals and I&O: Vital Signs Temperature 36.8 C 07/06/22 10:46 Temperature Source Temporal Artery Scan 07/06/22 10:46 Pulse 122 H 07/06/22 10:46 Pulse Rhythm Irregular 07/06/22 11:36 Pulse 115 H 07/05/22 15:20 Respiratory Rate 16 07/06/22 10:46 Respiratory Effort Non-Labored 07/06/22 11:36 Respiratory Depth Normal 07/06/22 11:36 Respiratory Pattern Normal 07/06/22 11:36 Blood Pressure 110/64 07/06/22 12:09 Blood Pressure Mean 117 07/05/22 15:15 Blood Pressure Position Sitting 07/05/22 09:29 Pulse Oximetry 94 07/06/22 10:46 Oxygen Delivery Method Room Air 07/06/22 10:46 Oxygen Flow Rate 0 07/06/22 10:46 Pain Level 0 07/06/22 10:46 Comment 07/06/22 06:49 Intake & Output 07/05/22 07/06/22 07/06/22 23:59 11:59 23:59 Intake Total 600 / 600 Output Total 100 / 100 300 / 300 Balance -100 / -100 300 / 300 Weight 56.8 kg 53.2 kg Intake: Oral 600 / 600 Output: Urine 100 / 100 300 / 300 Other: Urine Color Straw Yellow Urine Appearance Clear Clear Urine Odor Normal Comment unable to assess Voiding Methods Toilet Toilet Data Completed and Pending Completed studies during hospitalization [Text1]: CXR: Findings suggested fluid overload/congestive heart failure with bilateral pleural effusions and pulmonary venous congestion.? Labs on day of discharge: Labs from last 24 hours 07/06/22 07/06/22 07/06/22 06:30 06:30 05:35 WBC 7.86 RBC 3.59 L Hgb 11.2 Hct 35.3 L MCV 98 H MCH 31.2 MCHC 31.7 L RDW 14.7 H Plt Count 200 MPV 11.2 H Immature Gran % 0.5 Neutrophils % 84.8 Lymphocytes % 7.0 Monocytes % 5.2 Eosinophils % 2.0 Basophils % 0.5 Nucleated RBC % 0.0 Absolute Neutrophils 6.66 Absolute Lymphocytes 0.55 L Absolute Monocytes 0.41 Absolute Eosinophils 0.16 Absolute Basophils 0.04 Sodium 139 Cancelled Potassium 3.8 Cancelled Chloride 97 L Cancelled Carbon Dioxide 29.5 Cancelled Anion Gap 12.5 H Cancelled BUN 37 H Cancelled Creatinine 4.6 H* D Cancelled Estimated GFR/1.73 m2 9.19 Cancelled Glucose 83 Cancelled Calcium 9.1 Cancelled Magnesium 2.4 Troponin I SARS-CoV-2 (PCR) 07/05/22 07/05/22 07/05/22 18:21 13:06 10:54 WBC RBC Hgb Hct MCV MCH MCHC RDW Plt Count MPV Immature Gran % Neutrophils % Lymphocytes % Monocytes % Eosinophils % Basophils % Nucleated RBC % Absolute Neutrophils Absolute Lymphocytes Absolute Monocytes Absolute Eosinophils Absolute Basophils Sodium Potassium Chloride Carbon Dioxide Anion Gap BUN Creatinine Estimated GFR/1.73 m2 Glucose Calcium Magnesium Troponin I 221 H* 250 H* SARS-CoV-2 (PCR) Negative PFSH All Active Problems (Updated 07/06/22 @ 13:22 by Kya Merlos MD) NSTEMI (non-ST elevated myocardial infarction) (Acute) Discharge planning issues (Acute) Medical History (Updated 07/06/22 @ 13:22 by Kya Merlos MD) Atrial fibrillation with rapid ventricular response anticoagulated with eliquis Bradycardic cardiac arrest felt to be due to excessive beta blockade while on coreg CHF (congestive heart failure) ESRD on hemodialysis 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 Hyperlipidemia Hypertension Multiple myeloma Surgical History (Updated 07/05/22 @ 15:59 by Kya Merlos MD) AVF (arteriovenous fistula) failed; RUE History of hysterectomy with bilateral oophorectomy S/P dialysis catheter insertion L chest TDC Family History (Updated 07/05/22 @ 16:03 by Kya Merlos MD) Mother Heart disease Hypertension Father Diabetes Social History (Updated 07/05/22 @ 16:05 by Kya Merlos MD) Smoking/Tobacco Use Status: Never Smoking risk assessment performed?: Yes Alcohol Intake: current Alcohol Intake frequency: a few times a month Drug use: Never Substance use type: does not use Do you feel safe at home: Yes Do you feel safe in your relationship?: Yes
[2022-07-06] MEDS: Simvastatin 20 MG TAB PO (21:37)
== END 2022-07-06 22:02 | disposition short-term general hospital (02) | DRG 280 ==
LOC: ER 15:11 → MS 15:45
PROVIDERS: Admitting Provider Internal Medicine; Emergency Provider Physician Assistant; PCP Family Medicine; Visit Provider Internal Medicine
DX: I48.91 Unspecified atrial fibrillation (principal); N18.6 End stage renal disease; I21.A1 Myocardial infarction type 2; I13.2 Hypertensive heart and chronic kidney disease with heart failure and with stage 5 chronic kidney disease, or end stage renal disease; C90.00 Multiple myeloma not having achieved remission; I50.9 Heart failure, unspecified; Z99.2 Dependence on renal dialysis; Z79.01 Long term (current) use of anticoagulants; Z86.74 Personal history of sudden cardiac arrest
CPT/HCPCS: 36415; 80048; 80053; 87635; 93005; 96374; 96375; 99285; 71046; 83735; 84439; 84443; 84484; 85025; 85610; 85730; 93010; 99223; 99239; J1940; J3490

== ENCOUNTER 2022-07-23 08:09 | Emergency (ER) | payer MEDICARE, SELFPAY ==
[2022-07-23] VITALS (31 sets, daily range): BP systolic 114–149; BP diastolic 84–110; PULSE 90–120; RESP 18–35; TEMP 36.6; O2SAT 93
--- NOTE | 2022-07-23 08:00 | RT.EKG_ITS ---
APPROVED REPORT Exam: Resting ECG Reason for Exam: TACHYCARDIA Patient Location: E HR:118 bpm ECG Measurements Heart Rate 118 AXIS NE 181 P 46 QRSd 100 QRS -37 QT 327 T 138 QTc 459 Conclusion Sinus tachycardia. Multiple ventricular premature complexes. LVH with repolarization abnl.
--- NOTE | 2022-07-23 08:15 | DI.RAD_ITS ---
Exam(s) XR PORTABLE CHEST AP EXAM: XR PORTABLE CHEST AP CLINICAL HISTORY: SOB, Palpitations, Hx of CHF TECHNIQUE: 2D digital imaging was performed of the chest. One image was obtained. An AP view was ob tained. COMPARISON: CR XR CHEST 2V PA LATERAL from 07/05/2022 FINDINGS: MEDIASTINUM: Normal. HEART: Mild cardiomegaly. PULMONARY VASCULATURE: Pulmonary venous congestion. LUNGS: Bilateral interstitial infiltrates suggesting pulmonary edema. PLEURAL SPACE: Bilateral pleural effusions. No pneumothorax. BONE:Within normal limits for the patient's age. OTHER FINDINGS:There is again seen an indwelling central venous catheter. There is a stent in the so ft tissues of the right upper extremity again seen. IMPRESSION: Findings suggestive congestive heart failure with pulmonary edema, pleural effusions and pulmonary ve nous congestion. DATA REPOSITORY: RADIATION DOSE DELIVERED:
--- NOTE | 2022-07-23 08:17 | W.ED.GENAD ---
Discharge Plan Disposition Patient Disposition: HOME Condition: Stable Discharge Details Clinical Impression: Acute dyspnea, Palpitations Primary Care Provider: Truong Breaux ED Provider: Dianna Sanon Home Meds and New Rx's Prescriptions: New cephalexin 500 mg tablet 500 mg PO BID 7 Days Qty: 14 0RF Continued diltiazem HCl [Cardizem CD] 240 mg Capsule,Extended Release 24hr 240 mg PO QAM fosinopril 40 mg Tablet 40 mg PO BID lanthanum 500 mg Tablet,Chewable 1,000 mg PO TID Rx Instructions: administer with food; chew thoroughly before swallowing Eliquis 2.5 mg Tablet 2.5 mg PO BID simvastatin 20 MG tablet 20 mg PO HS aspirin 81 mg Tablet,Delayed Release (Dr/Ec) 81 mg PO DAILY metoprolol succinate 25 mg tablet extended release 24 hr 25 tab PO DAILY B complex with C 20-folic acid 1 mg Capsule 1 cap PO DAILY albuterol sulfate 90 mcg/actuation HFA aerosol inhaler 2 inh INHALATION Q6H cholecalciferol (vitamin D3) 50 mcg (2,000 unit) Capsule 50 mcg PO DAILY Discharge Instructions Instructions: Heart Palpitations (ED), Dyspnea (ED) Additional Instructions: X-ray shows some fluid overload your lungs. You were given a diuretic called Lasix 80 mg here in the ER. This will make you have to urinate more often. Please discuss this with your doctor. Please take the antibiotics twice daily as directed. Take it with food or yogurt. Follow up with primary care provider in 3-5 days. Return to ED sooner if any worsening or concerns. Increase oral fluids. Referrals: Truong Breaux [Primary Care Provider] - 3 days Discharge Data Discharge Date/Time-TO BE ENTERED AT DEPARTURE: 07/23/22 11:24 Medical Decision Making Cardiac work-up ordered including serial troponins, chest x-ray. Will consider giving patient an additional small dose of her Cardizem or metoprolol. 0907: Diltiazem 2.5 mg IV given heart rate down from 1 20-110 O2 sat 92% on room air blood pressure is 150/99 Heart rate has improved to 98 blood pressure is 132/99 O2 sat 94% room air. White blood cell 15.98, platelets 53, absolute neutrophils 14.11, sodium 132 chloride 95, BUN/creatinine 30 and 3.8 glucose 122 proBNP is greater than 35,000 initial troponin within normal limits. 1048: Patient reevaluation, she appears much more comfortable breathing eupneic. Patient states that she feels better. Heart rate has improved. I did discuss lab results with patient and discussed trial of antibiotics for possible pneumonia. Chest x-ray shows findings suggestive of congestive heart failure with pulmonary edema, pleural effusions and pulmonary venous congestion. Patient does make urine, will give Furosemide 80mg IV x 1. Patient discharged with follow-up care and strict return instructions. This text was generated using [employer] system, please disregard any oddities of phrase or misspellings. HPI General Mode of arrival: wheelchair. Date/Time Provider Initiated Documentation: 07/23/22 08:13. Limitations to Documentation: no limitations. Information obtained by: patient, RN/MD (Dialysis Center) and old records reviewed. HPI Narrative: 81-year-old female presents to the ER with chief complaint of racing heart and shortness of breath which occurred during dialysis this morning. Patient states that she was in the middle of her treatment when she felt her heart racing and short of breath. She does have a history of end-stage renal disease, A. fib with RVR, NSTEMI, hyperlipidemia, hypertension, CHF and multiple myeloma. She also has a history of cardiac arrest earlier this summer at [facility]. She denies any chest pain upon arrival. She reports that she did take her normal medications this morning including Cardizem and metoprolol 25 mg which she was placed on from her recent hospitalization on the . She was admitted here for NSTEMI and subsequently transferred to [facility]. They report that she is scheduled to have a Holter monitor for 2 weeks placed on Tuesday. She does have a dialysis catheter to her left anterior chest wall. She does have dialysis Tuesday. Related Data Home Medications Medication Instructions Recorded Confirmed simvastatin 20 mg tablet 20 mg PO HS 05/11/17 07/23/22 apixaban 2.5 mg tablet (Eliquis) 2.5 mg PO BID 07/05/22 07/23/22 diltiazem HCl 240 mg 240 mg PO QAM 07/05/22 07/23/22 capsule,extended release 24 hr (Cardizem CD) fosinopril 40 mg tablet 40 mg PO BID 07/05/22 07/23/22 lanthanum 500 mg chewable tablet 1,000 mg PO TID 07/05/22 07/23/22 albuterol sulfate 90 mcg/actuation 2 inh inhalation Q6H 07/23/22 07/23/22 aerosol inhaler aspirin 81 mg tablet,delayed 81 mg PO DAILY 07/23/22 07/23/22 release cephalexin 500 mg tablet 500 mg PO BID 7 days #14 tabs 07/23/22 cholecalciferol (vitamin D3) 50 50 mcg PO DAILY 07/23/22 07/23/22 mcg (2,000 unit) capsule metoprolol succinate 25 mg 25 tab PO DAILY 07/23/22 07/23/22 tablet,extended release 24 hr vitamin B complex and vitamin C 1 cap PO DAILY 07/23/22 07/23/22 no.20-folic acid 1 mg capsule Previous Rx's Medication Instructions Recorded cephalexin 500 mg tablet 500 mg PO BID 7 days #14 tabs 07/23/22 Allergies Allergy/AdvReac Type Severity Reaction Status Date / Time No Known Allergies Allergy Unverified 07/23/22 08:28 General MARLENY: 2 Review of Systems All systems reviewed & are unremarkable except as noted in HPI and below Cardiovascular Cardiovascular: Denies chest pain, Reports rapid heart rate and Reports dyspnea Respiratory Respiratory: Denies chest congestion, Denies cough, Denies hemoptysis and Reports dyspnea Gastrointestinal Gastrointestinal: Denies abdominal pain, Denies diarrhea, Denies nausea and Denies vomiting Neurologic Neurologic: Denies abnormal speech PFSH All Active Problems (Updated 07/23/22 @ 10:44 by Dianna Sanon NP) Acute dyspnea (Acute) Palpitations (Acute) NSTEMI (non-ST elevated myocardial infarction) (Acute) Medical History Atrial fibrillation with rapid ventricular response anticoagulated with eliquis Bradycardic cardiac arrest felt to be due to excessive beta blockade while on coreg CHF (congestive heart failure) ESRD on hemodialysis 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 Hyperlipidemia Hypertension Multiple myeloma Surgical History AVF (arteriovenous fistula) failed; RUE History of hysterectomy with bilateral oophorectomy S/P dialysis catheter insertion L chest TDC Family History Mother Heart disease Hypertension Father Diabetes Social History Smoking/Tobacco Use Status: Never Smoking risk assessment performed?: Yes Alcohol Intake: current Alcohol Intake frequency: a few times a month Drug use: Never Substance use type: does not use Do you feel safe at home: Yes Do you feel safe in your relationship?: Yes Exam Const General: cooperative, well developed, well groomed and frail appearing Nutritional Appearance: average body habitus Orientation: alert, awake and oriented x3 Chest Other: Dialysis shunt noted to left anterior chest wall Resp Effort & Inspection: able to speak in complete sentences, no audible wheezes, no cough, not labored, no nasal flaring, no pursed lip breathing, no respiratory distress, no segmental paradox chest wall movement and tachypneic Auscultation: clear to auscultation bilaterally Cardio Rate: tachycardic (118 regular) Skin General skin exam: pallor Lesions: no lesions Rashes: no rashes Neuro General: patient alert, patient awake, patient oriented x3, moves all extremities and no focal motor deficits
[2022-07-23] MEDS: dilTIAZem 25 MG/5 ML VIAL IVP (08:45)
[2022-07-23 08:56] LABS: Absolute Basophil Count 0.06 10^3/uL (0.0-0.2); Absolute Monocyte Count 0.72 10^3/uL (0.1-0.8); Absolute Neutrophil Count 14.11 10^3/uL (1.2-6.7); Basophils % 0.4; Eosinophils % 0.8; HCT 34.7 % (36.0-46.0); HGB 11.3 g/dL (11.2-15.7); Immature Grans % 0.6; Lymphocytes % 5.4; MCH 31.8 pg (27.0-33.0); MCHC 32.6 % (32.0-36.0); MCV 98 fL (80-95); MPV 12.2 fL (8.0-11.0); Monocytes % 4.5; Neutrophils % 88.3; RBC 3.55 10^6/uL (3.93-5.22); RDW 16.4 % (11.7-14.6); RDW-SD 58.1 fL; WBC 15.98 10^3/uL (4.4-10.8)
[2022-07-23 09:05] LABS: Absolute Eosinophil Count 0.13 10^3/uL (0.0-0.7); Absolute Lymphocyte Count 0.86 10^3/uL (1.2-3.4)
[2022-07-23 09:17] LABS: Platelet Count 53 10^3/uL (130-400)
[2022-07-23 09:22] LABS: ALT 33 U/L (14-59); AST 32 U/L (15-37); Albumin 3.8 g/dL (3.4-5.0); Alkaline Phosphatase 100 U/L (46-116); Anion Gap 7.4 mmol/L (3-11); BUN 30 mg/dL (7-18); Bilirubin, Total 0.8 mg/dL (0.2-1.0); CO2 29.6 mmol/L (21.0-32.0); Calcium 9.3 mg/dL (8.5-10.1); Chloride 95 mmol/L (98-107); Estimated GFR 11.55 (mL/min/1.73m2); Glucose 122 mg/dL (74-106); Magnesium 2.4 mg/dL (1.8-2.4); Potassium 3.5 mmol/L (3.5-5.1); Sodium 132 mmol/L (136-145); Total Protein 7.4 g/dL (6.4-8.2); Troponin I 58 ng/L (<or=60)
[2022-07-23 09:24] LABS: CREATININE 3.8 mg/dL (0.55-1.02)
[2022-07-23 09:38] LABS: Source Nasal/Nares
[2022-07-23 09:42] LABS: NT-proBNP > 35000 pg/mL (<300)
[2022-07-23 10:12] LABS: COVID-19 PCR Negative (Negative)
[2022-07-23] MEDS: Cephalexin 500 MG CAP, 2 CAPS/BTL PO (10:52)
[2022-07-23] MEDS: Cephalexin 500 MG CAP PO (10:52)
[2022-07-23] MEDS: Furosemide 100 MG/10 ML VIAL 80 MG IVP (11:02)
== END 2022-07-23 11:24 | disposition home or self-care (01) ==
PROVIDERS: Emergency Provider Registered Nurse Emergency; PCP Family Medicine
DX: R06.02 Shortness of breath (principal); R00.2 Palpitations; I13.2 Hypertensive heart and chronic kidney disease with heart failure and with stage 5 chronic kidney disease, or end stage renal disease; I50.9 Heart failure, unspecified; N18.6 End stage renal disease; I25.2 Old myocardial infarction; I48.91 Unspecified atrial fibrillation; Z79.01 Long term (current) use of anticoagulants; Z99.2 Dependence on renal dialysis; Z20.822 Contact with and (suspected) exposure to COVID-19
CPT/HCPCS: 36415; 80053; 87635; 93005; 96374; 96375; 99284; 71045; 83735; 83880; 84484; 85025; 93010; J1940

== ENCOUNTER 2022-07-26 09:16 | Emergency (ER) | payer MEDICARE, SELFPAY ==
[2022-07-26] VITALS (45 sets, daily range): BP systolic 107–150; BP diastolic 68–93; PULSE 81–115; RESP 13–34; TEMP 36.7; O2SAT 100
--- NOTE | 2022-07-26 09:15 | RT.EKG_ITS ---
APPROVED REPORT Exam: Resting ECG Reason for Exam: sob Patient Location: E HR:111 bpm ECG Measurements Heart Rate 111 AXIS TN 206 P 47 QRSd 107 QRS -25 QT 382 T 174 QTc 518 Conclusion Sinus tachycardia...rate> 99 LVH with secondary repolarization abnormality...multi-LVH criteria, abnrm ST-T Prolonged QT interval...QTc >500mS sinus tachycardia at 111, normal axis, LVH with repolarization abnormalities as seen on prior 2, no STEMI, nondiagnostic EKG
--- NOTE | 2022-07-26 09:15 | DI.RAD_ITS ---
Exam(s) XR PORTABLE CHEST AP EXAM: XR PORTABLE CHEST AP CLINICAL HISTORY: SOB. TECHNIQUE: 2D digital imaging was performed. COMPARISON: CR XR PORTABLE CHEST AP from 07/23/2022 FINDINGS: Single AP portable view. Distal tip of the dual lumen catheter is in the right atrium, unchanged Cardiomegaly again noted. Mediastinum not widened. Moderate-large left pleural effusion and moderate size right pleural effusion are basically unchanged from days ago. Pulmonary venous hypertension pattern appears mildly improved. However, there are s ubtle nodular infiltrates in the mid right lung zone noted. Endovascular stents are noted in the right axillary vein region, previously present. IMPRESSION: Mild improvement in the appearance of the lung feldman but the size of the pleural effusions is not di minished. Also possible nodular infiltrates in the right lung. DATA REPOSITORY: RADIATION DOSE DELIVERED: All CT scans at this facility use at least one of these dose optimization techniques: automated exposure control; mA and/or kV adjustment per patient size (includes targeted e xams where dose is matched to clinical indication); or iterative reconstruction.
--- NOTE | 2022-07-26 09:33 | W.ED.GENAD ---
Discharge Plan Disposition Patient Disposition: AGAINST MEDICAL ADVICE Discharge Details Clinical Impression: Pneumonia, Shortness of breath, Elevated troponin Primary Care Provider: Truong Breaux ED Provider: Shaylee Molina Home Meds and New Rx's Prescriptions: Continued diltiazem HCl [Cardizem CD] 240 mg Capsule,Extended Release 24hr 240 mg PO QAM fosinopril 40 mg Tablet 40 mg PO BID lanthanum 500 mg Tablet,Chewable 1,000 mg PO TID Rx Instructions: administer with food; chew thoroughly before swallowing Eliquis 2.5 mg Tablet 2.5 mg PO BID simvastatin 20 MG tablet 20 mg PO HS aspirin 81 mg Tablet,Delayed Release (Dr/Ec) 81 mg PO DAILY metoprolol succinate 25 mg tablet extended release 24 hr 25 tab PO DAILY B complex with C 20-folic acid 1 mg Capsule 1 cap PO DAILY albuterol sulfate 90 mcg/actuation HFA aerosol inhaler 2 inh INHALATION Q6H cholecalciferol (vitamin D3) 50 mcg (2,000 unit) Capsule 50 mcg PO DAILY Discontinued cephalexin 500 mg tablet 500 mg PO BID 7 Days Qty: 14 0RF Discharge Instructions Instructions: Doxycycline (By mouth), Dyspnea (ED), Pneumonia (ED) Additional Instructions: You have elected to leave the emergency department AGAINST MEDICAL ADVICE. The risks of doing so are , significant worsening of your condition, and/or permanent disability. You may return to the emergency department anytime if you change your mind. Please return immediately to the emergency department if you develop any new or worsening symptoms, if your condition does not improve as expected, or if you become otherwise concerned. It is extremely important that you call soon as possible to make an appointment to be seen in follow-up for this visit by your primary care doctor, and that you see your position classification manager this Tuesday at [facility] as scheduled. Referrals: Truong Breaux [Primary Care Provider] - Discharge Data Discharge Date/Time-TO BE ENTERED AT DEPARTURE: 07/26/22 14:02 Medical Decision Making Concern for worsening PNA, covid, ACS, PE, less likely volume overload given dialysis JPTA, other. Exam/hx at this time is not c/w acute aortic pathology, sepsis. Plan for EKG, CXR, telemetry, screening labs, IV placement. Will monitor and reassess. Pt with elevated d-dimer, troponin. No chest pain. Symptoms unchanged, unclear significant in setting of ESRD. CXR shows possible PNA. Plan for abx. Plan for admission for further eval and treatment. Hospitalist at [facility] refused 2/2 dialysis patient. Plan for transfer for further evaluation. 11:01 [facility] transfer center contacted, Pt refused for transfer 2/2 capacity 11:03 [facility] transfer center contacted, Pt refused for transfer 2/2 capacity. Pt reporting symptoms have resolved completely. She denies any sense of SOB, denies orthopnea. States that she feels well and would like to go home. Troponin rising, CT chest not yet performed, admission indicated. I had a lengthy discussion with the Pt re: plan for CT chest and transfer and admission to another hospital for further eval and treatment. I stated that risks of leaving against medical advice include , permanent disability. Pt verbalized understanding of the risks and continued to refuse CT, transfer, or further treatment in the ED. Pt with decision making capacity. I had a discussion with Patient regarding return to emergency department precautions, home care, and importance of outpatient follow-up. Pt verbalizes understanding of the plan and is amenable. Patient discharged to home with clear plan for outpatient follow-up. All questions were answered. Disposition decision was made weighing the risks and benefits of hospitalization versus outpatient treatment, the risk for further decompensation, and the patient's wishes. Medical Records Medical records reviewed: Yes I reviewed the patient's medical records. Imaging Data Radiologic Study: Attestation: I personally reviewed and interpreted this imaging study as follows: Radiologist's impression: EXAM:? XR PORTABLE CHEST AP CLINICAL HISTORY: ? SOB. ? TECHNIQUE:? 2D digital imaging was performed. COMPARISON:? CR XR PORTABLE CHEST AP from 07/23/2022 FINDINGS: Single AP portable view. Distal tip of the dual lumen catheter is in the right atrium, unchanged Cardiomegaly again noted.? Mediastinum not widened. Moderate-large left pleural effusion and moderate size right pleural effusion are basically unchanged from days ago.? Pulmonary venous hypertension pattern appears mildly improved.? However, there are subtle nodular infiltrates in the mid right lung zone noted. Endovascular stents are noted in the right axillary vein region, previously present. IMPRESSION: Mild improvement in the appearance of the lung feldman but the size of the pleural effusions is not diminished.? Also possible nodular infiltrates in the right lung. Lab Data Lab results reviewed: Yes I reviewed the patient's lab results. Labs: Laboratory Tests Range/Units 07/26/22 07/26/22 07/26/22 09:48 09:48 09:48 WBC (4.4-10.8) 10^3/uL 15.69 H RBC (3.93-5.22) 10^6/uL 3.48 L Hgb (11.2-15.7) g/dL 11.0 L Hct (36.0-46.0) % 34.0 L MCV (80-95) fL 98 H MCH (27.0-33.0) pg 31.6 MCHC (32.0-36.0) % 32.4 RDW (11.7-14.6) % 16.3 H Plt Count (130-400) 10^3/uL 54 L MPV (8.0-11.0) fL 11.6 H Immature Gran % 1.2 Neutrophils % 90.6 Lymphocytes % 2.3 Monocytes % 4.7 Eosinophils % 1.0 Basophils % 0.2 Nucleated RBC % (0.0-0.3) % 0.0 Absolute Neutrophils (1.2-6.7) 10^3/uL 14.22 H Absolute Lymphocytes (1.2-3.4) 10^3/uL 0.36 L Absolute Monocytes (0.1-0.8) 10^3/uL 0.74 Absolute Eosinophils (0.0-0.7) 10^3/uL 0.16 Absolute Basophils (0.0-0.2) 10^3/uL 0.03 D-Dimer (<500) ng/mlFEU 4192 H Sodium (136-145) mmol/L 138 Potassium (3.5-5.1) mmol/L 3.2 L Chloride (98-107) mmol/L 96 L Carbon Dioxide (21.0-32.0) mmol/L 31.5 Anion Gap (3-11) mmol/L 10.5 BUN (7-18) mg/dL 27 H Creatinine (0.55-1.02) mg/dL 3.5 H Est GFR (CKD-EPI 2020) (mL/min/1.73m2) 12.75 Glucose (74-106) mg/dL 85 Calcium (8.5-10.1) mg/dL 9.3 Magnesium (1.8-2.4) mg/dL 2.2 Total Bilirubin (0.2-1.0) mg/dL 0.8 AST (15-37) U/L 22 ALT (14-59) U/L 36 Alkaline Phosphatase (46-116) U/L 98 Troponin I (<or=60) ng/L 74 H* NT-Pro-B Natriuret Pep (<300) pg/mL > 30339 H Total Protein (6.4-8.2) g/dL 7.5 Albumin (3.4-5.0) g/dL 3.8 COVID-19 Source SARS-CoV-2 (PCR) (Negative) Influenza Type A (PCR) (Negative) Influenza Type B (PCR) (Negative) RSV (PCR) (Negative) Range/Units 07/26/22 07/26/22 07/26/22 09:48 09:49 12:53 WBC (4.4-10.8) 10^3/uL RBC (3.93-5.22) 10^6/uL Hgb (11.2-15.7) g/dL Hct (36.0-46.0) % MCV (80-95) fL MCH (27.0-33.0) pg MCHC (32.0-36.0) % RDW (11.7-14.6) % Plt Count (130-400) 10^3/uL MPV (8.0-11.0) fL Immature Gran % Neutrophils % Lymphocytes % Monocytes % Eosinophils % Basophils % Nucleated RBC % (0.0-0.3) % Absolute Neutrophils (1.2-6.7) 10^3/uL Absolute Lymphocytes (1.2-3.4) 10^3/uL Absolute Monocytes (0.1-0.8) 10^3/uL Absolute Eosinophils (0.0-0.7) 10^3/uL Absolute Basophils (0.0-0.2) 10^3/uL D-Dimer (<500) ng/mlFEU Sodium (136-145) mmol/L Potassium (3.5-5.1) mmol/L Chloride (98-107) mmol/L Carbon Dioxide (21.0-32.0) mmol/L Anion Gap (3-11) mmol/L BUN (7-18) mg/dL Creatinine (0.55-1.02) mg/dL Est GFR (CKD-EPI 2020) (mL/min/1.73m2) Glucose (74-106) mg/dL Calcium (8.5-10.1) mg/dL Magnesium (1.8-2.4) mg/dL Total Bilirubin (0.2-1.0) mg/dL AST (15-37) U/L ALT (14-59) U/L Alkaline Phosphatase (46-116) U/L Troponin I (<or=60) ng/L 87 H* NT-Pro-B Natriuret Pep (<300) pg/mL Cancelled Total Protein (6.4-8.2) g/dL Albumin (3.4-5.0) g/dL COVID-19 Source Not Applicable SARS-CoV-2 (PCR) (Negative) Negative Influenza Type A (PCR) (Negative) Negative Influenza Type B (PCR) (Negative) Negative RSV (PCR) (Negative) Negative ECG Data Attestation: I personally reviewed and interpreted this ECG (s) as follows: Interpretation: EKG shows sinus tachycardia at 111, normal axis, LVH with repolarization abnormalities as seen on prior 07/23/2022, prolonged QT interval, prolonged QT interval, no STEMI, nondiagnostic EKG HPI General Mode of arrival: EMS. Date/Time Provider Initiated Documentation: 07/26/22 09:29. Limitations to Documentation: no limitations. Information obtained by: patient, RN notes reviewed and old records reviewed. HPI Narrative: Floridalma Hermosillo is a 81 y/o woman with history of atrial fibrillation, CHF, end-stage renal disease on hemodialysis, hyperlipidemia, hypertension, multiple myeloma status post bradycardic cardiac arrest several months ago presenting to emergency department with shortness of breath. Patient reports that she was at her scheduled dialysis session today when she began to feel short of breath. Patient reports that this is happened to her several times in the past, and she has not sought medical care. Patient reports that she received her full dialysis session (this was confirmed by dialysis center). Patient reports that she continues to feel short of breath at this time. She denies any pain, fever, vomiting, diarrhea, numbness, weakness, edema. Patient does report mild cough over the past few days. Patient reports that she normally has some orthopnea, however that seems worse currently. Has been eating and drinking as usual. Patient reports that she continues to make urine. Pt recently admitted here and transferred to [facility] cardiology service for afib with RVR. Pt also states she was diagnosed with PNA and started on keflex which she has been taking. Related Data Home Medications Medication Instructions Recorded Confirmed simvastatin 20 mg tablet 20 mg PO HS 05/11/17 07/26/22 apixaban 2.5 mg tablet (Eliquis) 2.5 mg PO BID 07/05/22 07/26/22 diltiazem HCl 240 mg 240 mg PO QAM 07/05/22 07/26/22 capsule,extended release 24 hr (Cardizem CD) fosinopril 40 mg tablet 40 mg PO BID 07/05/22 07/26/22 lanthanum 500 mg chewable tablet 1,000 mg PO TID 07/05/22 07/26/22 albuterol sulfate 90 mcg/actuation 2 inh inhalation Q6H 07/23/22 07/26/22 aerosol inhaler aspirin 81 mg tablet,delayed 81 mg PO DAILY 07/23/22 07/26/22 release cholecalciferol (vitamin D3) 50 50 mcg PO DAILY 07/23/22 07/26/22 mcg (2,000 unit) capsule metoprolol succinate 25 mg 25 tab PO DAILY 07/23/22 07/26/22 tablet,extended release 24 hr vitamin B complex and vitamin C 1 cap PO DAILY 07/23/22 07/26/22 no.20-folic acid 1 mg capsule Allergies Allergy/AdvReac Type Severity Reaction Status Date / Time No Known Allergies Allergy Unverified 07/26/22 09:27 General Stated Complaint: SOB MARLENY: 2 Review of Systems Narrative: Constitutional: denies fevers Eyes: denies eye pain ENT: denies ear pain, dental pain, sore throat Cardiovascular: denies chest pain, edema Respiratory: reports SOB, cough GI: denies abdominal pain, vomiting, diarrhea : denies flank pain MSK: denies back pain, neck pain, arthralgias, myalgias Skin: denies rash Neuro: denies headaches, numbness, weakness PFSH All Active Problems Acute dyspnea (Acute) Palpitations (Acute) Pneumonia (Acute) Shortness of breath (Acute) Elevated troponin (Acute) NSTEMI (non-ST elevated myocardial infarction) (Acute) Medical History Atrial fibrillation with rapid ventricular response anticoagulated with eliquis Bradycardic cardiac arrest felt to be due to excessive beta blockade while on coreg CHF (congestive heart failure) ESRD on hemodialysis 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 Hyperlipidemia Hypertension Multiple myeloma Surgical History AVF (arteriovenous fistula) failed; RUE History of hysterectomy with bilateral oophorectomy S/P dialysis catheter insertion L chest TDC Family History Mother Heart disease Hypertension Father Diabetes Social History Smoking/Tobacco Use Status: Never Smoking risk assessment performed?: Yes Alcohol Intake: current Alcohol Intake frequency: a few times a month Drug use: Never Substance use type: does not use Do you feel safe at home: Yes Do you feel safe in your relationship?: Yes Exam Narrative Exam Narrative: Constitutional: well and [id number], pleasant, conversing normally HENT: head atraumatic/normocephalic/normal inspection, mucous membranes moist Eyes: conjunctiva normal, sclera normal, pupils 3mm b/l Neck: no stridor, normal ROM, trachea midline Chest: normal inspection Resp: normal work of breathing, somewhat coarse breath sounds throughout, no rales, no wheeze Cardio: normal rate, normal rhythm, no murmur appreciated GI: abdomen soft, non-tender, non-distended Back: normal inspection, no rash Skin: warm, dry, normal color, no rash Neuro: alert, not altered, grossly non-focal, normal tone Ext: no edema, no posterior calf TTP Psych: normal mood, normal affect, normal behavior Course Vital Signs Vital signs: Vital Signs Temperature 36.7 C 07/26/22 09:10 Pulse 110 H 07/26/22 09:10 Respiratory Rate 13 07/26/22 09:10 Blood Pressure 107/91 H 07/26/22 09:10 Pulse Oximetry 100 07/26/22 09:10 Temperature 36.7 C 07/26/22 09:10 Temperature Source Temporal Artery Scan 07/26/22 09:10 Pulse 110 H 07/26/22 09:10 Respiratory Rate 34 H 07/26/22 09:22 Respiratory Effort Labored 07/26/22 09:22 Respiratory Depth Shallow 07/26/22 09:22 Respiratory Pattern Normal 07/26/22 09:22 Blood Pressure 107/91 H 07/26/22 09:10 Blood Pressure Position Sitting 07/26/22 09:10 Pulse Oximetry 100 07/26/22 09:10 Oxygen Delivery Method Nasal Cannula 07/26/22 09:10 Oxygen Flow Rate 2.5 07/26/22 09:10 Pain Level 0 07/26/22 09:22
[2022-07-26 10:02] LABS: Abs Immature Grans 0.19 10^3/uL (0.0-0.06); Absolute Basophil Count 0.03 10^3/uL (0.0-0.2); Absolute Eosinophil Count 0.16 10^3/uL (0.0-0.7); Absolute Lymphocyte Count 0.36 10^3/uL (1.2-3.4); Absolute Neutrophil Count 14.22 10^3/uL (1.2-6.7); Basophils % 0.2; Immature Grans % 1.2; Lymphocytes % 2.3; MCH 31.6 pg (27.0-33.0); MCHC 32.4 % (32.0-36.0); MCV 98 fL (80-95); MPV 11.6 fL (8.0-11.0); Monocytes % 4.7; Neutrophils % 90.6; RBC 3.48 10^6/uL (3.93-5.22); RDW 16.3 % (11.7-14.6); RDW-SD 58.4 fL; WBC 15.69 10^3/uL (4.4-10.8)
[2022-07-26 10:15] LABS: Absolute Monocyte Count 0.74 10^3/uL (0.1-0.8); Platelet Count 54 10^3/uL (130-400)
[2022-07-26 10:29] LABS: ALT 36 U/L (14-59); AST 22 U/L (15-37); Albumin 3.8 g/dL (3.4-5.0); Alkaline Phosphatase 98 U/L (46-116); Anion Gap 10.5 mmol/L (3-11); BUN 27 mg/dL (7-18); Bilirubin, Total 0.8 mg/dL (0.2-1.0); CO2 31.5 mmol/L (21.0-32.0); CREATININE 3.5 mg/dL (0.55-1.02); Calcium 9.3 mg/dL (8.5-10.1); Chloride 96 mmol/L (98-107); Estimated GFR 12.75 (mL/min/1.73m2); Glucose 85 mg/dL (74-106); Magnesium 2.2 mg/dL (1.8-2.4); Potassium 3.2 mmol/L (3.5-5.1); Sodium 138 mmol/L (136-145); Total Protein 7.5 g/dL (6.4-8.2)
[2022-07-26 10:31] LABS: NT-proBNP > 35000 pg/mL (<300); Troponin I 74 ng/L (<or=60)
[2022-07-26 10:33] LABS: D-Dimer 4192 ng/mlFEU (<500)
[2022-07-26 10:37] LABS: COVID-19 PCR Negative (Negative); Influenza A PCR Negative (Negative); Influenza B PCR Negative (Negative); RSV PCR Negative (Negative)
[2022-07-26] MEDS: AZITHROMYCIN 500 MG in Normal Saline 250 ML 250 MG IVPB (12:25)
[2022-07-26 13:26] LABS: Troponin I 87 ng/L (<or=60)
== END 2022-07-26 14:02 | disposition left against medical advice (07) ==
PROVIDERS: Emergency Provider Student in an Organized Health Care Education/Training Program; PCP Family Medicine
DX: J18.9 Pneumonia, unspecified organism (principal); R06.02 Shortness of breath; R77.8 Other specified abnormalities of plasma proteins; I13.0 Hypertensive heart and chronic kidney disease with heart failure and stage 1 through stage 4 chronic kidney disease, or unspecified chronic kidney disease; I50.9 Heart failure, unspecified; N18.6 End stage renal disease; I48.91 Unspecified atrial fibrillation; Z99.2 Dependence on renal dialysis; Z20.822 Contact with and (suspected) exposure to COVID-19
CPT/HCPCS: 36415; 80053; 87637; 93005; 96365; 96367; 99284; 99285; 71045; 83735; 83880; 84484; 85025; 85379; 93010; J0456; J0696

== ENCOUNTER 2022-09-06 06:54 | Outpatient (REF) | payer MEDICARE, SELFPAY ==
[2022-09-06 07:30] LABS: Abs Immature Grans 0.04 10^3/uL (0.0-0.06); Absolute Basophil Count 0.05 10^3/uL (0.0-0.2); Absolute Eosinophil Count 0.15 10^3/uL (0.0-0.7); Absolute Lymphocyte Count 0.65 10^3/uL (1.2-3.4); Absolute Neutrophil Count 8.07 10^3/uL (1.2-6.7); Basophils % 0.5; Eosinophils % 1.6; HCT 25.2 % (36.0-46.0); Immature Grans % 0.4; Lymphocytes % 6.8; MCH 33.5 pg (27.0-33.0); MCHC 31.7 % (32.0-36.0); MCV 105 fL (80-95); MPV 10.4 fL (8.0-11.0); Monocytes % 6.3; Neutrophils % 84.4; RBC 2.39 10^6/uL (3.93-5.22); RDW 15.3 % (11.7-14.6); RDW-SD 59.8 fL; WBC 9.56 10^3/uL (4.4-10.8)
[2022-09-06 07:42] LABS: ALT 28 U/L (14-59); AST 18 U/L (15-37); Albumin 3.1 g/dL (3.4-5.0); Alkaline Phosphatase 103 U/L (46-116); BUN 68 mg/dL (7-18); Bilirubin, Total 0.4 mg/dL (0.2-1.0); Chloride 101 mmol/L (98-107); Estimated GFR 6.67 (mL/min/1.73m2); Glucose 167 mg/dL (74-106); Potassium 4.2 mmol/L (3.5-5.1); Sodium 141 mmol/L (136-145); Total Protein 6.5 g/dL (6.4-8.2)
[2022-09-06 07:55] LABS: Diff Comment Diff Reviewed; Platelet Count 229 10^3/uL (130-400)
[2022-09-06 07:56] LABS: Hypochromasia 2+; Macrocytosis 2+; Polychromasia Present
[2022-09-07 13:44] LABS: IgA 62 mg/dL (85-499); IgG 422 mg/dL (610-1,616); IgM 145 mg/dL (35-242); Kappa Free Light Chain 105.15 mg/dL (0.33-1.94); Lambda Free Light Chain 5.17 mg/dL (0.57-2.63)
[2022-09-07 14:25] LABS: Albumin 62.1 % (55.8-66.1); Albumin g/dL 3.4 g/dL (3.6-5.2); Total Protein 5.4 g/dL (6.3-8.2)
== END 2022-09-06 06:55 | disposition home or self-care (01) ==
LOC: LBN 06:54
PROVIDERS: PCP Family Medicine; Visit Provider Internal Medicine Hematology & Oncology
DX: C90.00 Multiple myeloma not having achieved remission (principal)
CPT/HCPCS: 80053; 82784; 83883; 84165; 85025